=== PATIENT | female | born 1980 | race Caucasian/White ===

== ENCOUNTER 2024-03-09 15:18 | Emergency (ER) | payer MEDICAID, SELFPAY ==
[2024-03-09 15:21] VITALS: BP 113/79; PULSE 86; RESP 18; TEMP 36.6; O2SAT 97
[2024-03-09 15:37] VITALS: PULSE 76; RESP 16; O2SAT 98; BMI 32.9
--- NOTE | 2024-03-09 15:41 | EDNOTE_ITS ---
ED General RME/HPI General Chief complaint: Weakness Stated complaint: WEAKNESS Time Seen by Provider: 03/09/24 15:26 Arrival date/time: 03/09/24 15:18 CC: Nausea vomiting diarrhea, insomnia HPI for the past 3 days. The patient states that she has still been taking her medications. The patient came with a large bag of large number of medication which the patient takes she takes all up. The patient denies chest pain shortness of breath or difficulty breathing. Somewhat concrete thinker animated direct eye contact denies SI SA. No active vomiting or diarrhea at the time of exam. EMS reports stable vital signs and route. Related Data Home Medications ?Medication ?Instructions ?Recorded ?Confirmed fluoxetine 20 mg capsule (Prozac) 60 mg PO QAM #0 caps 11/04/16 07/04/21 quetiapine 300 mg tablet 300 mg PO QDAY 07/04/21 07/04/21 topiramate 100 mg tablet 100 mg PO BID 07/04/21 07/04/21 Previous Rx's ?Medication ?Instructions ?Recorded hydrocodone 5 mg-acetaminophen 325 1 tab PO BID PRN pain #4 tabs 07/04/21 mg tablet ibuprofen 800 mg tablet 800 mg PO TID PRN pain #30 tabs 07/04/21 ibuprofen 800 mg tablet 800 mg PO TID PRN pain #30 tabs 07/21/21 lidocaine HCl 2 % mucosal solution 10 ml PO Q6HR PRN pain #200 mL 07/21/21 (Lidocaine Viscous) tramadol 37.5 mg-acetaminophen 325 1 tab PO TID PRN pain #30 tabs 07/28/21 mg tablet (Ultracet) acetaminophen 500 mg capsule 1,000 mg (2 x 500 mg) PO Q8HR PRN 08/20/21 pain #60 caps doxycycline hyclate 100 mg tablet 100 mg PO BID #14 tabs 08/20/21 cyclobenzaprine 10 mg tablet 10 mg PO TID PRN muscle spasm #20 09/28/21 tabs naproxen 500 mg tablet (Naprosyn) 500 mg PO Q12H PRN pain #30 tabs 09/28/21 albuterol sulfate 90 mcg/actuation 2 puff inhalation Q6H PRN 11/13/21 aerosol inhaler (Ventolin HFA) shortness of breath or wheezing #8.5 grams promethazine-DM 6.25 mg-15 mg/5 mL 5 ml PO Q6H PRN cough #473 mL 11/13/21 oral syrup azithromycin 500 mg tablet See Rx Instructions PO .COMPLEX #6 12/05/21 tabs benzonatate 100 mg capsule 100 mg PO BID PRN cough #20 caps 12/05/21 albuterol sulfate 90 mcg/actuation 2 inh inhalation Q4H PRN shortness 12/16/21 aerosol inhaler of breath or wheezing #8.5 grams acetaminophen 500 mg tablet 1,000 mg (2 x 500 mg) PO Q6H PRN 05/25/22 pain #20 tabs ibuprofen 800 mg tablet 800 mg PO Q6H PRN pain #10 tabs 05/25/22 sennosides 8.6 mg-docusate sodium 1 tab-cap PO QDAY #10 tabs 05/25/22 50 mg tablet (Senokot-S) hydrocodone 5 mg-acetaminophen 325 1 tab PO Q8H PRN pain #10 tabs 06/01/22 mg tablet ibuprofen 800 mg tablet 800 mg PO Q8H PRN pain #30 tabs 06/01/22 magnesium citrate 300 ml PO QDAY PRN constipation 12/18/22 #296 mL Allergies Allergy/AdvReac Type Severity Reaction Status Date / Time amoxicillin Allergy Severe RASH TO Verified 01/14/23 07:52 ARMPITS Review of Systems Review of Systems Narrative Review of Systems: GEN: No fever, no chills, no weight loss EYES: No discharge, no visual changes, no pain HEENT: No ear pain, no congestion, no sore throat PULM: No shortness of breath, no cough, no congestion CV: No chest pain, no dyspnea on exertion, no palpitations GI: + nausea, + vomiting, + diarrhea, no pain, no constipation : No frequency, no urgency, no dysuria MUSC/SKEL: No joint pain, no back pain SKIN: No rash PSYCH: No hallucinations, no depression, + HEME/LYMPH: No easy bleeding or bruising tendencies NEURO: No weakness, no headache Past Medical History Past Medical History CARDIAC: Negative Cardiac Disorders or Congestive Heart Failure RESPIRATORY: Negative Chronic Obstructive Pulmonary Disease (COPD) or Asthma GENITOURINARY: Negative Renal Disease MUSCULOSKELETAL: Positive Fibromyalgia ENDOCRINE: Negative Diabetes Mellitus Type 1 or Diabetes Mellitus Type 2 HEMATOLOGIC: Negative Sickle Cell Disease PSYCHO/SOCIAL: Positive Depression, Anxiety and Behavior Problems Social History SMOKING STATUS: Current every day smoker SUBSTANCE USE: does not use ED Exam Narrative Physical exam: [General: Obese, anxious, but not in any acute distress Head normocephalic HEENT: Eyes pupils are PERRLA EOMs are intact mouth pink moist membranes uvula is midline swallow symmetrical phonation is normal nose no rhinorrhea all other subsystems of HEENT are within acceptable limits Neck is supple nontender no JVD no edema Chest equal chest rise nontender to palpation Respiratory: Clear to auscultation no wheezes crackles or rubs CV: Rate rhythm is regular no murmurs rubs or clicks Abdomen is distended secondary to body habitus soft nontender, positive bowel sounds all 4 quadrants Back: No CVA tenderness no spinous process tenderness from cervical spine thoracic and lumbar spine Skin: Intact no petechiae rash induration ulceration or crepitus Extremities: Moving all extremity against resistance cap refill less than 2 seconds neurosensory intact Neuro: Awake alert oriented x3 Glascow coma 15 no focal deficits] Course Quality Measures none Orders Category Date Time Status CBC Stat Lab 03/09/24 16:01 Completed CMP [Comprehensive Metabolic Panel] Stat Lab 03/09/24 16:01 Completed Drug Screen,Urine Stat Lab 03/09/24 15:56 Completed HCG Qualitative,Urine Stat Lab 03/09/24 15:56 Completed Urinalysis Stat Lab 03/09/24 15:56 Completed Vital Signs Vital signs: Vital Signs Temperature 97.9 F 03/09/24 15:21 Pulse Rate 86 03/09/24 15:21 Respiratory Rate 18 03/09/24 15:21 Blood Pressure 113/79 03/09/24 15:21 Pulse Oximetry (%) 97 03/09/24 15:21 Oxygen Delivery Method Room Air 03/09/24 15:21 [facility] Patient data External records reviewed:: [facility] previous records and EMS form Clinical information provided by:: patient and EMS Social determinants that could affect healthcare access:: mental health Patient has the following chronic illnesses:: Schizophrenia How is presenting disease/condition affected by chronic disease/condition?: u neffected by Evaluation data The following diagnostics were reviewed and interpreted by me:: lab results Lab and/or radiology exams considered but not ordered:: CBC shows no acute leukocytosis anemia thrombocytopenia CMP shows no acute electrolyte imbalances renal impairment transaminitis or T. bili elevation Urine is negative for UTI UDS is positive for methamphetamines Urine is negative Interpretation Summary: Patient most likely cannot sleep secondary to methamphetamine use patient will be discharged home. Patient has had no nausea vomiting or diarrhea since admission to the emergency room. Medications Medications considered but not ordered:: None Medication administrations:: None Consultations Consultation(s) initiated? (list below): No Diagnosis Differential Diagnosis ED Complaint MDM: Methamphetamine abuse nausea vomiting Most likely diagnosis given after review of the tests above:: Methamphetamine abuse nausea vomiting Admission Indicated Admission indicated?: not indicated Explain why admission is indicated or not indicated:: Stable for outpatient follow-up Admission Request Was there a request for admission?: No Disposition Plan Disposition Plan: Discharge Discharge Attestation Discharge Attestation: The patient and all family members were given an opportunity to ask questions and understood the discharge instructions. Discharge instructions specifically effects, indications for sooner follow up or return to the emergency department, and the expected course of current diagnosis. Patient condition: Stable Medical Decision Making Differential Diagnosis Differential Diagnosis: Methamphetamine abuse nausea vomiting Lab Data 03/09/24 16:01 03/09/24 16:01 Labs: Lab Results 03/09/24 03/09/24 Range/Units 15:56 16:01 WBC 10.6 (3.6-11.0) Thou/mm3 RBC 5.55 H (4.00-5.20) Miln/mm3 Hgb 17.5 H (12.0-16.0) g/dL Hct 49.1 H (36.0-46.0) % MCV 89 (80-100) fL MCH 31.5 (25.0-35.0) pg MCHC 35.6 (31.0-37.0) g/dl RDW Std Deviation 40.5 (36.4-46.3) fL Plt Count 343 (140-440) Thou/mm3 Neut % (Auto) 67 (37-80) % Lymph % (Auto) 22 (10-50) % Ogle % (Auto) 10 (0-12) % Eos % (Auto) 1 (0-10) % Baso % (Auto) 1 (0-2.5) % Neut # (Auto) 7.1 (1.8-7.7) Thou/mm3 Lymph # (Auto) 2.3 (1.0-4.8) Thou/mm3 Ogle # (Auto) 1.0 H (0.0-0.8) Thou/mm3 Eos # (Auto) 0.1 (0.0-0.5) Thou/mm3 Baso # (Auto) 0.1 (0.0-0.2) Thou/mm3 Immature Gran # (Auto) 0.04 H (0.00-0.00) Thou/mm3 Absolute Nucleated RBC 0.00 (0.00-0.00) Thou/mm3 Immature Gran % 0 (0-0) % Nucleated RBC % 0 (0) /100 WBC Sodium 136 (136-145) mMol/L Potassium 3.4 (3.4-5.1) mMol/L Chloride 106 (98-107) mMol/L Carbon Dioxide 20.5 (20.0-31.0) mMol/L Anion Gap 10 (7-16) BUN 12 (9-23) mg/dL Creatinine 0.9 (0.6-1.3) mg/dL Estim Creat Clear Calc 79.0 (>60) mL/min eGFR > 60 (60 - ) See Note BUN/Creatinine Ratio 13 (12-20) Ratio Glucose 98 (74-106) mg/dL Calculated Osmolality 271 L (275-295) Calcium 10.9 H (8.3-10.6) mg/dL Corrected Calcium 10.9 H (8.5-10.1) mg/dL Total Bilirubin 0.5 (0.3-1.2) mg/dL AST 11 (0-34) U/L ALT 19 (10-49) U/L Alkaline Phosphatase 71 (46-116) U/L Total Protein 7.3 (5.7-8.2) gm/dL Albumin 4.9 (3.5-5.0) gm/dL Globulin 2.4 (2.3-3.5) gm/dL Albumin/Globulin Ratio 2.0 (1.2-2.2) Ur Collection Type Clean Catch Urine Color Yellow (Lt Yel-Yel) Urine Clarity Hazy (Clear/Hazy) Urine pH 6.0 (5.0-7.0) Ur Specific [place] 1.027 (1.001-1.035) Urine Protein 1+ A (Neg - Trace) Urine Glucose (UA) Negative (Negative) Urine Ketones 3+ A (Negative) Urine Blood 1+ A (Negative) Urine Nitrite Negative (Negative) Urine Bilirubin 1+ A (Negative) Urine Urobilinogen (Auto) 3.0 (0.0-1.0) mg/dL Ur Leukocyte Esterase Negative (Negative) Urine RBC 11 H (0-3) /hpf Urine WBC 22 H (0-5) /hpf Ur Squamous Epith Cells 22 H (0-5) /hpf Urine Bacteria 3+ A (None) Hyaline Casts < 1 (0-1) /hpf Urine HCG, Qual Negative Urine Opiates Screen Negative (Negative) Urine Fentanyl Screen Negative (Negative) Ur Barbiturates Screen Negative (Negative) U Amphetamin/Meth Scrn Positive A (Negative) U Benzodiazepines Scrn Negative (Negative) U Cocaine Metab Screen Negative (Negative) U Marijuana (THC) Screen Positive A (Negative) Discharge Plan Plan Patient Disposition: HOME (Self Care) Patient condition on transfer: Stable Prescriptions/Referrals Prescriptions/Med Rec: No Action fluoxetine [Prozac] 20 MG capsule 60 mg PO QAM Qty: 0 ibuprofen 800 mg tablet 800 mg PO TID PRN (Reason: pain) Qty: 30 0RF lidocaine HCl [Lidocaine Viscous] 2 % solution 10 ml PO Q6HR PRN (Reason: pain ) Qty: 200 0RF quetiapine 300 mg tablet 300 mg PO QDAY Patient Comments: TAKE 2 TABLETS BY MOUTH EVERY NIGHT AT BEDTIME topiramate 100 mg Tablet 100 mg PO BID ibuprofen 800 mg tablet 800 mg PO TID PRN (Reason: pain) Qty: 30 0RF hydrocodone-acetaminophen 5-325 mg tablet 1 tab PO BID MDD 10 PRN (Reason: pain) Qty: 4 0RF tramadol-acetaminophen [Ultracet] 37.5-325 mg tablet 1 tab PO TID PRN (Reason: pain) Qty: 30 0RF acetaminophen 500 mg capsule 1,000 mg PO Q8HR PRN (Reason: pain) Qty: 60 0RF doxycycline hyclate 100 mg tablet 100 mg PO BID Qty: 14 0RF naproxen [Naprosyn] 500 mg tablet 500 mg PO Q12H PRN (Reason: pain) Qty: 30 0RF cyclobenzaprine 10 mg tablet 10 mg PO TID PRN (Reason: muscle spasm) Qty: 20 0RF albuterol sulfate [Ventolin HFA] 90 mcg/actuation HFA aerosol inhaler 2 puff inhalation Q6H PRN (Reason: shortness of breath or wheezing) Qty: 8.5 0RF promethazine-DM 6.25-15 mg/5 mL syrup 5 ml PO Q6H PRN (Reason: cough) Qty: 473 0RF albuterol sulfate 90 mcg/actuation HFA aerosol inhaler 2 inh inhalation Q4H PRN (Reason: shortness of breath or wheezing) Qty: 8.5 0RF ibuprofen 800 mg tablet 800 mg PO Q6H PRN (Reason: pain) Qty: 10 0RF acetaminophen 500 mg tablet 1,000 mg PO Q6H PRN (Reason: pain) Qty: 20 0RF sennosides-docusate sodium [Senokot-S] 8.6-50 mg tablet 1 tab-cap PO QDAY Qty: 10 0RF magnesium citrate Solution 300 ml PO QDAY PRN (Reason: constipation) Qty: 296 0RF azithromycin 500 mg tablet See Rx Instructions .ROUTE .COMPLEX Qty: 6 0RF Rx Instructions: take 500 mg today (day 1), then 250 mg for 4 days (days 2-5) benzonatate 100 mg capsule 100 mg PO BID PRN (Reason: cough) Qty: 20 0RF ibuprofen 800 mg tablet 800 mg PO Q8H PRN (Reason: pain) Qty: 30 0RF hydrocodone-acetaminophen 5-325 mg tablet 1 tab PO Q8H MDD 10 PRN (Reason: pain) Qty: 10 0RF Referrals: Avinash Patel MD [Primary Care Provider] - In 1 week Problem List Clinical Impression: Methamphetamine abuse, Nausea & vomiting Patient/Caregiver Discharge Instructions Education Materials: Understanding Methamphetamine ..., ED Diet for Vomiting or ... Print Language: Kazakh Stand Alone Forms: Carola Award Info., Patient Portal Info Letter, Work/School Release PA/DIE MAKER STAMPING Supervising Physician PA/DIE MAKER STAMPING Supervising Physician: John Pang ENP
[2024-03-09 16:06] LABS: Collection Type, Urine Clean Catch
[2024-03-09 16:26] LABS: Amphetamine/Methamp Scrn,U Positive (Negative); Barbiturate Screen,Urine Negative (Negative); Benzodiazepines Screen,Urine Negative (Negative); Benzoylecgonine Screen, Ur Negative (Negative); Fentanyl Screen,Urine Negative (Negative); Opiate Screen,Urine Negative (Negative); THC Screen,Urine Positive (Negative)
[2024-03-09 16:26] LABS: Basophils # (Auto) 0.1 Thou/mm3 (0.0-0.2); Basophils % (Auto) 1 % (0-2.5); Eosinophils # (Auto) 0.1 Thou/mm3 (0.0-0.5); Eosinophils % (Auto) 1 % (0-10); Hematocrit 49.1 % (36.0-46.0); Hemoglobin 17.5 g/dL (12.0-16.0); Immature Granulocytes % (Auto) 0 % (0-0); Immature Granulocytes Auto 0.04 Thou/mm3 (0.00-0.00); Lymphocytes # (Auto) 2.3 Thou/mm3 (1.0-4.8); Lymphocytes % (Auto) 22 % (10-50); Mean Corpuscular HGB Conc 35.6 g/dl (31.0-37.0); Mean Corpuscular Hemoglobin 31.5 pg (25.0-35.0); Mean Corpuscular Volume 89 fL (80-100); Monocytes % (Auto) 10 % (0-12); Neutrophils # (Auto) 7.1 Thou/mm3 (1.8-7.7); Neutrophils % (Auto) 67 % (37-80); Nucleated Red Blood Cell % 0 /100 WBC (0); Platelet Count 343 Thou/mm3 (140-440); RDW Standard Deviation 40.5 fL (36.4-46.3); Red Blood Count 5.55 Miln/mm3 (4.00-5.20); White Blood Count 10.6 Thou/mm3 (3.6-11.0)
[2024-03-09 16:32] LABS: Bacteria,Urine 3+; Bilirubin,Urine 1+ (Negative); Blood,Urine 1+ (Negative); Clarity,Urine Hazy (Clear/Hazy); Color,Urine Yellow (Lt Yel-Yel); Glucose, Urine Negative (Negative); Hyaline Casts,Urine < 1 /hpf (0-1); Ketones,Urine 3+ (Negative); Leukocyte Esterase,Urine Negative (Negative); Nitrite,Urine Negative (Negative); Protein,Urine 1+ (Neg - Trace); RBC,Urine 11 /hpf (0-3); Specific Gravity,Urine 1.027 (1.001-1.035); Squamous Epithelial Cell,Urine 22 /hpf (0-5); WBC,Urine 22 /hpf (0-5)
[2024-03-09 16:37] VITALS: BP 104/77; PULSE 84; RESP 16; TEMP 36.6; O2SAT 98
[2024-03-09 16:38] LABS: HCG Qualitative,Urine Negative
[2024-03-09 16:46] LABS: Alanine Aminotransferase 19 U/L (10-49); Albumin, Serum 4.9 gm/dL (3.5-5.0); Alkaline Phosphatase 71 U/L (46-116); Anion Gap 10 (7-16); Aspartate Amino Transferase 11 U/L (0-34); BUN/Creatinine Ratio 13 Ratio (12-20); Bilirubin,Total 0.5 mg/dL (0.3-1.2); Blood Urea Nitrogen 12 mg/dL (9-23); Calcium 10.9 mg/dL (8.3-10.6); Calcium (Corrected) 10.9 mg/dL (8.5-10.1); Carbon Dioxide 20.5 mMol/L (20.0-31.0); Chloride 106 mMol/L (98-107); Creatinine (Component) 0.9 mg/dL (0.6-1.3); Globulin 2.4 gm/dL (2.3-3.5); Glucose 98 mg/dL (74-106); Osmolality,Calculated 271 (275-295); Potassium 3.4 mMol/L (3.4-5.1); Sodium 136 mMol/L (136-145); Total Protein 7.3 gm/dL (5.7-8.2); eGFR > 60 See Note
== END 2024-03-09 17:03 | disposition home or self-care (01) ==
PROVIDERS: Registered Nurse General Practice; Emergency Provider Emergency Medicine; PCP Family Medicine
DX: F15.10 Other stimulant abuse, uncomplicated (principal); R11.2 Nausea with vomiting, unspecified; G47.00 Insomnia, unspecified
CPT/HCPCS: 36415; 80053; 80307; 81001; 81025; 85025; 99283

== ENCOUNTER 2024-04-11 13:39 | Emergency (ER) | payer MEDICAID, SELFPAY ==
[2024-04-11 13:43] VITALS: BMI 32.3
[2024-04-11 13:58] VITALS: BP 126/87; PULSE 98; RESP 19; TEMP 36.6; O2SAT 96
--- NOTE | 2024-04-11 14:08 | EDNOTE_ITS ---
ED General RME/HPI General Chief complaint: Recheck/Abnormal Lab/Rx Stated complaint: Need RX for Seroquil Time Seen by Provider: 04/11/24 14:01 Arrival date/time: 04/11/24 13:39 CC: Insomnia HPI patient is requesting a refill of her Seroquel secondary to insomnia created for not taking it for the past 4 days patient is awake alert oriented has no new complaints. Related Data Home Medications ?Medication ?Instructions ?Recorded ?Confirmed fluoxetine 20 mg capsule (Prozac) 60 mg PO QAM #0 caps 11/04/16 07/04/21 quetiapine 300 mg tablet 300 mg PO QDAY 07/04/21 07/04/21 topiramate 100 mg tablet 100 mg PO BID 07/04/21 07/04/21 Previous Rx's ?Medication ?Instructions ?Recorded hydrocodone 5 mg-acetaminophen 325 1 tab PO BID PRN pain #4 tabs 07/04/21 mg tablet ibuprofen 800 mg tablet 800 mg PO TID PRN pain #30 tabs 07/04/21 ibuprofen 800 mg tablet 800 mg PO TID PRN pain #30 tabs 07/21/21 lidocaine HCl 2 % mucosal solution 10 ml PO Q6HR PRN pain #200 mL 07/21/21 (Lidocaine Viscous) tramadol 37.5 mg-acetaminophen 325 1 tab PO TID PRN pain #30 tabs 07/28/21 mg tablet (Ultracet) acetaminophen 500 mg capsule 1,000 mg (2 x 500 mg) PO Q8HR PRN 08/20/21 pain #60 caps doxycycline hyclate 100 mg tablet 100 mg PO BID #14 tabs 08/20/21 cyclobenzaprine 10 mg tablet 10 mg PO TID PRN muscle spasm #20 09/28/21 tabs naproxen 500 mg tablet (Naprosyn) 500 mg PO Q12H PRN pain #30 tabs 09/28/21 albuterol sulfate 90 mcg/actuation 2 puff inhalation Q6H PRN 11/13/21 aerosol inhaler (Ventolin HFA) shortness of breath or wheezing #8.5 grams promethazine-DM 6.25 mg-15 mg/5 mL 5 ml PO Q6H PRN cough #473 mL 11/13/21 oral syrup azithromycin 500 mg tablet See Rx Instructions PO .COMPLEX #6 12/05/21 tabs benzonatate 100 mg capsule 100 mg PO BID PRN cough #20 caps 12/05/21 albuterol sulfate 90 mcg/actuation 2 inh inhalation Q4H PRN shortness 12/16/21 aerosol inhaler of breath or wheezing #8.5 grams acetaminophen 500 mg tablet 1,000 mg (2 x 500 mg) PO Q6H PRN 05/25/22 pain #20 tabs ibuprofen 800 mg tablet 800 mg PO Q6H PRN pain #10 tabs 05/25/22 sennosides 8.6 mg-docusate sodium 1 tab-cap PO QDAY #10 tabs 05/25/22 50 mg tablet (Senokot-S) hydrocodone 5 mg-acetaminophen 325 1 tab PO Q8H PRN pain #10 tabs 06/01/22 mg tablet ibuprofen 800 mg tablet 800 mg PO Q8H PRN pain #30 tabs 06/01/22 magnesium citrate 300 ml PO QDAY PRN constipation 12/18/22 #296 mL quetiapine 300 mg tablet (Seroquel) 300 mg PO .qhs #30 tabs 04/11/24 Allergies Allergy/AdvReac Type Severity Reaction Status Date / Time amoxicillin Allergy Severe RASH TO Verified 01/14/23 07:52 ARMPITS Review of Systems Review of Systems Narrative Review of Systems: GEN: No fever, no chills, no weight loss,+ insomnia EYES: No discharge, no visual changes, no pain HEENT: No ear pain, no congestion, no sore throat PULM: No shortness of breath, no cough, no congestion CV: No chest pain, no dyspnea on exertion, no palpitations GI: No nausea, no vomiting, no diarrhea, no pain, no constipation : No frequency, no urgency, no dysuria MUSC/SKEL: No joint pain, no back pain SKIN: No rash PSYCH: No hallucinations, no depression HEME/LYMPH: No easy bleeding or bruising tendencies NEURO: No weakness, no headache Past Medical History Past Medical History CARDIAC: Negative Cardiac Disorders or Congestive Heart Failure RESPIRATORY: Negative Chronic Obstructive Pulmonary Disease (COPD) or Asthma GENITOURINARY: Negative Renal Disease MUSCULOSKELETAL: Positive Fibromyalgia ENDOCRINE: Negative Diabetes Mellitus Type 1 or Diabetes Mellitus Type 2 HEMATOLOGIC: Negative Sickle Cell Disease PSYCHO/SOCIAL: Positive Depression, Anxiety and Behavior Problems Social History SMOKING STATUS: Former smoker SUBSTANCE USE: does not use ED Exam Narrative Physical exam: [General: Obese not in any acute distress Head normocephalic HEENT: Within acceptable limits Neck is supple nontender Chest equal chest rise nontender to palpation Respiratory: Clear to auscultation no wheezes crackles or rubs CV: Rate rhythm is regular no murmurs rubs or clicks Abdomen is distended secondary to body habitus soft nontender no masses positive bowel sounds all 4 quadrants Back: No CVA tenderness no spinous process tenderness from cervical spine thoracic and lumbar spine Skin: Intact no petechiae rash induration ulceration or crepitus Extremities: Moving all extremity against resistance cap refill less than 2 seconds neurosensory intact Neuro: Awake alert oriented x3 Glascow coma 15 no focal deficits] Course Quality Measures VTE prophylaxis Vital Signs Vital signs: Vital Signs Temperature 97.9 F 04/11/24 13:58 Pulse Rate 98 04/11/24 13:58 Respiratory Rate 19 04/11/24 13:58 Blood Pressure 126/87 H 04/11/24 13:58 Pulse Oximetry (%) 96 04/11/24 13:58 Oxygen Delivery Method Room Air 04/11/24 13:58 MDM Patient data External records reviewed:: [facility] previous records Clinical information provided by:: patient Social determinants that could affect healthcare access:: mental health Patient has the following chronic illnesses:: None How is presenting disease/condition affected by chronic disease/condition?: uneffected by Evaluation data The following diagnostics were reviewed and interpreted by me:: other (specify) (None) Lab and/or radiology exams considered but not ordered:: None Interpretation Summary: Medication refill Medications Medications considered but not ordered:: None Medication administrations:: None Consultations Consultation(s) initiated? (list below): No Diagnosis Differential Diagnosis ED Complaint MDM: Medication refill medication noncompliance medication abuse Most likely diagnosis given after review of the tests above:: Medication filled for bipolar disorder Admission Indicated Admission indicated?: not indicated Explain why admission is indicated or not indicated:: Stable for outpatient follow-up Admission Request Was there a request for admission?: No Disposition Plan Disposition Plan: Discharge Discharge Attestation Discharge Attestation: The patient and all family members were given an opportunity to ask questions and understood the discharge instructions. Discharge instructions specifically effects, indications for sooner follow up or return to the emergency department, and the expected course of current diagnosis. Patient condition: Stable Medical Decision Making Differential Diagnosis Differential Diagnosis: Medication refill medication noncompliance medication abuse Discharge Plan Plan Patient Disposition: HOME (Self Care) Patient condition on transfer: Stable Prescriptions/Referrals Prescriptions/Med Rec: New quetiapine [Seroquel] 300 mg tablet 300 mg PO .qhs Qty: 30 0RF No Action fluoxetine [Prozac] 20 MG capsule 60 mg PO QAM Qty: 0 ibuprofen 800 mg tablet 800 mg PO TID PRN (Reason: pain) Qty: 30 0RF lidocaine HCl [Lidocaine Viscous] 2 % solution 10 ml PO Q6HR PRN (Reason: pain ) Qty: 200 0RF quetiapine 300 mg tablet 300 mg PO QDAY Patient Comments: TAKE 2 TABLETS BY MOUTH EVERY NIGHT AT BEDTIME topiramate 100 mg Tablet 100 mg PO BID ibuprofen 800 mg tablet 800 mg PO TID PRN (Reason: pain) Qty: 30 0RF hydrocodone-acetaminophen 5-325 mg tablet 1 tab PO BID MDD 10 PRN (Reason: pain) Qty: 4 0RF tramadol-acetaminophen [Ultracet] 37.5-325 mg tablet 1 tab PO TID PRN (Reason: pain) Qty: 30 0RF acetaminophen 500 mg capsule 1,000 mg PO Q8HR PRN (Reason: pain) Qty: 60 0RF doxycycline hyclate 100 mg tablet 100 mg PO BID Qty: 14 0RF naproxen [Naprosyn] 500 mg tablet 500 mg PO Q12H PRN (Reason: pain) Qty: 30 0RF cyclobenzaprine 10 mg tablet 10 mg PO TID PRN (Reason: muscle spasm) Qty: 20 0RF albuterol sulfate [Ventolin HFA] 90 mcg/actuation HFA aerosol inhaler 2 puff inhalation Q6H PRN (Reason: shortness of breath or wheezing) Qty: 8.5 0RF promethazine-DM 6.25-15 mg/5 mL syrup 5 ml PO Q6H PRN (Reason: cough) Qty: 473 0RF albuterol sulfate 90 mcg/actuation HFA aerosol inhaler 2 inh inhalation Q4H PRN (Reason: shortness of breath or wheezing) Qty: 8.5 0RF ibuprofen 800 mg tablet 800 mg PO Q6H PRN (Reason: pain) Qty: 10 0RF acetaminophen 500 mg tablet 1,000 mg PO Q6H PRN (Reason: pain) Qty: 20 0RF sennosides-docusate sodium [Senokot-S] 8.6-50 mg tablet 1 tab-cap PO QDAY Qty: 10 0RF magnesium citrate Solution 300 ml PO QDAY PRN (Reason: constipation) Qty: 296 0RF azithromycin 500 mg tablet See Rx Instructions .ROUTE .COMPLEX Qty: 6 0RF Rx Instructions: take 500 mg today (day 1), then 250 mg for 4 days (days 2-5) benzonatate 100 mg capsule 100 mg PO BID PRN (Reason: cough) Qty: 20 0RF ibuprofen 800 mg tablet 800 mg PO Q8H PRN (Reason: pain) Qty: 30 0RF hydrocodone-acetaminophen 5-325 mg tablet 1 tab PO Q8H MDD 10 PRN (Reason: pain) Qty: 10 0RF Problem List Clinical Impression: Bipolar disorder Patient/Caregiver Discharge Instructions Education Materials: ED Bipolar Disorder Print Language: Irish Stand Alone Forms: Carola Award Info., Work/School Release, Patient Portal Info Letter PA/REGIONAL ACCOUNT EXECUTIVE Supervising Physician PA/REGIONAL ACCOUNT EXECUTIVE Supervising Physician: John Pang ENP
== END 2024-04-11 14:31 | disposition home or self-care (01) ==
LOC: SERX 14:21
PROVIDERS: Emergency Provider Emergency Medicine; PCP Family Medicine
DX: F31.9 Bipolar disorder, unspecified (principal)
CPT/HCPCS: 99281

== ENCOUNTER 2024-06-14 17:26 | Emergency (ER) | payer MEDICAID, SELFPAY ==
[2024-06-14 17:52] VITALS: BP 138/94; PULSE 84; RESP 20; TEMP 36.5; O2SAT 95
--- NOTE | 2024-06-14 17:57 | EDRME_ITS ---
Rapid Medical Screening Exam COUNTS INCLUDE 234 BEDS AT THE [facility] Arrival date/time: 06/14/24 17:26 44-year-old female with no known medical history presents to the emergency room with a chief complaint of nausea vomiting x 1 day. Patient states she was also having suicidal thoughts and states her plan is to take a bottle full of pills. I have greeted and performed a focused initial assessment of this patient. A comprehensive ED assessment and evaluation of the patient, analysis of all test results, and completion of the medical decision making process will be conducted by additional ED providers. Chief Complaint: Shortness of Breath/Dyspnea Vital signs: Vital Signs Temperature 97.7 F 06/14/24 17:52 Pulse Rate 84 06/14/24 17:52 Respiratory Rate 20 06/14/24 17:52 Blood Pressure 138/94 H 06/14/24 17:52 Pulse Oximetry (%) 95 06/14/24 17:52 Oxygen Delivery Method Room Air 06/14/24 17:52 Vital signs reviewed by provider: Yes
[2024-06-14] MEDS: ACETAMINOPHEN 325 MG TABLET 650 MG PO (18:34)
[2024-06-14] MEDS: ONDANSETRON ODT 4 MG TABRAP PO (18:35)
[2024-06-14 18:56] LABS: Basophils % (Auto) 0 % (0-2.5); Eosinophils # (Auto) 0.1 Thou/mm3 (0.0-0.5); Eosinophils % (Auto) 1 % (0-10); Hematocrit 46.3 % (36.0-46.0); Hemoglobin 15.4 g/dL (12.0-16.0); Immature Granulocytes % (Auto) 1 % (0-0); Immature Granulocytes Auto 0.05 Thou/mm3 (0.00-0.00); Lymphocytes # (Auto) 2.5 Thou/mm3 (1.0-4.8); Lymphocytes % (Auto) 23 % (10-50); Mean Corpuscular HGB Conc 33.3 g/dl (31.0-37.0); Mean Corpuscular Hemoglobin 29.1 pg (25.0-35.0); Mean Corpuscular Volume 87 fL (80-100); Monocytes # (Auto) 1.1 Thou/mm3 (0.0-0.8); Monocytes % (Auto) 10 % (0-12); Neutrophils # (Auto) 7.1 Thou/mm3 (1.8-7.7); Neutrophils % (Auto) 65 % (37-80); Nucleated Red Blood Cell % 0 /100 WBC (0); Platelet Count 337 Thou/mm3 (140-440); White Blood Count 10.9 Thou/mm3 (3.6-11.0)
[2024-06-14 19:16] LABS: Alanine Aminotransferase 44 U/L (10-49); Albumin, Serum 4.8 gm/dL (3.5-5.0); Albumin/Globulin Ratio 1.8 (1.2-2.2); Alkaline Phosphatase 64 U/L (46-116); Anion Gap 10 (7-16); Aspartate Amino Transferase 42 U/L (0-34); BUN/Creatinine Ratio 10 Ratio (12-20); Bilirubin,Total 0.8 mg/dL (0.3-1.2); Blood Urea Nitrogen 12 mg/dL (9-23); Calcium 11.7 mg/dL (8.3-10.6); Calcium (Corrected) 11.7 mg/dL (8.5-10.1); Carbon Dioxide 23.8 mMol/L (20.0-31.0); Chloride 100 mMol/L (98-107); Creatinine (Component) 1.2 mg/dL (0.6-1.3); Globulin 2.7 gm/dL (2.3-3.5); Glucose 93 mg/dL (74-106); Osmolality,Calculated 267 (275-295); Potassium 3.3 mMol/L (3.4-5.1); Sodium 134 mMol/L (136-145); Total Protein 7.5 gm/dL (5.7-8.2); eGFR 57 See Note
[2024-06-14 19:43] LABS: Collection Type, Urine Clean Catch
[2024-06-14 19:55] LABS: Bacteria,Urine Rare; Bilirubin,Urine Negative (Negative); Blood,Urine Negative (Negative); Clarity,Urine Clear (Clear/Hazy); Color,Urine Colorless (Lt Yel-Yel); Culture Indicated,Urine Not Indicated; Glucose, Urine Negative (Negative); Ketones,Urine Negative (Negative); Leukocyte Esterase,Urine Negative (Negative); Nitrite,Urine Negative (Negative); Protein,Urine Negative (Neg - Trace); RBC,Urine 1 /hpf (0-3); Specific Gravity,Urine 1.006 (1.001-1.035); Squamous Epithelial Cell,Urine 6 /hpf (0-5); Urobilinogen,Urine Negative mg/dL (0.0-1.0); WBC,Urine 1 /hpf (0-5)
[2024-06-14 19:56] LABS: HCG Qualitative,Urine Negative
[2024-06-14 20:02] VITALS: BP 94/68; PULSE 118; RESP 18; TEMP 36.7; O2SAT 97
[2024-06-14 20:05] LABS: Amphetamine/Methamp Scrn,U Positive (Negative); Barbiturate Screen,Urine Negative (Negative); Benzodiazepines Screen,Urine Negative (Negative); Benzoylecgonine Screen, Ur Negative (Negative); Fentanyl Screen,Urine Negative (Negative); Opiate Screen,Urine Negative (Negative); THC Screen,Urine Negative (Negative)
--- NOTE | 2024-06-15 00:50 | PC.NURSE ---
[facility]
--- NOTE | 2024-06-15 02:13 | PC.NURSE ---
N/A FROM [facility]
--- NOTE | 2024-06-15 02:49 | PC.NURSE ---
[facility]
== END 2024-06-15 02:49 | disposition left against medical advice (07) ==
PROVIDERS: Nurse Practitioner Family; Emergency Provider Emergency Medicine; PCP Family Medicine
DX: R06.02 Shortness of breath (principal); R06.00 Dyspnea, unspecified; R11.2 Nausea with vomiting, unspecified; R45.851 Suicidal ideations; Z53.29 Procedure and treatment not carried out because of patient's decision for other reasons
CPT/HCPCS: 36415; 80053; 80307; 81001; 81025; 85025; 99281; Q0162; A9270

== ENCOUNTER 2024-07-11 15:48 | Emergency (ER) | payer MEDICAID, SELFPAY ==
[2024-07-11 15:55] VITALS: PULSE 81; RESP 20; O2SAT 99
[2024-07-11 16:05] VITALS: BP 166/88; PULSE 83; RESP 20; TEMP 36.4; O2SAT 99
--- NOTE | 2024-07-11 16:25 | XR_ITS ---
Examination: Knee, right , 3 views Technique: Knee AP, lateral, oblique 3 views Date and time of exam: July 11, 2024 1816 hrs. Indications: Injury to the knee today, knee pain. Findings: No acute fracture. No dislocation No foreign body Impression: No acute fracture
--- NOTE | 2024-07-11 16:25 | XR_ITS ---
Examination: Foot, right, 3 views Technique: AP, oblique, lateral views foot, 3 views Date and time of exam: July 11, 2024 1809 hours INDICATIONS: Injury to the foot today, foot pain. FINDINGS: Comminuted fractures proximal fifth metatarsal without significant displacement No dislocation IMPRESSION: Comminuted fractures proximal fifth metatarsal
--- NOTE | 2024-07-11 16:25 | XR_ITS ---
Examination: Tibia-Fibula, right , 2 views Technique: Tibia-fibula AP lateral 2 views Date and time of exam: July 11, 2024 1816 hrs. Indications: Injury to lower leg today, lower leg pain. Findings: Small osteocartilaginous exostosis off the proximal tibia No acute fracture No dislocation No foreign body Impression: No acute fracture
--- NOTE | 2024-07-11 16:25 | XR_ITS ---
EXAMINATION: Ankle, right 3 views . Technique: Ankle AP, oblique, lateral 3 views Date and time of exam: July 13, 2024 1811 hours INDICATIONS: Injury to the ankle today, ankle pain. FINDINGS: No acute fracture No ankle dislocation IMPRESSION: No acute ankle fracture Fracture proximal fifth metatarsal without significant displacement
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
[2024-07-11] MEDS: ACETAMINOPHEN 500 MG TABLET 1000 MG PO (16:41)
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
[2024-07-11 17:08] LABS: Collection Type, Urine Voided
[2024-07-11 17:13] LABS: Bilirubin,Urine Negative (Negative); Blood,Urine Negative (Negative); Clarity,Urine Turbid (Clear/Hazy); Color,Urine Lt-Yellow (Lt Yel-Yel); Culture Indicated,Urine Not Indicated; Glucose, Urine Negative (Negative); Ketones,Urine Negative (Negative); Leukocyte Esterase,Urine Negative (Negative); Nitrite,Urine Negative (Negative); Protein,Urine Negative (Neg - Trace); RBC,Urine 1 /hpf (0-3); Specific Gravity,Urine 1.012 (1.001-1.035); Squamous Epithelial Cell,Urine 13 /hpf (0-5); Urobilinogen,Urine Negative mg/dL (0.0-1.0); WBC,Urine 2 /hpf (0-5)
[2024-07-11 17:15] LABS: HCG Qualitative,Urine Negative
[2024-07-11 20:46] LABS: Strep A Rapid Negative (Negative)
[2024-07-11 21:27] VITALS: BP 144/98; PULSE 77; RESP 17; TEMP 36.8; O2SAT 98
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
[2024-07-11] MEDS: IBUPROFEN TAB 600 MG TABLET PO (23:18)
[2024-07-11 23:40] VITALS: BP 129/87; PULSE 81; RESP 18; TEMP 36.5; O2SAT 99
== END 2024-07-11 23:40 | disposition home or self-care (01) ==
PROVIDERS: Nurse Practitioner Family; Emergency Provider Emergency Medicine
DX: S90.31XA Contusion of right foot, initial encounter (principal); M25.571 Pain in right ankle and joints of right foot; M25.561 Pain in right knee; M79.661 Pain in right lower leg; J02.9 Acute pharyngitis, unspecified; R05.9 Cough, unspecified; R09.89 Other specified symptoms and signs involving the circulatory and respiratory systems; M79.7 Fibromyalgia; F31.9 Bipolar disorder, unspecified; F20.9 Schizophrenia, unspecified; F17.210 Nicotine dependence, cigarettes, uncomplicated; W18.40XA Slipping, tripping and stumbling without falling, unspecified, initial encounter; Y93.01 Activity, walking, marching and hiking
CPT/HCPCS: 73562; 73590; 73610; 73630; 81001; 81025; 87400; 87651; 87811; 99283; A9270

== ENCOUNTER 2024-08-21 17:14 | Emergency (ER) | payer MEDICAID, SELFPAY ==
[2024-08-21 17:30] VITALS: BP 117/76; PULSE 90; RESP 20; TEMP 37.1; O2SAT 97
--- NOTE | 2024-08-21 18:41 | XR_ITS ---
Examination: Foot, left, 3 views Technique: AP, oblique, lateral views foot, 3 views Date and time of exam: August 21, 2024 1845 hours INDICATIONS: Left foot pain beginning 3 months ago FINDINGS: Minimal narrowing first metatarsophalangeal joint No fracture. No dislocation. No cortical bone destruction Minute plantar bony calcaneal spur IMPRESSION: Minimal narrowing first metatarsophalangeal joint Minute plantar bony calcaneal spur
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
[2024-08-21 19:14] LABS: Basophils % (Auto) 1 % (0-2.5); Eosinophils # (Auto) 0.2 Thou/mm3 (0.0-0.5); Eosinophils % (Auto) 3 % (0-10); Hematocrit 35.6 % (36.0-46.0); Hemoglobin 11.9 g/dL (12.0-16.0); Immature Granulocytes % (Auto) 0 % (0-0); Immature Granulocytes Auto 0.02 Thou/mm3 (0.00-0.00); Lymphocytes # (Auto) 2.4 Thou/mm3 (1.0-4.8); Lymphocytes % (Auto) 29 % (10-50); Mean Corpuscular HGB Conc 33.4 g/dl (31.0-37.0); Mean Corpuscular Hemoglobin 29.8 pg (25.0-35.0); Mean Corpuscular Volume 89 fL (80-100); Monocytes # (Auto) 0.9 Thou/mm3 (0.0-0.8); Monocytes % (Auto) 11 % (0-12); Neutrophils # (Auto) 4.7 Thou/mm3 (1.8-7.7); Neutrophils % (Auto) 57 % (37-80); Nucleated Red Blood Cell % 0 /100 WBC (0); Platelet Count 248 Thou/mm3 (140-440); RDW Standard Deviation 55.3 fL (36.4-46.3); Red Blood Count 3.99 Miln/mm3 (4.00-5.20); White Blood Count 8.3 Thou/mm3 (3.6-11.0)
--- NOTE | 2024-08-21 19:15 | PC.NURSE ---
ASSUMED CARE OF PATIENT, PATIENT ALERT AND IN NO ACUTE DISTRESS, PT C/O BILATERAL LEG PAIN AND SWELLING WITH THE RIGHT BEING WORSE THEN THE LEFT. THE RIGHT ONE HAS BEEN GOING ON FOR 3 MONTHS AND LEFT FOR A FEW WEEKS. LEGS ARE NOTED TO BE BILATERAL MILD TO +1 PITTING EDEMA. PT STATES THAT SHE IS HUNGRY AND WOULD LIKE SOME PAIN ORDERS. PT STATES THAT SHE CANT WALK OR STAND BECUASE SHE IS IN SO MUCH PAIN BUT WAS ABLE TO CATALOG LIBRARY ASSISTANT GET TO THE BEDSIDE COMMODE AND BACK IN BED. PT STATES THAT IF SHE IS ABLE TO GET PAIN MEDS SO MAY BE ABLE TO BEAR WEIGHT AND WALK, MD MADE AWARE OF PAIN AND GAVE THE OK FOR FOOD, WILL CONTINUE WITH PLAN OF CARE
[2024-08-21 19:28] LABS: Partial Thromboplastin Time 26.7 Seconds (22.0-36.0); Prothrombin Time 10.8 Seconds (9.0-12.2)
--- NOTE | 2024-08-21 19:31 | XR_ITS ---
Examination: Right ankle 2 views Technique one AP lateral right ankle 2 views Date and time: August 21, 2024 0807 hours INDICATIONS: Right ankle swelling and pain beginning 3 days ago. FINDINGS: No fracture or ankle dislocation Fracture line through the proximal right fifth metatarsal IMPRESSION: Recommend right foot films follow-up to confirm fracture of the right fifth metatarsal
--- NOTE | 2024-08-21 19:31 | XR_ITS ---
Examination: Foot, right, 3 views Technique: AP, oblique, lateral views foot, 3 views Date and time of exam: 2011 hours INDICATIONS: Right foot swelling and pain beginning 3 days ago. FINDINGS: Acute fractures proximal aspect fifth metatarsal, up to 2 mm separation of the main fracture fragments No dislocation No foreign body IMPRESSION: Acute fractures proximal fifth metatarsal
--- NOTE | 2024-08-21 19:34 | XR_ITS ---
Examination: Venous duplex lower extremity sonogram, bilateral. Date and time of exam: August 21, 2024 1953 hours INDICATIONS: Bilateral leg swelling and pain beginning 3 months ago Technique: Multiple sonographic images of the deep venous system have been obtained. B-mode/2-D grayscale imaging of vascular structures and Doppler spectral analysis (waveforms) and color performed Both legs are examined. Findings: Deep venous systems do not demonstrate abnormal echogenicity. All visualized deep veins exhibit compressibility. All visualized deep veins exhibit augmentation. Impression: Negative for deep vein thrombosis
[2024-08-21 19:39] VITALS: BP 129/81; PULSE 95; RESP 18; TEMP 36.5; O2SAT 99
[2024-08-21 19:43] LABS: Alanine Aminotransferase 19 U/L (10-49); Albumin, Serum 3.9 gm/dL (3.5-5.0); Alkaline Phosphatase 45 U/L (46-116); Anion Gap 7 (7-16); Aspartate Amino Transferase 19 U/L (0-34); BUN/Creatinine Ratio 18 Ratio (12-20); Bilirubin,Total 0.2 mg/dL (0.3-1.2); Blood Urea Nitrogen 11 mg/dL (9-23); Calcium (Corrected) 10.1 mg/dL (8.5-10.1); Carbon Dioxide 25.7 mMol/L (20.0-31.0); Chloride 106 mMol/L (98-107); Creatinine (Component) 0.6 mg/dL (0.6-1.3); Glucose 83 mg/dL (74-106); Osmolality,Calculated 275 (275-295); Potassium 3.4 mMol/L (3.4-5.1); Sodium 139 mMol/L (136-145); Total Protein 5.9 gm/dL (5.7-8.2); eGFR > 60 See Note
[2024-08-21] MEDS: HYDROcodone/APAP 5/325 TABLET 1 TAB PO (19:45)
[2024-08-21 22:35] VITALS: BP 118/76; PULSE 100; RESP 18; TEMP 36.8; O2SAT 96
== END 2024-08-22 00:06 | disposition home or self-care (01) ==
PROVIDERS: Emergency Provider Emergency Medicine; PCP Family Medicine
DX: S92.351A Displaced fracture of fifth metatarsal bone, right foot, initial encounter for closed fracture (principal); S99.922A Unspecified injury of left foot, initial encounter; M77.32 Calcaneal spur, left foot; M25.872 Other specified joint disorders, left ankle and foot; M79.89 Other specified soft tissue disorders; M79.7 Fibromyalgia; Y09 Assault by unspecified means
CPT/HCPCS: 29515; 36415; 73600; 73630; 80053; 85025; 85610; 85730; 93970; 99284; A9270

== ENCOUNTER 2024-09-06 12:04 | Emergency (ER) | payer MEDICAID, SELFPAY ==
--- NOTE | 2024-09-06 12:05 | EKG_ITS ---
[facility] Test Date: 2024-09-06 Pat Name: SAMUEL BARRERA Department: Room: - Gender: Female [employer]: : 1980 Requested By: ED Temporary Provider Order Number: [id number] Reading MD: ED Temporary Provider Measurements Intervals [place] Rate: 79 P: 54 FL: 143 QRS: 32 QRSD: 81 T: 48 QT: 351 QTc: 402 Interpretive Statements SINUS RHYTHM No previous ECG available for comparison /store/S0/[id number]
[2024-09-06 12:10] VITALS: BP 137/81; PULSE 98; RESP 18; TEMP 36.9; O2SAT 95
[2024-09-06 12:11] VITALS: BMI 35.2
--- NOTE | 2024-09-06 12:16 | EDNOTE_ITS ---
ED General RME/HPI General Chief complaint: General Adult/Misc Complain Stated complaint: LEG PAIN,HIP PAIN, ABD PAIN, CHEST PAIN Time Seen by Provider: 09/06/24 12:12 Arrival date/time: 09/06/24 12:04 Limitations: no limitations RME / HPI RME / HPI narrative: 44-year-old female with history of Schizophrenia and Fibromyalgia presenting to the emergency department via EMS. Comes in crying stating she is ready to go into rehab. Admits to drug use. States abdominal pain nausea vomiting diarrhea. Reports chest pain. Reports back pain. Reports bilateral leg pain reports bilateral hip pain. States a few weeks ago was diagnosed with right toe fracture. Requesting the foot be wrapped. States that she is dehydrated and wants fluids. No fevers. Citing she cannot walk however getting on and off the gurney. Related Data Home Medications ?Medication ?Instructions ?Recorded ?Confirmed fluoxetine 20 mg capsule (Prozac) 60 mg PO QAM #0 caps 11/04/16 07/04/21 quetiapine 300 mg tablet 300 mg PO QDAY 07/04/21 0409/19 topiramate 100 mg tablet 100 mg PO BID 07/04/2107/04 Previous Rx's ?Medication ?Instructions ?Recorded hydrocodone 5 mg-acetaminophen 325 1 tab PO BID PRN pa in #4 tabs 07/04/21 mg tablet ibuprofen 800 mg tablet 800 mg PO TID PRN pain #30 t abs 07/04/21 ibuprofen 800 mg tablet 800 mg PO TID PRN pain #30 t abs 07/21/21 lidocaine HCl 2 % mucosal solution 10 ml PO Q6HR PRN p ain #200 mL 07/21/21 (Lidocaine Viscous) tramadol 37.5 mg-acetaminophen 325 1 tab PO TID PRN pa in #30 tabs 07/28/21 mg tablet (Ultracet) acetaminophen 500 mg capsule 1,000 mg (2 x 500 mg) PO Q8HR PRN 08/20/21 pain #60 caps doxycycline hyclate 100 mg tablet 100 mg PO BID #14 ta bs 08/20/21 cyclobenzaprine 10 mg tablet 10 mg PO TID PRN muscle s pasm #20 09/28/21 tabs naproxen 500 mg tablet (Naprosyn) 500 mg PO Q12H PRN p ain #30 tabs 09/28/21 albuterol sulfate 90 mcg/actuation 2 puff inhalation Q 6H PRN 11/13/21 aerosol inhaler (Ventolin HFA) shortness of breath or wheezing #8.5 grams promethazine-DM 6.25 mg-15 mg/5 mL 5 ml PO Q6H PRN cou gh #473 mL 11/13/21 oral syrup azithromycin 500 mg tablet See Rx Instructions PO .COM PLEX #6 12/05/21 tabs benzonatate 100 mg capsule 100 mg PO BID PRN cough #20 caps 12/05/21 albuterol sulfate 90 mcg/actuation 2 inh inhalation Q4 H PRN shortness 12/16/21 aerosol inhaler of breath or wheezing #8.5 g shawanda acetaminophen 500 mg tablet 1,000 mg (2 x 500 mg) PO Q 6H PRN 05/25/22 pain #20 tabs ibuprofen 800 mg tablet 800 mg PO Q6H PRN pain #10 t abs 05/25/22 sennosides 8.6 mg-docusate sodium 1 tab-cap PO QDAY #1 0 tabs 05/25/22 50 mg tablet (Senokot-S) hydrocodone 5 mg-acetaminophen 325 1 tab PO Q8H PRN pa in #10 tabs 06/01/22 mg tablet ibuprofen 800 mg tablet 800 mg PO Q8H PRN pain #30 t abs 06/01/22 magnesium citrate 300 ml PO QDAY PRN constipat ion 12/18/22 #296 mL quetiapine 300 mg tablet (Seroquel) 300 mg PO .qhs #30 tabs 04/11/24 quetiapine 300 mg tablet (Seroquel) 300 mg PO QDAY #30 tabs 04/11/24 permethrin 5 % topical cream 1 applic topical Q14D 2 d oses #60 07/11/24 grams dicyclomine 10 mg capsule 10 mg PO TID #30 caps meloxicam 7.5 mg tablet 7.5 mg PO QDAY #14 tabs 12/23 ondansetron 4 mg disintegrating 4 mg PO Q8H PRN nausea and 09/06/24 tablet vomiting #10 tabs Allergies Allergy/AdvReac Type Severity Reaction Status Date / Time amoxicillin Allergy Severe RASH TO Verified 09/06/24 12:15 ARMPITS Review of Systems Review of Systems Systems Reviewed: All systems reviewed, normal except as documented Constitutional Constitutional: Denies fever(s) Cardiovascular Cardiovascular: Reports as per HPI Respiratory Respiratory: Reports as per HPI Gastrointestinal Gastrointestinal: Reports as per HPI Musculoskeletal Musculoskeletal: Reports as per HPI ED Exam General Limitations: Present no limitations General appearance: Present alert and in no apparent distress Eye Eye exam: Present normal appearance, PERRL and EOMI Chest Chest inspection: Present normal inspection and symmetric chest wall rise Respiratory Respiratory exam: Present normal lung sounds bilaterally Cardiovascular Cardiovascular exam: Present regular rate, normal rhythm and normal heart sounds Abdominal Exam Abdominal exam: Present soft, tenderness (Diffuse, no rebound) and normal bowel sounds Extremities Exam Extremities exam: Present other (Right foot in splint with Vinnie wrap. Able to ambulate with splint; bilateral hip TTP) Back Exam Back exam: Present normal inspection, full ROM and tenderness (The PCP to) Psychiatric Psychiatric exam: Present normal affect and normal mood Skin Skin exam: Present warm, dry, intact and normal color Course Quality Measures none Orders Category Date Time Status CT Screening NOW Care 09/06/24 12:17 Completed EKG (ED ONLY) *Do not use* NOW Care 09/06/24 12:05 Completed Insert IV NOW Care 09/06/24 12:20 Completed Splint / Immobilizer STAT Care 09/06/24 15:[address] abdomen pelvis w con Stat Exams 09/06/24 12:17 Completed EKG (ED Only) Stat Exams 09/06/24 12:05 Draft XR chest 2V Stat Exams 09/06/24 12:17 Completed XR hip BI w pelvis 2V Stat Exams 09/06/24 12:22 Completed BNP [B-Type Natriuretic Peptide] Stat Lab 09/06/24 12:28 Completed CBC Stat Lab 09/06/24 12:28 Completed CMP [Comprehensive Metabolic Panel] Stat Lab 09/06/24 12:28 Completed HCG,Qualitative Serum Stat Lab 09/06/24 12:28 Completed Lipase Stat Lab 09/06/24 12:28 Completed Troponin I Stat Lab 09/06/24 12:28 Completed HYDROcodone*/APAP 5/325 [[place] 5/325] Med 09/06/24 12:17 Discontinued 1 tab PO X1 ONE HYDROcodone*/APAP 5/325 [[place] 5/325] Med 09/06/24 14:44 Discontinued 1 tab PO X1 ONE Ketorolac Inj [Toradol Inj] Med 09/06/24 12:20 Discontinued 30 mg IM X1 ONE Potassium Chloride [K-Dur] Med 09/06/24 15:47 Discontinued 20 meq PO X1 ONE Sodium Chloride 0.9% 1000 ml [Ns] 1,000 ml Med 09/06/24 14:44 Discontinued IV 999 mls/hr Vital Signs Vital signs: Vital Signs Temperature 98.4 F 09/06/24 12:10 Pulse Rate 98 09/06/24 12:10 Respiratory Rate 18 09/06/24 12:10 Blood Pressure 137/81 H 09/06/24 12:10 Pulse Oximetry (%) 95 09/06/24 12:10 Oxygen Delivery Method Room Air 09/06/24 12:10 Procedures -ED EKG Interpretation #1: Date of EK09/06/24 Time of EK:15 Rate: 79 Interpretation: Interpreted by me EKG Impression: Normal sinus rhythm, No acute ST-T changes and No ectopy Splint Fabrication: Pre-Fabricated Type: Posterior Leg Reason for Splint: Pain Management Site condition: Pain Circulation Distal to Splint: Yes Movement Distal to Splint: Yes Senation Distal to Splint: Yes Tolerance: Tolerates Well Discharge Plan Plan Patient Disposition: HOME (Self Care) Prescriptions/Referrals Prescriptions/Med Rec: New ondansetron 4 mg tablet,disintegrating 4 mg PO Q8H PRN (Reason: nausea and vomiting) Qty: 10 0RF dicyclomine 10 mg capsule 10 mg PO TID Qty: 30 0RF meloxicam 7.5 mg tablet 7.5 mg PO QDAY Qty: 14 0RF No Action fluoxetine [Prozac] 20 MG capsule 60 mg PO QAM Qty: 0 ibuprofen 800 mg tablet 800 mg PO TID PRN (Reason: pain) Qty: 30 0RF lidocaine HCl [Lidocaine Viscous] 2 % solution 10 ml PO Q6HR PRN (Reason: pain ) Qty: 200 0RF quetiapine 300 mg tablet 300 mg PO QDAY Patient Comments: TAKE 2 TABLETS BY MOUTH EVERY NIGHT AT BEDTIME topiramate 100 mg Tablet 100 mg PO BID ibuprofen 800 mg tablet 800 mg PO TID PRN (Reason: pain) Qty: 30 0RF hydrocodone-acetaminophen 5-325 mg tablet 1 tab PO BID MDD 10 PRN (Reason: pain) Qty: 4 0RF tramadol-acetaminophen [Ultracet] 37.5-325 mg tablet 1 tab PO TID PRN (Reason: pain) Qty: 30 0RF acetaminophen 500 mg capsule 1,000 mg PO Q8HR PRN (Reason: pain) Qty: 60 0RF doxycycline hyclate 100 mg tablet 100 mg PO BID Qty: 14 0RF naproxen [Naprosyn] 500 mg tablet 500 mg PO Q12H PRN (Reason: pain) Qty: 30 0RF cyclobenzaprine 10 mg tablet 10 mg PO TID PRN (Reason: muscle spasm) Qty: 20 0RF albuterol sulfate [Ventolin HFA] 90 mcg/actuation HFA aerosol inhaler 2 puff inhalation Q6H PRN (Reason: shortness of breath or wheezing) Qty: 8.5 0RF promethazine-DM 6.25-15 mg/5 mL syrup 5 ml PO Q6H PRN (Reason: cough) Qty: 473 0RF albuterol sulfate 90 mcg/actuation HFA aerosol inhaler 2 inh inhalation Q4H PRN (Reason: shortness of breath or wheezing) Qty: 8.5 0RF ibuprofen 800 mg tablet 800 mg PO Q6H PRN (Reason: pain) Qty: 10 0RF acetaminophen 500 mg tablet 1,000 mg PO Q6H PRN (Reason: pain) Qty: 20 0RF sennosides-docusate sodium [Senokot-S] 8.6-50 mg tablet 1 tab-cap PO QDAY Qty: 10 0RF magnesium citrate Solution 300 ml PO QDAY PRN (Reason: constipation) Qty: 296 0RF quetiapine [Seroquel] 300 mg tablet 300 mg PO .qhs Qty: 30 0RF quetiapine [Seroquel] 300 mg tablet 300 mg PO QDAY Qty: 30 0RF permethrin 5 % cream 1 applic topical Q14D Qty: 60 0RF Rx Instructions: apply second treatment 14 days after first treatment if live lice remain azithromycin 500 mg tablet See Rx Instructions .ROUTE .COMPLEX Qty: 6 0RF Rx Instructions: take 500 mg today (day 1), then 250 mg for 4 days (days 2-5) benzonatate 100 mg capsule 100 mg PO BID PRN (Reason: cough) Qty: 20 0RF ibuprofen 800 mg tablet 800 mg PO Q8H PRN (Reason: pain) Qty: 30 0RF hydrocodone-acetaminophen 5-325 mg tablet 1 tab PO Q8H MDD 10 PRN (Reason: pain) Qty: 10 0RF Referrals: No Primary/Family,Physician [Primary Care Provider] - In 1 week Problem List Clinical Impression: Abdominal pain, Acute hypokalemia, Vomiting, Acute hip pain, Fracture of right toe Patient/Caregiver Discharge Instructions Education Materials: Abdominal Pain, ED Hypokalemia Print Language: Kyr[place]z Stand Alone Forms: [facility]ola Award Info., Patient Portal Info Letter PA/CRIMPER [employer]SEMBLER Supervising Physician PA/CRIMPER ASSEMBLER Supervising Physician: Dr. boggs [facility] Narrative MDM hospital course: Remained stable throughout her stay requesting multiple rounds of pain medicine and IV fluids. Once given results of CT normal patient trying to pull on her own IV. Asked for splint Vinnie wrap to be changed. Patient's low potassium was corrected given medications for home advised follow-up with PCP return to ER symptoms worsen Clinical Information Provided by patient and EMS [facility] Meds/Rx Considered, not Ordered Describe details: Narcotics were considered however given drug history more likely to cause harm than benefit Labs/Rad/Tests considered, not Ordered Describe details: CT of chest was also considered however unlikely to change the course of treatment today Chronic Illness/Social Conditions which may negatively complicate care or outcome(s)-explain: Mental health, Hx of noncompliance and other (Chronic back pain, fracture to right toe) Lab Interpretation Labs: interpreted by [place] Lab(s) interpretation(s): Normal CBC, CMP with hypokalemia which was corrected, UA within normal limits, Imaging Provider imaging interpretation(s): CT scan of abdomen no surgical findings, normal x-ray of hips Medication Administration(s) Medication Administration History Discontinued Medications Hydrocodone Bitart/Acetaminophen (Hydrocodone/Apap 5/325 Tablet) 1 tab PO X1 ONE Stop: 09/06/24 12:18 Last Admin: 09/06/24 12:31 Dose: 1 tab Documented By: EF Hydrocodone Bitart/Acetaminophen (Hydrocodone/Apap 5/325 Tablet) 1 tab PO X1 ONE Stop: 09/06/24 14:45 Last Admin: 09/06/24 15:15 Dose: 1 tab Documented By: EF Sodium Chloride (Ns) 1,000 mls @ 999 mls/hr IV .Q1H1M ONE Stop: 09/06/24 15:44 Last Infusion: 09/06/24 16:15 Dose: Infused Documented By: Admin: 09/06/24 15:15 Dose: 999 mls/hr Documented By: EF Ketorolac Tromethamine (Ketorolac Inj 60 Mg/2 Ml Vial) 30 mg IM X1 ONE Stop: 09/06/24 12:21 Last Admin: 09/06/24 12:31 Dose: 30 mg Documented By: EF Potassium Chloride (Potassium Chloride 20 Meq Tabcr) 20 meq PO X1 ONE Stop: 09/06/24 15:48 Last Admin: 09/06/24 16:00 Dose: 20 meq Documented By: EF Diagnosis Differential dx and/or dx ruled out: Abdominal pain, back pain, viral gastroenteritis Most likely dx, and/or detailed dx discussion: Chronic back pain Drug abuse Abdominal pain Hypokalemia Vomiting Dispositon Disposition: Discharge Home
--- NOTE | 2024-09-06 12:17 | XR_ITS ---
Examination: AP lateral chest 2 views TECHNIQUE: AP lateral sitting chest 2 views Date and time: September 06, 2024 1412 hours INDICATIONS: Shortness of breath today. FINDINGS: Normal heart size. Lungs are clear. The osseous structures are intact IMPRESSION: No active disease
--- NOTE | 2024-09-06 12:17 | XR_ITS ---
Examination: CT abdomen with intravenous contrast CT pelvis with intravenous contrast 2-D coronal reconstructions 2-D sagittal reconstructions Date and time of exam:September 06, 2024 1450 hours Comparison August 17, 2022 INDICATIONS: Left lower abdominal pain nausea vomiting diarrhea beginning today. CTDI: vol (mGy) 8.67 DLP: (mGycm) 548 Technique: Multiple axial sections of the abdomen and pelvis have been obtained. 64 slice high-resolution scanner used. 3 mm axial sections have been obtained, post intravenous injection 60 cc [id number] 2-D sagittal, coronal reconstructions obtained. Low dose protocols were performed. One or more of the following dose reduction techniques were used; automated exposure control, adjustment of the mA and/or KV according to patient size, use of iterative reconstruction technique. Findings: No focal liver or splenic lesions Patient motion degrades imaging quality of the gallbladder No pancreatic or adrenal mass No renal or ureteral calculi, no hydronephrosis Tiny fat-containing umbilical hernia Normal appendix No diverticulitis Anteverted uterus Intact urinary bladder Mild diffuse lumbar disc narrowing IMPRESSION: No renal or ureteral calculi, no hydronephrosis Normal appendix No bowel obstruction diverticulitis or free air
--- NOTE | 2024-09-06 12:22 | XR_ITS ---
Examination: Bilateral hips, AP pelvis, 5 views Technique: AP, lateral views both hips, AP pelvis, 5 views Exam date and time: September 06, 2024 1410 hours INDICATIONS: Bilateral hip pain beginning one year ago. FINDINGS: No right or left hip fracture or dislocation Minimal narrowing left hip joint No significant arthritic change IMPRESSION: No hip fractures or significant hip arthritic change
[2024-09-06] MEDS: HYDROcodone/APAP 5/325 TABLET 1 TAB PO ×2 (12:31→15:15)
[2024-09-06] MEDS: KETOROLAC INJ 60 MG/2 ML VIAL 30 MG IM (12:31)
[2024-09-06 12:57] LABS: Basophils # (Auto) 0.1 Thou/mm3 (0.0-0.2); Basophils % (Auto) 1 % (0-2.5); Eosinophils # (Auto) 0.1 Thou/mm3 (0.0-0.5); Eosinophils % (Auto) 1 % (0-10); Hematocrit 38.1 % (36.0-46.0); Hemoglobin 13.1 g/dL (12.0-16.0); Immature Granulocytes % (Auto) 0 % (0-0); Immature Granulocytes Auto 0.04 Thou/mm3 (0.00-0.00); Lymphocytes # (Auto) 1.4 Thou/mm3 (1.0-4.8); Lymphocytes % (Auto) 11 % (10-50); Mean Corpuscular HGB Conc 34.4 g/dl (31.0-37.0); Mean Corpuscular Hemoglobin 29.9 pg (25.0-35.0); Mean Corpuscular Volume 87 fL (80-100); Monocytes % (Auto) 8 % (0-12); Neutrophils # (Auto) 10.3 Thou/mm3 (1.8-7.7); Neutrophils % (Auto) 80 % (37-80); Nucleated Red Blood Cell % 0 /100 WBC (0); Platelet Count 392 Thou/mm3 (140-440); RDW Standard Deviation 51.1 fL (36.4-46.3); Red Blood Count 4.38 Miln/mm3 (4.00-5.20); White Blood Count 12.8 Thou/mm3 (3.6-11.0)
[2024-09-06 13:22] LABS: Alanine Aminotransferase 20 U/L (10-49); Albumin/Globulin Ratio 1.8 (1.2-2.2); Alkaline Phosphatase 51 U/L (46-116); Anion Gap 9 (7-16); BUN/Creatinine Ratio 7 Ratio (12-20); Bilirubin,Total 0.3 mg/dL (0.3-1.2); Blood Urea Nitrogen 5 mg/dL (9-23); Calcium 10.5 mg/dL (8.3-10.6); Calcium (Corrected) 10.5 mg/dL (8.5-10.1); Carbon Dioxide 26.1 mMol/L (20.0-31.0); Chloride 105 mMol/L (98-107); Creatinine (Component) 0.7 mg/dL (0.6-1.3); Estimated Creatinine Clearance 124.6 mL/min (>60); Globulin 2.2 gm/dL (2.3-3.5); Glucose 99 mg/dL (74-106); Lipase 25 U/L (12-53); Osmolality,Calculated 276 (275-295); Potassium 3.1 mMol/L (3.4-5.1); Sodium 140 mMol/L (136-145); Total Protein 6.2 gm/dL (5.7-8.2); Troponin I < 0.002 ng/mL (0.0-0.045); eGFR > 60 See Note
[2024-09-06 13:40] LABS: B-Type Natriuretic Peptide 40 pg/mL (0-100)
[2024-09-06 14:04] LABS: HCG,Qualitative Serum Negative
[2024-09-06] MEDS: SODIUM CHLORIDE 0.9% 1000 ML 1,000 ML 999 ML IV (15:15)
[2024-09-06] MEDS: POTASSIUM CHLORIDE 20 mEq TABCR PO (16:00)
[2024-09-06 16:04] VITALS: BP 108/73; PULSE 85; RESP 15; TEMP 36.6; O2SAT 99
== END 2024-09-06 16:18 | disposition home or self-care (01) ==
PROVIDERS: Physician Assistant; Emergency Provider Family Medicine
DX: E87.6 Hypokalemia (principal); S92.911A Unspecified fracture of right toe(s), initial encounter for closed fracture; X58.XXXA Exposure to other specified factors, initial encounter; M25.552 Pain in left hip; M25.551 Pain in right hip; R11.2 Nausea with vomiting, unspecified; R06.02 Shortness of breath; R10.32 Left lower quadrant pain
CPT/HCPCS: 29515; 36415; 71046; 73521; 74177; 80053; 81001; 83690; 83880; 84484; 84703; 85025; 93005; 96360; 96372; 99285; A4649; J1885; J7030; Q9967; A9270

== ENCOUNTER 2024-09-12 16:45 | Emergency (ER) | payer MEDICAID, SELFPAY ==
[2024-09-12 16:47] VITALS: PULSE 116; RESP 18; O2SAT 99; BMI 28.1
[2024-09-12 16:54] VITALS: BP 102/74; PULSE 92; RESP 16; TEMP 37.3; O2SAT 96
--- NOTE | 2024-09-12 17:03 | EDNOTE_ITS ---
Nausea/Vomit./Diarrhea-RME/HPI General Chief complaint: Nausea/Vomiting/Diarrhea Stated complaint: NAUSEA VOMITING DIARRHEA Time Seen by Provider: 09/12/24 16:55 Source: patient Arrival date/time: 09/12/24 16:45 Mode of arrival: EMS Limitations: no limitations RME / HPI RME / HPI Narrative: 44-year-old female who states she is currently and is here today with a 2-day history of nausea, vomiting, diarrhea. She endorses abdominal cramping. She has mild pelvic discomfort. She has no vaginal discharge or or bleeding. She has no dysuria. She denies any fevers or chills. Denies any sick contacts. No recent surgeries. Past medical history includes a mental health disorder she states she has had 5 C-sections. No other surgeries. She has no other complaints or concerns. Related Data Home Medications ?Medication ?Instructions ?Recorded ?Confirmed fluoxetine 20 mg capsule (Prozac) 60 mg PO QAM #0 caps 11/04/16 07/04/21 quetiapine 300 mg tablet 300 mg PO QDAY 07/04/2109/19 topiramate 100 mg tablet 100 mg PO BID 07/04/2107/04 Previous Rx's ?Medication ?Instructions ?Recorded hydrocodone 5 mg-acetaminophen 325 1 tab PO BID PRN pa in #4 tabs 07/04/21 mg tablet ibuprofen 800 mg tablet 800 mg PO TID PRN pain #30 t abs 07/04/21 ibuprofen 800 mg tablet 800 mg PO TID PRN pain #30 t abs 07/21/21 lidocaine HCl 2 % mucosal solution 10 ml PO Q6HR PRN p ain #200 mL 07/21/21 (Lidocaine Viscous) tramadol 37.5 mg-acetaminophen 325 1 tab PO TID PRN pa in #30 tabs 07/28/21 mg tablet (Ultracet) acetaminophen 500 mg capsule 1,000 mg (2 x 500 mg) PO Q8HR PRN 08/20/21 pain #60 caps doxycycline hyclate 100 mg tablet 100 mg PO BID #14 ta bs 08/20/21 cyclobenzaprine 10 mg tablet 10 mg PO TID PRN muscle s pasm #20 09/28/21 tabs naproxen 500 mg tablet (Naprosyn) 500 mg PO Q12H PRN p ain #30 tabs 09/28/21 albuterol sulfate 90 mcg/actuation 2 puff inhalation Q 6H PRN 11/13/21 aerosol inhaler (Ventolin HFA) shortness of breath or wheezing #8.5 grams promethazine-DM 6.25 mg-15 mg/5 mL 5 ml PO Q6H PRN cou gh #473 mL 11/13/21 oral syrup azithromycin 500 mg tablet See Rx Instructions PO .COM PLEX #6 12/05/21 tabs benzonatate 100 mg capsule 100 mg PO BID PRN cough #20 caps 12/05/21 albuterol sulfate 90 mcg/actuation 2 inh inhalation Q4 H PRN shortness 12/16/21 aerosol inhaler of breath or wheezing #8.5 g shawanda acetaminophen 500 mg tablet 1,000 mg (2 x 500 mg) PO Q 6H PRN 05/25/22 pain #20 tabs ibuprofen 800 mg tablet 800 mg PO Q6H PRN pain #10 t abs 05/25/22 sennosides 8.6 mg-docusate sodium 1 tab-cap PO QDAY #1 0 tabs 05/25/22 50 mg tablet (Senokot-S) hydrocodone 5 mg-acetaminophen 325 1 tab PO Q8H PRN pa in #10 tabs 06/01/22 mg tablet ibuprofen 800 mg tablet 800 mg PO Q8H PRN pain #30 t abs 06/01/22 magnesium citrate 300 ml PO QDAY PRN constipat ion 12/18/22 #296 mL quetiapine 300 mg tablet (Seroquel) 300 mg PO .qhs #30 tabs 04/11/24 quetiapine 300 mg tablet (Seroquel) 300 mg PO QDAY #30 tabs 04/11/24 permethrin 5 % topical cream 1 applic topical Q14D 2 d oses #60 07/11/24 grams dicyclomine 10 mg capsule 10 mg PO TID #30 caps meloxicam 7.5 mg tablet 7.5 mg PO QDAY #14 tabs 12/23 ondansetron 4 mg disintegrating 4 mg PO Q8H PRN nausea and 09/06/24 tablet vomiting #10 tabs cephalexin 500 mg capsule 500 mg PO Q8H 7 days #21 cap s 09/12/24 ondansetron 4 mg disintegrating 4 mg PO TID 3 days #9 tabs 09/12/24 tablet Allergies Allergy/AdvReac Type Severity Reaction Status Date / Time amoxicillin Allergy Severe RASH TO Verified 09/06/24 12:15 ARMPITS Review of Systems Review of Systems Systems Reviewed: All systems reviewed, normal except as documented ED Exam General Limitations: Present no limitations General appearance: Present alert and in no apparent distress Head Head exam: Present atraumatic Eye Eye exam: Present normal appearance, PERRL and EOMI ENT ENT exam: Present normal exam, normal oropharynx and mucous membranes moist Neck Neck exam: Present normal inspection, full ROM and trachea midline Chest Chest inspection: Present normal inspection and symmetric chest wall rise Respiratory Respiratory exam: Present normal lung sounds bilaterally Cardiovascular Cardiovascular exam: Present regular rate, normal rhythm and normal heart sounds Abdominal Exam Abdominal exam: Present soft and normal bowel sounds Extremities Exam Extremities exam: Present normal inspection and full ROM Back Exam Back exam: Present normal inspection and full ROM Neurological Exam Neurological exam: Present alert, oriented X3 and CN II-XII intact Psychiatric Psychiatric exam: Present normal affect and normal mood Skin Skin exam: Present warm, dry, intact and normal color Course Quality Measures none Orders Category Date Time Status In and Out Catheter X1 Care 09/12/24 17:23 Completed CBC Stat Lab 09/12/24 17:11 Completed CMP [Comprehensive Metabolic Panel] Stat Lab 09/12/24 17:11 Completed Drug Screen,Urine Stat Lab 09/12/24 17:31 Completed HCG,Qualitative Serum Stat Lab 09/12/24 17:11 Completed Lipase Stat Lab 09/12/24 17:11 Completed UA, C/S IF [Urinalysis, C/S if Indicated] Stat Lab 09/12/24 17:31 Completed Urine Culture Stat Lab 09/12/24 17:31 Received Acetaminophen Tab [Tylenol ES Tab] Med 09/12/24 18:26 Discontinued 1,000 mg PO X1 ONE Ondansetron Inj [Zofran Inj] Med 09/12/24 17:02 Discontinued 4 mg IVP X1 ONE Sodium Chloride 0.9% 1000 ml [Ns] 1,000 ml Med 09/12/24 17:02 Discontinued IV 999 mls/hr cephALEXin [Keflex] Med 09/12/24 18:03 Discontinued 500 mg PO X1 ONE Vital Signs Vital signs: Vital Signs Temperature 99.1 F 09/12/24 16:54 Pulse Rate 92 09/12/24 16:54 Respiratory Rate 16 09/12/24 16:54 Blood Pressure 102/74 09/12/24 16:54 Pulse Oximetry (%) 96 09/12/24 16:54 Oxygen Delivery Method Room Air 09/12/24 16:54 Nausea/Vomiting/Diarrhea MDM Narrative MDM Narrative:: Patient is a 44-year-old female who is brought in by EMS with reported , abdominal pain, nausea, vomiting. Vital signs are stable during transport. Patient states she is approximately 2 to 3 months . When patient arrived, was discovered that she had a recent hCG screen that was negative. This was verified again here today. Her serum results are essentially unremarkable. Urine drug screen is positive for methamphetamine. UA reveals UTI. Patient was given dose of Keflex. She has had no episodes of emesis during the ER course. Patient will be discharged in the ER with a prescription of Keflex. She will be given Zofran for nausea. She is encouraged to discontinue methamphetamine. She may return as needed for worsening emergent changes. Patient data External records reviewed:: [facility] previous records Clinical information provided by:: patient and EMS Social determinants that could affect healthcare access:: substance use Patient has the following chronic illnesses:: n/a How is presenting disease/condition affected by chronic disease/condition?: no chronic disease Evaluation data The following diagnostics were reviewed and interpreted by me:: lab results Lab and/or radiology exams considered but not ordered:: n/a Interpretation Summary: UTI, methamphetamine abuse Medications / Prescriptions Medications / Prescriptions considered but not ordered:: n/a Medication administrations:: Medication Administration History Discontinued Medications Acetaminophen (Acetaminophen 500 Mg Tablet) 1,000 mg PO X1 ONE Stop: 09/12/24 18:27 Last Admin: 09/12/24 18:32 Dose: 1,000 mg Documented By: BELINDA Cephalexin HCl (Cephalexin 250 Mg Capsule) 500 mg PO X1 ONE Stop: 09/12/24 18:04 Last Admin: 09/12/24 18:12 Dose: 500 mg Documented By: BELINDA Sodium Chloride (Ns) 1,000 mls @ 999 mls/hr IV .Q1H1M ONE Stop: 09/12/24 18:02 Last Admin: 09/12/24 17:14 Dose: 999 mls/hr Documented By: BELINDA Ondansetron HCl (Ondansetron Inj 2 Mg/Ml Inj 2 Ml) 4 mg IVP X1 ONE; Protocol Stop: 09/12/24 17:03 Last Admin: 09/12/24 17:14 Dose: 4 mg Documented By: SM see above Consultations Consultation(s) initiated? (list below): No Diagnosis Nausea Differential Diagnosis: gastroenteritis, drug-induced nausea and vomiting and dehydration Most likely diagnosis given after review of the tests above:: UTI, methamphetamine abuse Admission Indicated Admission indicated?: not indicated Admission Request Was there a request for admission?: No Disposition Plan Disposition Plan: Discharge Discharge Attestation Discharge Attestation: The patient and all family members were given an opportunity to ask questions and understood the discharge instructions. Discharge instructions specifically effects, indications for sooner follow up or return to the emergency department, and the expected course of current diagnosis. Patient condition: Stable Discharge Plan Plan Patient Disposition: HOME (Self Care) Patient condition on transfer: Stable Prescriptions/Referrals Prescriptions/Med Rec: New cephalexin 500 mg capsule 500 mg PO Q8H 7 Days Qty: 21 0RF ondansetron 4 mg tablet,disintegrating 4 mg PO TID 3 Days Qty: 9 0RF No Action fluoxetine [Prozac] 20 MG capsule 60 mg PO QAM Qty: 0 ibuprofen 800 mg tablet 800 mg PO TID PRN (Reason: pain) Qty: 30 0RF lidocaine HCl [Lidocaine Viscous] 2 % solution 10 ml PO Q6HR PRN (Reason: pain ) Qty: 200 0RF quetiapine 300 mg tablet 300 mg PO QDAY Patient Comments: TAKE 2 TABLETS BY MOUTH EVERY NIGHT AT BEDTIME topiramate 100 mg Tablet 100 mg PO BID ibuprofen 800 mg tablet 800 mg PO TID PRN (Reason: pain) Qty: 30 0RF hydrocodone-acetaminophen 5-325 mg tablet 1 tab PO BID MDD 10 PRN (Reason: pain) Qty: 4 0RF tramadol-acetaminophen [Ultracet] 37.5-325 mg tablet 1 tab PO TID PRN (Reason: pain) Qty: 30 0RF acetaminophen 500 mg capsule 1,000 mg PO Q8HR PRN (Reason: pain) Qty: 60 0RF doxycycline hyclate 100 mg tablet 100 mg PO BID Qty: 14 0RF naproxen [Naprosyn] 500 mg tablet 500 mg PO Q12H PRN (Reason: pain) Qty: 30 0RF cyclobenzaprine 10 mg tablet 10 mg PO TID PRN (Reason: muscle spasm) Qty: 20 0RF albuterol sulfate [Ventolin HFA] 90 mcg/actuation HFA aerosol inhaler 2 puff inhalation Q6H PRN (Reason: shortness of breath or wheezing) Qty: 8.5 0RF promethazine-DM 6.25-15 mg/5 mL syrup 5 ml PO Q6H PRN (Reason: cough) Qty: 473 0RF albuterol sulfate 90 mcg/actuation HFA aerosol inhaler 2 inh inhalation Q4H PRN (Reason: shortness of breath or wheezing) Qty: 8.5 0RF ibuprofen 800 mg tablet 800 mg PO Q6H PRN (Reason: pain) Qty: 10 0RF acetaminophen 500 mg tablet 1,000 mg PO Q6H PRN (Reason: pain) Qty: 20 0RF sennosides-docusate sodium [Senokot-S] 8.6-50 mg tablet 1 tab-cap PO QDAY Qty: 10 0RF magnesium citrate Solution 300 ml PO QDAY PRN (Reason: constipation) Qty: 296 0RF quetiapine [Seroquel] 300 mg tablet 300 mg PO .qhs Qty: 30 0RF quetiapine [Seroquel] 300 mg tablet 300 mg PO QDAY Qty: 30 0RF permethrin 5 % cream 1 applic topical Q14D Qty: 60 0RF Rx Instructions: apply second treatment 14 days after first treatment if live lice remain ondansetron 4 mg tablet,disintegrating 4 mg PO Q8H PRN (Reason: nausea and vomiting) Qty: 10 0RF dicyclomine 10 mg capsule 10 mg PO TID Qty: 30 0RF meloxicam 7.5 mg tablet 7.5 mg PO QDAY Qty: 14 0RF azithromycin 500 mg tablet See Rx Instructions .ROUTE .COMPLEX Qty: 6 0RF Rx Instructions: take 500 mg today (day 1), then 250 mg for 4 days (days 2-5) benzonatate 100 mg capsule 100 mg PO BID PRN (Reason: cough) Qty: 20 0RF ibuprofen 800 mg tablet 800 mg PO Q8H PRN (Reason: pain) Qty: 30 0RF hydrocodone-acetaminophen 5-325 mg tablet 1 tab PO Q8H MDD 10 PRN (Reason: pain) Qty: 10 0RF Referrals: Avinash Patel MD [Primary Care Provider] - In 1 week Problem List Clinical Impression: UTI (urinary tract infection), Methamphetamine abuse Patient/Caregiver Discharge Instructions Education Materials: Addiction Ask These Questions, Understanding Methamphetamine ..., ED CYSTITIS Female Adult Additional Instructions: Increase oral hydration use the provided medications as prescribed. Discontinue methamphetamine abuse. Follow-up with your primary clinic as soon as possible. Return here for any worsening or emergent changes. Print Language: Qatari Stand Alone Forms: [employer] Award Info., Patient Portal Info Letter
[2024-09-12] MEDS: ONDANSETRON INJ 2 MG/ML INJ 2 ML 4 MG IVP (17:14)
[2024-09-12] MEDS: SODIUM CHLORIDE 0.9% 1000 ML 1,000 ML 999 ML IV (17:14)
[2024-09-12 17:17] LABS: Basophils % (Auto) 0 % (0-2.5); Eosinophils # (Auto) 0.1 Thou/mm3 (0.0-0.5); Eosinophils % (Auto) 1 % (0-10); Hematocrit 40.5 % (36.0-46.0); Hemoglobin 13.7 g/dL (12.0-16.0); Immature Granulocytes % (Auto) 1 % (0-0); Immature Granulocytes Auto 0.05 Thou/mm3 (0.00-0.00); Lymphocytes # (Auto) 1.7 Thou/mm3 (1.0-4.8); Lymphocytes % (Auto) 18 % (10-50); Mean Corpuscular HGB Conc 33.8 g/dl (31.0-37.0); Mean Corpuscular Volume 89 fL (80-100); Monocytes # (Auto) 0.5 Thou/mm3 (0.0-0.8); Monocytes % (Auto) 5 % (0-12); Neutrophils # (Auto) 7.3 Thou/mm3 (1.8-7.7); Neutrophils % (Auto) 75 % (37-80); Nucleated Red Blood Cell % 0 /100 WBC (0); Platelet Count 383 Thou/mm3 (140-440); RDW Standard Deviation 49.6 fL (36.4-46.3); Red Blood Count 4.57 Miln/mm3 (4.00-5.20); White Blood Count 9.7 Thou/mm3 (3.6-11.0)
[2024-09-12 17:34] LABS: Alanine Aminotransferase 32 U/L (10-49); Albumin, Serum 3.9 gm/dL (3.5-5.0); Albumin/Globulin Ratio 1.9 (1.2-2.2); Alkaline Phosphatase 51 U/L (46-116); Anion Gap 12 (7-16); Aspartate Amino Transferase 28 U/L (0-34); BUN/Creatinine Ratio 16 Ratio (12-20); Bilirubin,Total 0.3 mg/dL (0.3-1.2); Blood Urea Nitrogen 13 mg/dL (9-23); Calcium 10.7 mg/dL (8.3-10.6); Calcium (Corrected) 10.8 mg/dL (8.5-10.1); Carbon Dioxide 15.9 mMol/L (20.0-31.0); Chloride 107 mMol/L (98-107); Creatinine (Component) 0.8 mg/dL (0.6-1.3); Estimated Creatinine Clearance 97.6 mL/min (>60); Globulin 2.1 gm/dL (2.3-3.5); Glucose 94 mg/dL (74-106); Lipase 27 U/L (12-53); Osmolality,Calculated 270 (275-295); Potassium 3.5 mMol/L (3.4-5.1); Sodium 135 mMol/L (136-145); eGFR > 60 See Note
[2024-09-12 17:35] LABS: Collection Type, Urine Clean Catch
[2024-09-12 17:37] LABS: HCG,Qualitative Serum Negative
[2024-09-12 17:47] LABS: Bilirubin,Urine 1+ (Negative); Blood,Urine Trace (Negative); Clarity,Urine Hazy (Clear/Hazy); Color,Urine Yellow (Lt Yel-Yel); Culture Indicated,Urine Yes; Glucose, Urine Negative (Negative); Granular Casts,Urine 3 /hpf (0-1); Ketones,Urine 2+ (Negative); Leukocyte Esterase,Urine Positive (Negative); Nitrite,Urine Negative (Negative); Protein,Urine 1+ (Neg - Trace); RBC,Urine 10 /hpf (0-3); Squamous Epithelial Cell,Urine 1 /hpf (0-5); Urobilinogen,Urine Negative mg/dL (0.0-1.0); WBC,Urine 112 /hpf (0-5)
[2024-09-12] MEDS: cephALEXin 250 MG CAPSULE 500 MG PO (18:12)
[2024-09-12 18:22] VITALS: BP 122/68; PULSE 102; RESP 20; TEMP 37; O2SAT 93
[2024-09-12] MEDS: ACETAMINOPHEN 500 MG TABLET 1000 MG PO (18:32)
[2024-09-12 18:36] LABS: Amphetamine/Methamp Scrn,U Positive (Negative); Barbiturate Screen,Urine Negative (Negative); Benzodiazepines Screen,Urine Negative (Negative); Benzoylecgonine Screen, Ur Negative (Negative); Fentanyl Screen,Urine Negative (Negative); Opiate Screen,Urine Negative (Negative); THC Screen,Urine Negative (Negative)
--- NOTE | 2024-09-12 19:00 | PC.NURSE ---
RN ASSISTED PT TO AMBULATE TO THE RESTROOM. PT USED CRUTCHES TO WALK BECAUSE BROKE RIGHT FOOT. PT DENIES SOB
--- NOTE | 2024-09-12 19:10 | PC.CC ---
ASW arranged a transportation for the pt via [employer] to home. Pt is ready and will be picked up at the ER dept.
== END 2024-09-12 19:14 | disposition home or self-care (01) ==
PROVIDERS: Physician Assistant Medical; Emergency Provider Family Medicine; PCP Family Medicine
DX: N39.0 Urinary tract infection, site not specified (principal); F15.10 Other stimulant abuse, uncomplicated
CPT/HCPCS: 51701; 36415; 80053; 80307; 81001; 83690; 84703; 85025; 87086; 96361; 96374; 99284; J2405; J7030; A9270

== ENCOUNTER 2024-09-16 09:27 | Emergency (ER) | payer MEDICAID, SELFPAY ==
--- NOTE | 2024-09-16 09:35 | PD.EDNV ---
Nausea/Vomit./Diarrhea-RME/HPI General Chief complaint: Nausea/Vomiting/Diarrhea Stated complaint: N/V/D Arrival date/time: 09/16/24 09:27 RME / HPI RME / HPI Narrative: DR. LEPE MAIN ED EVALUATION: This section includes all my notes and documentations, including HPI, PE, and ED course.? Ethan Lepe MD HPI: 44 year old female with past medical history significant for schizophrenia and fibromyalgia here with about 5 days of upper abdominal pain and occasional nausea and vomiting. No fever. Normal oral intake. No urinary symptoms. No other complaints. ROS: All negative except as documented in HPI. Physical Exam: General:? Alert and oriented.? No acute distress when remaining still.? Eyes:? Conjunctivae and lids clear. ENT:? No nasal congestion.? ? Neck:? Supple. Heart:? RRR. Lungs:? No respiratory distress.? Good air movement.? No rhonchi, wheezing, rales.? Abdomen:? Soft with epigastric tenderness Skin:? Warm and dry.? Neuro:? Alert and oriented X 3.? I reviewed all diagnostic test results. My review of the chest/abdomen/pelvis CT report is?no acute findings. My review of the gall US report is NAD. Blood tests unremarkable. At this point, diagnoses include peptic ulcer disease. Treatment here included IV fluid, Zofran, Toradol, morphine, famotidine, and Protonix. Significant improvement noted. Recommended outpatient management and more outpatient workup. Based on my best medical judgment, made decision no further evaluation or treatment indicated at this time.? Patient understands and agrees to the discharge instructions customized and printed, see below. Discharge instructions from Dr. Lepe: ?After evaluation, your symptoms are due to stomach ulcer (see attached handout).? ?To help heal the ulcer, take Omeprazole 40 mg every morning and Famotidine 40 mg at bedtime for a month. ?Zofran for nausea/vomiting.? Clear liquid diet for 24 hours.? Then slowly advance diet as tolerated. ?Avoid food and beverages that can trigger and worsen ulcers.? See attached handout. --Tylenol with codeine for severe pain. ?See a private doctor on 09/17/2024 for recheck and further care. Ask to review all test results and official radiology reports, to make sure you receive all necessary follow-ups and monitoring. To make sure there is no serious intra-abdominal condition, ask for help with more investigation not available here in the ER.? Such as EGD or scoping the stomach, colonoscopy or scoping the colon, and referral to see account executive key accounts. ?Seek immediate medical care with worsening or with any concerns. Ethan Lepe MD Related Data Home Medications ?Medication ?Instructions ?Recorded ?Confirmed fluoxetine 20 mg capsule (Prozac) 60 mg PO QAM #0 caps 11/04/16 07/04/21 quetiapine 300 mg tablet 300 mg PO QDAY 07/04/21 07/04/21 topiramate 100 mg tablet 100 mg PO BID 07/04/21 07/04/21 Previous Rx's ?Medication ?Instructions ?Recorded hydrocodone 5 mg-acetaminophen 325 1 tab PO BID PRN pain #4 tabs 07/04/21 mg tablet ibuprofen 800 mg tablet 800 mg PO TID PRN pain #30 tabs 07/04/21 ibuprofen 800 mg tablet 800 mg PO TID PRN pain #30 tabs 07/21/21 lidocaine HCl 2 % mucosal solution 10 ml PO Q6HR PRN pain #200 mL 07/21/21 (Lidocaine Viscous) tramadol 37.5 mg-acetaminophen 325 1 tab PO TID PRN pain #30 tabs 07/28/21 mg tablet (Ultracet) acetaminophen 500 mg capsule 1,000 mg (2 x 500 mg) PO Q8HR PRN 08/20/21 pain #60 caps doxycycline hyclate 100 mg tablet 100 mg PO BID #14 tabs 08/20/21 cyclobenzaprine 10 mg tablet 10 mg PO TID PRN muscle spasm #20 09/28/21 tabs naproxen 500 mg tablet (Naprosyn) 500 mg PO Q12H PRN pain #30 tabs 09/28/21 albuterol sulfate 90 mcg/actuation 2 puff inhalation Q6H PRN 11/13/21 aerosol inhaler (Ventolin HFA) shortness of breath or wheezing #8.5 grams promethazine-DM 6.25 mg-15 mg/5 mL 5 ml PO Q6H PRN cough #473 mL 11/13/21 oral syrup azithromycin 500 mg tablet See Rx Instructions PO .COMPLEX #6 12/05/21 tabs benzonatate 100 mg capsule 100 mg PO BID PRN cough #20 caps 12/05/21 albuterol sulfate 90 mcg/actuation 2 inh inhalation Q4H PRN shortness 12/16/21 aerosol inhaler of breath or wheezing #8.5 grams acetaminophen 500 mg tablet 1,000 mg (2 x 500 mg) PO Q6H PRN 05/25/22 pain #20 tabs ibuprofen 800 mg tablet 800 mg PO Q6H PRN pain #10 tabs 05/25/22 sennosides 8.6 mg-docusate sodium 1 tab-cap PO QDAY #10 tabs 05/25/22 50 mg tablet (Senokot-S) hydrocodone 5 mg-acetaminophen 325 1 tab PO Q8H PRN pain #10 tabs 06/01/22 mg tablet ibuprofen 800 mg tablet 800 mg PO Q8H PRN pain #30 tabs 06/01/22 magnesium citrate 300 ml PO QDAY PRN constipation 12/18/22 #296 mL quetiapine 300 mg tablet (Seroquel) 300 mg PO .qhs #30 tabs 04/11/24 quetiapine 300 mg tablet (Seroquel) 300 mg PO QDAY #30 tabs 04/11/24 permethrin 5 % topical cream 1 applic topical Q14D 2 doses #60 07/11/24 grams dicyclomine 10 mg capsule 10 mg PO TID #30 caps 09/06/24 meloxicam 7.5 mg tablet 7.5 mg PO QDAY #14 tabs 09/06/24 ondansetron 4 mg disintegrating 4 mg PO Q8H PRN nausea and 09/06/24 tablet vomiting #10 tabs cephalexin 500 mg capsule 500 mg PO Q8H 7 days #21 caps 09/12/24 acetaminophen 300 mg-codeine 30 mg 2 tab PO Q8H PRN pain #20 tabs 09/16/24 tablet famotidine 40 mg tablet 40 mg PO .bedtime #30 tabs 09/16/24 omeprazole 40 mg capsule,delayed 40 mg PO QDAY #30 caps 09/16/24 release ondansetron 4 mg disintegrating 4 mg PO TID PRN nausea and 09/16/24 tablet vomiting 30 days #10 tabs Allergies Allergy/AdvReac Type Severity Reaction Status Date / Time amoxicillin Allergy Severe RASH TO Verified 09/06/24 12:15 ARMPITS Course Quality Measures none Orders Category Date Time Status Bedside COVID-19 Antigen Test NOW Care 09/16/24 09:43 Completed Bedside Influenza A&B Antigen Test NOW Care 09/16/24 09:43 Completed Saline [Insert IV] NOW Care 09/16/24 09:43 Completed Straight [In and Out Catheter] X1 Care 09/16/24 09:[address] chest abdomen pelvis wo Stat Exams 09/16/24 09:44 Completed US gall bladder Stat Exams 09/16/24 09:44 Completed Amylase Stat Lab 09/16/24 10:20 Completed Bilirubin,Direct Stat Lab 09/16/24 10:20 Completed CBC Stat Lab 09/16/24 10:20 Completed CMP [Comprehensive Metabolic Panel] Stat Lab 09/16/24 10:20 Completed HCG,Qualitative Serum Stat Lab 09/16/24 10:20 Completed Lipase Stat Lab 09/16/24 10:20 Completed Magnesium Stat Lab 09/16/24 10:20 Completed PT [Prothrombin Time with INR] Stat Lab 09/16/24 10:20 Completed PTT [Partial Thromboplastin Time] Stat Lab 09/16/24 10:20 Completed Famotidine Inj [Pepcid Inj] Med 09/16/24 12:21 Discontinued 20 mg IVP X1 ONE Ketorolac Inj [Toradol Inj] Med 09/16/24 09:43 Discontinued 30 mg IVP X1 ONE Morphine Inj Med 09/16/24 12:21 Discontinued 4 mg IVP X1 ONE Morphine Inj Med 09/16/24 09:43 Discontinued 6 mg IVP X1 ONE Ondansetron Inj [Zofran Inj] Med 09/16/24 09:43 Discontinued 4 mg IVP X1 ONE Pantoprazole Inj [Protonix Inj] Med 09/16/24 12:21 Discontinued 40 mg IVP X1 ONE Sodium Chloride 0.9% 1000 ml [Ns] 1,000 ml Med 09/16/24 09:43 Discontinued IV 999 mls/hr Vital Signs Vital signs: Vital Signs Temperature 97.6 F 09/16/24 09:41 Pulse Rate 85 09/16/24 09:41 Respiratory Rate 19 09/16/24 09:41 Blood Pressure 116/89 H 09/16/24 09:41 Pulse Oximetry (%) 99 09/16/24 09:41 Nausea/Vomiting/Diarrhea MDM Narrative MDM Narrative:: IAlma, am scribing for and in the presence of Dr. Lepe. Patient data External records reviewed:: [facility] previous records and EMS form Clinical information provided by:: patient and EMS Social determinants that could affect healthcare access:: none Patient has the following chronic illnesses:: Schizophrenia and fibromyalgia. Allergies to amoxicillin. How is presenting disease/condition affected by chronic disease/condition?: uneffected by Evaluation data The following diagnostics were reviewed and interpreted by me:: lab results and radiology exam(s) Lab and/or radiology exams considered but not ordered:: none Interpretation Summary: I reviewed all diagnostic test results. My review of the chest/abdomen/pelvis CT report is?no acute findings. My review of the gall US report is NAD. Blood tests unremarkable. Medications / Prescriptions Medications / Prescriptions considered but not ordered:: none Medication administrations:: Medication Administration History Discontinued Medications Famotidine (Famotidine Inj 10 Mg/Ml Vial 2 Ml) 20 mg IVP X1 ONE Stop: 09/16/24 12:22 Last Admin: 09/16/24 14:02 Dose: 20 mg Documented By: BELINDA Sodium Chloride (Ns) 1,000 mls @ 999 mls/hr IV .Q1H1M ONE Stop: 09/16/24 10:43 Last Infusion: 09/16/24 12:15 Dose: Infused Documented By: Admin: 09/16/24 11:10 Dose: 999 mls/hr Documented By: FENG Ketorolac Tromethamine (Ketorolac Inj 30 Mg/Ml Vial) 30 mg IVP X1 ONE Stop: 09/16/24 09:44 Last Admin: 09/16/24 11:10 Dose: 30 mg Documented By: FENG Morphine Sulfate (Morphine Sulf Inj 10 Mg/Ml Vial) 6 mg IVP X1 ONE Stop: 09/16/24 09:44 Last Admin: 09/16/24 11:11 Dose: 6 mg Documented By: FENG Morphine Sulfate (Morphine Sulf Inj 10 Mg/Ml Vial) 4 mg IVP X1 ONE Stop: 09/16/24 12:22 Last Admin: 09/16/24 14:02 Dose: 4 mg Documented By: BELINDA Ondansetron HCl (Ondansetron Inj 2 Mg/Ml Inj 2 Ml) 4 mg IVP X1 ONE; Protocol Stop: 09/16/24 09:44 Last Admin: 09/16/24 11:10 Dose: 4 mg Documented By: FENG Pantoprazole Sodium (Pantoprazole Inj 40 Mg Vial) 40 mg IVP X1 ONE Stop: 09/16/24 12:22 Last Admin: 09/16/24 13:59 Dose: 40 mg Documented By: BELINDA Treatment here included IV fluid, Zofran, Toradol, morphine, famotidine, and Protonix. Consultations Consultation(s) initiated? (list below): No Diagnosis Nausea Differential Diagnosis: traveler's diarrhea, gastroenteritis, clostridium difficile infection and dehydration Most likely diagnosis given after review of the tests above:: Peptic ulcer disease Admission Indicated Admission indicated?: not indicated Explain why admission is indicated or not indicated:: With significant improvement, there was no indication for admission. Admission Request Was there a request for admission?: No Disposition Plan Disposition Plan: Discharge Discharge Attestation Discharge Attestation: The patient and all family members were given an opportunity to ask questions and understood the discharge instructions. Discharge instructions specifically effects, indications for sooner follow up or return to the emergency department, and the expected course of current diagnosis. Patient condition: Stable Discharge Plan Plan Patient Disposition: HOME (Self Care) Prescriptions/Referrals Prescriptions/Med Rec: New famotidine 40 mg tablet 40 mg PO .bedtime Qty: 30 0RF acetaminophen-codeine 300-30 mg tablet 2 tab PO Q8H MDD 6 PRN (Reason: pain) Qty: 20 0RF omeprazole 40 mg capsule,delayed release(DR/EC) 40 mg PO QDAY Qty: 30 0RF ondansetron 4 mg tablet,disintegrating 4 mg PO TID PRN (Reason: nausea and vomiting) 30 Days Qty: 10 0RF No Action fluoxetine [Prozac] 20 MG capsule 60 mg PO QAM Qty: 0 ibuprofen 800 mg tablet 800 mg PO TID PRN (Reason: pain) Qty: 30 0RF lidocaine HCl [Lidocaine Viscous] 2 % solution 10 ml PO Q6HR PRN (Reason: pain ) Qty: 200 0RF quetiapine 300 mg tablet 300 mg PO QDAY Patient Comments: TAKE 2 TABLETS BY MOUTH EVERY NIGHT AT BEDTIME topiramate 100 mg Tablet 100 mg PO BID ibuprofen 800 mg tablet 800 mg PO TID PRN (Reason: pain) Qty: 30 0RF hydrocodone-acetaminophen 5-325 mg tablet 1 tab PO BID MDD 10 PRN (Reason: pain) Qty: 4 0RF tramadol-acetaminophen [Ultracet] 37.5-325 mg tablet 1 tab PO TID PRN (Reason: pain) Qty: 30 0RF acetaminophen 500 mg capsule 1,000 mg PO Q8HR PRN (Reason: pain) Qty: 60 0RF doxycycline hyclate 100 mg tablet 100 mg PO BID Qty: 14 0RF naproxen [Naprosyn] 500 mg tablet 500 mg PO Q12H PRN (Reason: pain) Qty: 30 0RF cyclobenzaprine 10 mg tablet 10 mg PO TID PRN (Reason: muscle spasm) Qty: 20 0RF albuterol sulfate [Ventolin HFA] 90 mcg/actuation HFA aerosol inhaler 2 puff inhalation Q6H PRN (Reason: shortness of breath or wheezing) Qty: 8.5 0RF promethazine-DM 6.25-15 mg/5 mL syrup 5 ml PO Q6H PRN (Reason: cough) Qty: 473 0RF albuterol sulfate 90 mcg/actuation HFA aerosol inhaler 2 inh inhalation Q4H PRN (Reason: shortness of breath or wheezing) Qty: 8.5 0RF ibuprofen 800 mg tablet 800 mg PO Q6H PRN (Reason: pain) Qty: 10 0RF acetaminophen 500 mg tablet 1,000 mg PO Q6H PRN (Reason: pain) Qty: 20 0RF sennosides-docusate sodium [Senokot-S] 8.6-50 mg tablet 1 tab-cap PO QDAY Qty: 10 0RF magnesium citrate Solution 300 ml PO QDAY PRN (Reason: constipation) Qty: 296 0RF quetiapine [Seroquel] 300 mg tablet 300 mg PO .qhs Qty: 30 0RF quetiapine [Seroquel] 300 mg tablet 300 mg PO QDAY Qty: 30 0RF permethrin 5 % cream 1 applic topical Q14D Qty: 60 0RF Rx Instructions: apply second treatment 14 days after first treatment if live lice remain ondansetron 4 mg tablet,disintegrating 4 mg PO Q8H PRN (Reason: nausea and vomiting) Qty: 10 0RF dicyclomine 10 mg capsule 10 mg PO TID Qty: 30 0RF meloxicam 7.5 mg tablet 7.5 mg PO QDAY Qty: 14 0RF azithromycin 500 mg tablet See Rx Instructions .ROUTE .COMPLEX Qty: 6 0RF Rx Instructions: take 500 mg today (day 1), then 250 mg for 4 days (days 2-5) benzonatate 100 mg capsule 100 mg PO BID PRN (Reason: cough) Qty: 20 0RF ibuprofen 800 mg tablet 800 mg PO Q8H PRN (Reason: pain) Qty: 30 0RF hydrocodone-acetaminophen 5-325 mg tablet 1 tab PO Q8H MDD 10 PRN (Reason: pain) Qty: 10 0RF cephalexin 500 mg capsule 500 mg PO Q8H 7 Days Qty: 21 0RF Referrals: No Primary/Family,Physician [Primary Care Provider] - In 1 week Problem List Clinical Impression: PUD (peptic ulcer disease) Patient/Caregiver Discharge Instructions Discharge Activity: activity as tolerated Education Materials: ED PUD Additional Instructions: Discharge instructions from Dr. Lepe: ?After evaluation, your symptoms are due to stomach ulcer (see attached handout).? ?To help heal the ulcer, take Omeprazole 40 mg every morning and Famotidine 40 mg at bedtime for a month. ?Zofran for nausea/vomiting.? Clear liquid diet for 24 hours.? Then slowly advance diet as tolerated. ?Avoid food and beverages that can trigger and worsen ulcers.? See attached handout. --Tylenol with codeine for severe pain. ?See a private doctor on 09/17/2024 for recheck and further care. Ask to review all test results and official radiology reports, to make sure you receive all necessary follow-ups and monitoring. To make sure there is no serious intra-abdominal condition, ask for help with more investigation not available here in the ER.? Such as EGD or scoping the stomach, colonoscopy or scoping the colon, and referral to see account executive key accounts. ?Seek immediate medical care with worsening or with any concerns. Print Language: [place] Islander Stand Alone Forms: [facility] Award Info., Patient Portal Info Letter
[2024-09-16 09:41] VITALS: BP 116/89; PULSE 85; RESP 19; TEMP 36.4; O2SAT 99
--- NOTE | 2024-09-16 09:44 | XR_ITS ---
Examination: CT chest, without intravenous contrast. CT abdomen, without intravenous contrast. CT pelvis, without intravenous contrast. 2-D sagittal and coronal reconstructions. 3-D reconstructions. Date and time of exam:September 16, [address] abdomen pelvis September 06, 2024 INDICATIONS: Onset chest and abdominal pain with nausea vomiting diarrhea today CTDI vol (mgy) 8.96 DLP (MGycm)662 Technique: Multiple CT images, 3.0 mm slice thickness, obtained chest, abdomen, pelvis, with the high-resolution 64 slice scanner.. Sagittal and coronal 2-D reconstructions are obtained. 3-D reconstructions Low dose protocols were performed. One or more of the following dose reduction techniques were used; automated exposure control, adjustment of the mA and/or KV according to patient size, use of iterative reconstruction technique. Findings: No aneurysmal dilatation thoracic aorta Pulmonary artery segments are not enlarged No paratracheal tracheobronchial or bronchopulmonary adenopathy 2 mm pulmonary nodule right middle lobe image 177 No pneumonia or pulmonary edema or pleural disease No visualized liver splenic lesion No gallstones No pancreatic mass Edema involving the duodenal bulb and duodenal sweep 2 mm lower pole left renal calculus, no hydronephrosis or ureteral calculi Aorta normal size Normal appendix No bowel obstruction Anteverted uterus, no adnexal mass Intact urinary bladder Moderate osteopenia IMPRESSION: No pneumonia or pulmonary edema or pleural disease 2 mm pulmonary nodule right middle lobe, recommend 6 month follow-up CT chest without contrast Edema involving the duodenal bulb and duodenal sweep, consider active peptic disease of the duodenum 2 mm nonobstructing lower pole left renal calculus, no hydronephrosis or ureteral calculi Normal appendix No bowel obstruction or diverticulitis
--- NOTE | 2024-09-16 09:44 | XR_ITS ---
Examination: Abdomen sonogram, Limited Date and time of exam: 05/19/2024 1025 hours INDICATIONS: Right upper abdominal pain with nausea vomiting today Technique: Real-time charles scale transabdominal sonographic images of the upper abdomen obtained. Findings: Normal gallbladder Normal common bile duct 0.2 cm Pancreatic head 2.3 cm Liver 16.7 cm fatty infiltration Normal hepatopedal portal venous flow Patent IVC IMPRESSION: Normal gallbladder Fatty liver
[2024-09-16 09:50] VITALS: PULSE 90; RESP 18; O2SAT 98
[2024-09-16 10:29] LABS: Basophils # (Auto) 0.1 Thou/mm3 (0.0-0.2); Basophils % (Auto) 0 % (0-2.5); Eosinophils # (Auto) 0.1 Thou/mm3 (0.0-0.5); Eosinophils % (Auto) 1 % (0-10); Hematocrit 39.4 % (36.0-46.0); Hemoglobin 13.4 g/dL (12.0-16.0); Immature Granulocytes % (Auto) 1 % (0-0); Immature Granulocytes Auto 0.09 Thou/mm3 (0.00-0.00); Lymphocytes # (Auto) 2.1 Thou/mm3 (1.0-4.8); Lymphocytes % (Auto) 16 % (10-50); Mean Corpuscular Hemoglobin 30.4 pg (25.0-35.0); Mean Corpuscular Volume 89 fL (80-100); Monocytes # (Auto) 0.7 Thou/mm3 (0.0-0.8); Monocytes % (Auto) 5 % (0-12); Neutrophils # (Auto) 9.8 Thou/mm3 (1.8-7.7); Neutrophils % (Auto) 77 % (37-80); Nucleated Red Blood Cell % 0 /100 WBC (0); Platelet Count 405 Thou/mm3 (140-440); RDW Standard Deviation 51.2 fL (36.4-46.3); Red Blood Count 4.41 Miln/mm3 (4.00-5.20); White Blood Count 12.7 Thou/mm3 (3.6-11.0)
[2024-09-16 10:47] LABS: HCG,Qualitative Serum Negative
[2024-09-16 10:52] VITALS: BP 136/88; PULSE 93; RESP 18; O2SAT 98
[2024-09-16] MEDS: ONDANSETRON INJ 2 MG/ML INJ 2 ML 4 MG IVP (11:10)
[2024-09-16] MEDS: KETOROLAC INJ 30 MG/ML VIAL IVP (11:10)
[2024-09-16] MEDS: SODIUM CHLORIDE 0.9% 1000 ML 1,000 ML 999 ML IV (11:10)
[2024-09-16] MEDS: MORPHINE SULF INJ 10 MG/ML VIAL 6 MG IVP (11:11)
[2024-09-16 11:12] LABS: Alanine Aminotransferase 15 U/L (10-49); Albumin, Serum 4.1 gm/dL (3.5-5.0); Albumin/Globulin Ratio 2.2 (1.2-2.2); Alkaline Phosphatase 49 U/L (46-116); Anion Gap 12 (7-16); Aspartate Amino Transferase 12 U/L (0-34); BUN/Creatinine Ratio 26 Ratio (12-20); Bilirubin,Direct < 0.1 mg/dL (0.0-0.3); Bilirubin,Total 0.3 mg/dL (0.3-1.2); Blood Urea Nitrogen 13 mg/dL (9-23); Calcium 10.7 mg/dL (8.3-10.6); Calcium (Corrected) 10.7 mg/dL (8.5-10.1); Carbon Dioxide 17.2 mMol/L (20.0-31.0); Chloride 107 mMol/L (98-107); Creatinine (Component) 0.5 mg/dL (0.6-1.3); Globulin 1.9 gm/dL (2.3-3.5); Glucose 102 mg/dL (74-106); Lipase 31 U/L (12-53); Osmolality,Calculated 272 (275-295); Potassium 3.2 mMol/L (3.4-5.1); Sodium 136 mMol/L (136-145); eGFR > 60 See Note
[2024-09-16 11:13] VITALS: BMI 25.8
[2024-09-16 11:30] LABS: INR 1.3 (0.9-1.3); Partial Thromboplastin Time 29.6 Seconds (22.0-36.0); Prothrombin Time 13.5 Seconds (9.0-12.2)
[2024-09-16 11:51] LABS: Amylase 29 U/L (30-118)
[2024-09-16] MEDS: PANTOPRAZOLE INJ 40 MG VIAL IVP (13:59)
[2024-09-16] MEDS: FAMOTIDINE INJ 10 MG/ML VIAL 2 ML 20 MG IVP (14:02)
[2024-09-16] MEDS: MORPHINE SULF INJ 10 MG/ML VIAL 4 MG IVP (14:02)
[2024-09-16 14:32] VITALS: BP 121/83; PULSE 74; RESP 17; TEMP 36.6; O2SAT 98
--- NOTE | 2024-09-16 14:32 | PC.CC ---
SATYA, was consulted by MATT Lawrence regarding transportation for patient back home. ASW met with patient to confirm address. ASW arranged transportation with [facility].
[2024-09-16 15:16] VITALS: BP 140/82; PULSE 94; RESP 18; TEMP 36.6; O2SAT 95
== END 2024-09-16 15:05 | disposition home or self-care (01) ==
PROVIDERS: Emergency Provider Emergency Medicine
DX: K27.9 Peptic ulcer, site unspecified, unspecified as acute or chronic, without hemorrhage or perforation (principal); R10.11 Right upper quadrant pain
CPT/HCPCS: 36415; 71250; 74176; 76705; 80053; 81001; 81025; 82150; 82248; 83690; 83735; 84703; 85025; 85610; 85730; 87400; 87811; 96361; 96374; 96375; 99284; J1885; J2270; J2405; J2470; J3490; J7030

== ENCOUNTER 2024-09-22 10:59 | Emergency (ER) | payer MEDICAID, SELFPAY ==
[2024-09-22 11:03] VITALS: BP 106/70; PULSE 82; RESP 18; TEMP 36.6; O2SAT 98
[2024-09-22 11:17] VITALS: PULSE 82; RESP 17; O2SAT 98
[2024-09-22 11:32] VITALS: BP 109/72; PULSE 84; RESP 16; TEMP 37.1; O2SAT 97
--- NOTE | 2024-09-22 11:50 | PD.EDRME ---
Rapid Medical Screening Exam RME Arrival date/time: 09/22/24 10:59 44-year-old female presents to the emergency department today for complaint of abdominal pain nausea vomiting today Chief Complaint: Nausea/Vomiting/Diarrhea Vital signs: Vital Signs Temperature 98 F 09/22/24 11:03 Pulse Rate 82 09/22/24 11:03 Respiratory Rate 18 09/22/24 11:03 Blood Pressure 106/70 09/22/24 11:03 Pulse Oximetry (%) 98 09/22/24 11:03 Oxygen Delivery Method Room Air 09/22/24 11:03
[2024-09-22 12:25] LABS: Basophils # (Auto) 0.1 Thou/mm3 (0.0-0.2); Basophils % (Auto) 1 % (0-2.5); Eosinophils # (Auto) 0.4 Thou/mm3 (0.0-0.5); Eosinophils % (Auto) 4 % (0-10); Hematocrit 31.8 % (36.0-46.0); Hemoglobin 10.4 g/dL (12.0-16.0); Immature Granulocytes % (Auto) 1 % (0-0); Immature Granulocytes Auto 0.04 Thou/mm3 (0.00-0.00); Lymphocytes # (Auto) 1.6 Thou/mm3 (1.0-4.8); Lymphocytes % (Auto) 20 % (10-50); Mean Corpuscular HGB Conc 32.7 g/dl (31.0-37.0); Mean Corpuscular Volume 95 fL (80-100); Monocytes # (Auto) 0.5 Thou/mm3 (0.0-0.8); Monocytes % (Auto) 6 % (0-12); Neutrophils # (Auto) 5.6 Thou/mm3 (1.8-7.7); Neutrophils % (Auto) 69 % (37-80); Nucleated Red Blood Cell % 0 /100 WBC (0); Platelet Count 391 Thou/mm3 (140-440); RDW Standard Deviation 58.3 fL (36.4-46.3); Red Blood Count 3.35 Miln/mm3 (4.00-5.20); White Blood Count 8.1 Thou/mm3 (3.6-11.0)
[2024-09-22 12:46] LABS: Alanine Aminotransferase 24 U/L (10-49); Albumin, Serum 3.6 gm/dL (3.5-5.0); Albumin/Globulin Ratio 1.9 (1.2-2.2); Alkaline Phosphatase 44 U/L (46-116); Anion Gap 8 (7-16); Aspartate Amino Transferase 19 U/L (0-34); BUN/Creatinine Ratio 13 Ratio (12-20); Bilirubin,Total 0.3 mg/dL (0.3-1.2); Blood Urea Nitrogen 8 mg/dL (9-23); Calcium 9.8 mg/dL (8.3-10.6); Calcium (Corrected) 10.1 mg/dL (8.5-10.1); Carbon Dioxide 21.1 mMol/L (20.0-31.0); Chloride 112 mMol/L (98-107); Creatinine (Component) 0.6 mg/dL (0.6-1.3); Estimated Creatinine Clearance 135.7 mL/min (>60); Globulin 1.9 gm/dL (2.3-3.5); Glucose 94 mg/dL (74-106); Lipase 30 U/L (12-53); Osmolality,Calculated 279 (275-295); Potassium 3.8 mMol/L (3.4-5.1); Sodium 141 mMol/L (136-145); Total Protein 5.5 gm/dL (5.7-8.2); eGFR > 60 See Note
--- NOTE | 2024-09-22 13:58 | PC.NURSE ---
NAx1 @1936 for medication.
--- NOTE | 2024-09-22 14:45 | PC.NURSE ---
NAx2 @2134 for medication
--- NOTE | 2024-09-22 15:10 | PC.NURSE ---
NAx1 @1510.
--- NOTE | 2024-09-22 15:11 | PC.NURSE ---
NAx3@ 1510.
== END 2024-09-22 15:12 | disposition left against medical advice (07) ==
PROVIDERS: Nurse Practitioner Primary Care; Emergency Provider Emergency Medicine; PCP Nurse Practitioner Women's Health
DX: R11.2 Nausea with vomiting, unspecified (principal); R19.7 Diarrhea, unspecified; R10.9 Unspecified abdominal pain
CPT/HCPCS: 36415; 80053; 81001; 81025; 83690; 85025; 99281

== ENCOUNTER 2024-10-01 22:25 | Emergency (ER) | payer MEDICAID, SELFPAY ==
[2024-10-01 22:37] VITALS: PULSE 100; RESP 18; O2SAT 98
--- NOTE | 2024-10-01 22:40 | PC.NURSE ---
WHILE CHECKING IN PATIENT AT TRIAGE PT DENIED ANY N/V. ASKED PT WHAT SHE WAS HERE FOR, PT STATES I DONT KNOW THE AMBULANCE BROUGHT ME HERE . PT THEN SAID SHE WAS GOING TO LEAVE AND GOT UP OUT OF WHEEL CHAIR AND WALKED OUT OF ER.
--- NOTE | 2024-10-01 22:59 | PC.NURSE ---
Pt did not answer when name was called
--- NOTE | 2024-10-02 01:27 | PD.EDADDENDU ---
Emergency Room Addendum Addendum Narrative: When I looked for the patient to start my evaluation, I was told the patient eloped. Ethan Colon MD
== END 2024-10-02 01:50 | disposition left against medical advice (07) ==
LOC: SERX 23:37
PROVIDERS: Emergency Provider Emergency Medicine
DX: Z53.21 Procedure and treatment not carried out due to patient leaving prior to being seen by health care provider (principal)

== ENCOUNTER 2024-10-12 12:49 | Inpatient (IN) | payer MEDICAID, SELFPAY ==
[2024-10-12] VITALS (8 sets, daily range): BP systolic 107–133; BP diastolic 73–87; PULSE 70–107; RESP 14–20; TEMP 36.4–37.2; O2SAT 95–100; BMI 24.2
[2024-10-12 13:28] LABS: Basophils # (Auto) 0.1 Thou/mm3 (0.0-0.2); Basophils % (Auto) 1 % (0-2.5); Eosinophils # (Auto) 0.1 Thou/mm3 (0.0-0.5); Eosinophils % (Auto) 2 % (0-10); Hematocrit 38.2 % (36.0-46.0); Hemoglobin 13.1 g/dL (12.0-16.0); Immature Granulocytes Auto 0.03 Thou/mm3 (0.00-0.00); Lymphocytes # (Auto) 2.1 Thou/mm3 (1.0-4.8); Lymphocytes % (Auto) 26 % (10-50); Mean Corpuscular HGB Conc 34.3 g/dl (31.0-37.0); Mean Corpuscular Hemoglobin 31.6 pg (25.0-35.0); Mean Corpuscular Volume 92 fL (80-100); Monocytes # (Auto) 0.6 Thou/mm3 (0.0-0.8); Monocytes % (Auto) 8 % (0-12); Neutrophils # (Auto) 5.2 Thou/mm3 (1.8-7.7); Neutrophils % (Auto) 64 % (37-80); Nucleated Red Blood Cell # 0.00 Thou/mm3 (0.00-0.00); Nucleated Red Blood Cell % 0 /100 WBC (0); Platelet Count 299 Thou/mm3 (140-440); RDW Standard Deviation 53.1 fL (36.4-46.3); Red Blood Count 4.14 Miln/mm3 (4.00-5.20); White Blood Count 8.2 Thou/mm3 (3.6-11.0)
[2024-10-12 13:32] LABS: HCG,Qualitative Serum Negative
[2024-10-12 13:39] LABS: Alanine Aminotransferase 49 U/L (10-49); Albumin, Serum 3.5 gm/dL (3.5-5.0); Albumin/Globulin Ratio 1.5 (1.2-2.2); Alkaline Phosphatase 64 U/L (46-116); Anion Gap 11 (7-16); Aspartate Amino Transferase 31 U/L (0-34); BUN/Creatinine Ratio 10 Ratio (12-20); Bilirubin,Total 0.4 mg/dL (0.3-1.2); Blood Urea Nitrogen 7 mg/dL (9-23); Calcium 9.8 mg/dL (8.3-10.6); Calcium (Corrected) 10.2 mg/dL (8.5-10.1); Carbon Dioxide 19.1 mMol/L (20.0-31.0); Chloride 109 mMol/L (98-107); Creatinine (Component) 0.7 mg/dL (0.6-1.3); Estimated Creatinine Clearance 95.0 mL/min (>60); Globulin 2.3 gm/dL (2.3-3.5); Glucose 80 mg/dL (74-106); Lipase 25 U/L (12-53); Osmolality,Calculated 274 (275-295); Potassium 3.4 mMol/L (3.4-5.1); Sodium 139 mMol/L (136-145); Total Protein 5.8 gm/dL (5.7-8.2); eGFR > 60 See Note
--- NOTE | 2024-10-12 14:37 | XR_ITS ---
Examination: CT abdomen with intravenous contrast CT pelvis with intravenous contrast 2-D coronal reconstructions 2-D sagittal reconstructions Date and time of exam:October 12, 2024 1607 hours Comparison September 16, 2024 INDICATIONS: Abdominal pain radiating to the lower back beginning 2 days ago, history kidney stones. CTDI: vol (mGy) 7.9 DLP: (mGycm) 478 Technique: Multiple axial sections of the abdomen and pelvis have been obtained. 64 slice high-resolution scanner used. 3 mm axial sections have been obtained, post intravenous injection of 60 cc Isovue 370 2-D sagittal, coronal reconstructions obtained. Low dose protocols were performed. One or more of the following dose reduction techniques were used; automated exposure control, adjustment of the mA and/or KV according to patient size, use of iterative reconstruction technique. Findings: No focal liver or splenic lesions No gallstones Inflammatory change involving the duodenal bulb and duodenal and some edema in the pancreatic head No hydronephrosis Dilated jejunal loops Aorta normal size Normal appendix No bowel obstruction No pelvic mass Urinary bladder wall thickening up to 6 mm IMPRESSION: Active peptic disease involving the duodenum Suspicious for pancreatitis Consider MRCP follow-up Small bowel ileus
[2024-10-12] MEDS: MORPHINE SULF INJ 10 MG/ML VIAL 4 MG IVP (15:01)
--- NOTE | 2024-10-12 17:27 | EDNOTE_ITS ---
ED Abdominal Pain RME/HPI General Chief Complaint: Abdominal Pain Stated complaint: ABD PAIN Time seen by provider: 10/12/24 13:02 Arrival date/time: 10/12/24 12:49 Limitations: no limitations RME / HPI RME / HPI narrative: Patient is a 44 year old female who was brought in by EMS for abdominal pain. This started yesterday. She has had 2-3 episodes of emesis without diarrhea. She has no fever or chills. No urinary changes. She is bipolar. Related Data Home Medications ?Medication ?Instructions ?Recorded ?Confirmed fluoxetine 20 mg capsule (Prozac) 60 mg PO QAM #0 caps 11/04/16 07/04/21 quetiapine 300 mg tablet 300 mg PO QDAY 07/04/2109/19 topiramate 100 mg tablet 100 mg PO BID 07/04/2107/04 Previous Rx's ?Medication ?Instructions ?Recorded hydrocodone 5 mg-acetaminophen 325 1 tab PO BID PRN pa in #4 tabs 07/04/21 mg tablet ibuprofen 800 mg tablet 800 mg PO TID PRN pain #30 t abs 07/04/21 ibuprofen 800 mg tablet 800 mg PO TID PRN pain #30 t abs 07/21/21 lidocaine HCl 2 % mucosal solution 10 ml PO Q6HR PRN p ain #200 mL 07/21/21 (Lidocaine Viscous) tramadol 37.5 mg-acetaminophen 325 1 tab PO TID PRN pa in #30 tabs 07/28/21 mg tablet (Ultracet) acetaminophen 500 mg capsule 1,000 mg (2 x 500 mg) PO Q8HR PRN 08/20/21 pain #60 caps doxycycline hyclate 100 mg tablet 100 mg PO BID #14 ta bs 08/20/21 cyclobenzaprine 10 mg tablet 10 mg PO TID PRN muscle s pasm #20 09/28/21 tabs naproxen 500 mg tablet (Naprosyn) 500 mg PO Q12H PRN p ain #30 tabs 09/28/21 albuterol sulfate 90 mcg/actuation 2 puff inhalation Q 6H PRN 11/13/21 aerosol inhaler (Ventolin HFA) shortness of breath or wheezing #8.5 grams promethazine-DM 6.25 mg-15 mg/5 mL 5 ml PO Q6H PRN cou gh #473 mL 11/13/21 oral syrup azithromycin 500 mg tablet See Rx Instructions PO .COM PLEX #6 12/05/21 tabs benzonatate 100 mg capsule 100 mg PO BID PRN cough #20 caps 12/05/21 albuterol sulfate 90 mcg/actuation 2 inh inhalation Q4 H PRN shortness 12/16/21 aerosol inhaler of breath or wheezing #8.5 g shawanda acetaminophen 500 mg tablet 1,000 mg (2 x 500 mg) PO Q 6H PRN 05/25/22 pain #20 tabs ibuprofen 800 mg tablet 800 mg PO Q6H PRN pain #10 t abs 05/25/22 sennosides 8.6 mg-docusate sodium 1 tab-cap PO QDAY #1 0 tabs 05/25/22 50 mg tablet (Senokot-S) hydrocodone 5 mg-acetaminophen 325 1 tab PO Q8H PRN pa in #10 tabs 06/01/22 mg tablet ibuprofen 800 mg tablet 800 mg PO Q8H PRN pain #30 t abs 06/01/22 magnesium citrate 300 ml PO QDAY PRN constipat ion 12/18/22 #296 mL quetiapine 300 mg tablet (Seroquel) 300 mg PO .qhs #30 tabs 04/11/24 quetiapine 300 mg tablet (Seroquel) 300 mg PO QDAY #30 tabs 04/11/24 permethrin 5 % topical cream 1 applic topical Q14D 2 d oses #60 07/11/24 grams dicyclomine 10 mg capsule 10 mg PO TID #30 caps meloxicam 7.5 mg tablet 7.5 mg PO QDAY #14 tabs 06/12/23 ondansetron 4 mg disintegrating 4 mg PO Q8H PRN nausea and 09/06/24 tablet vomiting #10 tabs acetaminophen 300 mg-codeine 30 mg 2 tab PO Q8H PRN pa in #20 tabs 09/16/24 tablet famotidine 40 mg tablet 40 mg PO .bedtime #30 tabs 0 09/16/24 omeprazole 40 mg capsule,delayed 40 mg PO QDAY #30 cap s 09/16/24 release ondansetron 4 mg disintegrating 4 mg PO TID PRN nausea and 09/16/24 tablet vomiting 30 days #10 tabs hydrocodone 5 mg-acetaminophen 325 1 tab PO Q6H PRN pa in #10 tabs 10/12/24 mg tablet Allergies Allergy/AdvReac Type Severity Reaction Status Date / Time amoxicillin Allergy Severe RASH TO Verified 09/22/24 11:22 [facility] ED Exam General Limitations: Present no limitations General appearance: Present alert and in no apparent distress Head Head exam: Present atraumatic Eye Eye exam: Present normal appearance, PERRL and EOMI ENT ENT exam: Present normal exam, normal oropharynx and mucous membranes moist Neck Neck exam: Present normal inspection, full ROM and trachea midline Chest Chest inspection: Present normal inspection and symmetric chest wall rise Respiratory Respiratory exam: Present normal lung sounds bilaterally Cardiovascular Cardiovascular exam: Present regular rate, normal rhythm and normal heart sounds Abdominal Exam Abdominal exam: Present soft and tenderness Extremities Exam Extremities exam: Present normal inspection and full ROM Back Exam Back exam: Present normal inspection and full ROM Neurological Exam Neurological exam: Present alert and oriented X3 Psychiatric Psychiatric exam: Present anxious Skin Skin exam: Present warm, dry, intact and normal color Course Quality Measures none Orders Category Date Time Status Admit to Inpatient Status Routine Admission 10/12/24 18:45 Active Patient Condition Routine Admission 10/12/24 18:45 Ordered Activity as Tolerated Routine Care 10/12/24 18:46 Ordered COVID-19 Screening Questionnaire NOW Care 10/12/24 17:53 Active COVID-19 Screening Questionnaire NOW Care 10/12/24 18:[address] Screening NOW Care 10/12/24 14:37 Active Decision to Admit X1 Care 10/12/24 17:53 Completed Decision to Admit X1 Care 10/12/24 18:37 Completed EKG (ED ONLY) *Do not use* NOW Care 10/12/24 18:53 Completed EKG (ED ONLY) *Do not use* NOW Care 10/12/24 19:26 Completed Miscellaneous Nursing Order NOW Care 10/12/24 19:01 Active NPO NOW Care 10/12/24 18:47 Active Notify provider NEEDED Care 10/12/24 18:45 Active Obtain weight NOW Care 10/12/24 18:45 Active Consult to Gastroenterology Stat Cons 10/12/24 17:49 Ordered Diet NPO (NOW) Diet 10/12/24 18:[address] abdomen pelvis w con Stat Exams 10/12/24 14:37 Completed EKG (ED Only) Stat Exams 10/12/24 18:51 Draft EKG (ED Only) Stat Exams 10/12/24 19:26 Ordered US gall bladder Stat Exams 10/12/24 19:16 Ordered CBC AM DRAW Lab 10/13/24 05:00 Ordered CBC AM DRAW Lab 10/14/24 05:00 Ordered CBC AM DRAW Lab 10/15/24 05:00 Ordered CBC AM DRAW Lab 10/16/24 05:00 Ordered CBC Stat Lab 10/12/24 13:15 Completed CMP [Comprehensive Metabolic Panel] Stat Lab 10/12/24 13:15 Completed Comprehensive Metabolic Panel AM DRAW Lab 10/13/24 05:00 Ordered Comprehensive Metabolic Panel AM DRAW Lab 10/14/24 05:00 Ordered Comprehensive Metabolic Panel AM DRAW Lab 10/15/24 05:00 Ordered Comprehensive Metabolic Panel AM DRAW Lab 10/16/24 05:00 Ordered HCG,Qualitative Serum Stat Lab 10/12/24 13:15 Completed Lipase Stat Lab 10/12/24 13:15 Completed Lipid Panel AM DRAW Lab 10/13/24 05:00 Ordered [place] Stat Lab 10/12/24 18:54 Ordered Magnesium AM DRAW Lab 10/13/24 05:00 Ordered Magnesium AM DRAW Lab 10/14/24 05:00 Ordered Magnesium AM DRAW Lab 10/15/24 05:00 Ordered Magnesium AM DRAW Lab 10/16/24 05:00 Ordered Phosphorous AM DRAW Lab 10/13/24 05:00 Ordered Phosphorous AM DRAW Lab 10/14/24 05:00 Ordered Phosphorous AM DRAW Lab 10/15/24 05:00 Ordered Phosphorous AM DRAW Lab 10/16/24 05:00 Ordered Prothrombin Time with INR Routine Lab 10/13/24 18:52 Ordered Thyroid Stimulating Hormone AM DRAW Lab 10/13/24 05:00 Ordered Troponin I Stat Lab 10/12/24 18:53 Ordered UA, C/S IF [Urinalysis, C/S if Indicated] Stat Lab 10/12/24 17:20 Completed Acetaminophen Ivpb [Ofirmev Inj] Med 10/12/24 19:16 Active 1,000 mg in 100 ml IV Q6HR Acetaminophen Tab [Tylenol Tab] Med 10/12/24 18:45 Discontinued 650 mg PO Q6H PRN Acetaminophen Tab [Tylenol Tab] Med 10/12/24 18:45 Hold 650 mg PO Q6H PRN Albuterol/Ipratr Rt Holly [Duoneb Rt Holly] Med 10/12/24 19:06 Active 3 ml INH Q6HRRT PRN HYDROcodone*/APAP 5/325 [[place] 5/325] Med 10/12/24 18:58 Discontinued 1 tab PO Q4HR PRN HYDROmorphone INJ [Dilaudid Inj] Med 10/12/24 19:14 Discontinued 1 mg IVP Q4HR PRN HYDROmorphone INJ [Dilaudid Inj] Med 10/12/24 19:17 Active 1 mg IVP Q4HR PRN Levothyroxine Sodium [Synthroid] Med 10/12/24 19:15 Active 37.5 mcg PO ACBR Levothyroxine Sodium [Synthroid] Med 10/13/24 09:00 Stop Req 50 mcg PO QDAY Morphine Inj Med 10/12/24 18:51 Discontinued 2 mg IVP Q2H PRN Morphine Inj Med 10/12/24 19:06 Discontinued 2 mg IVP Q4H PRN Morphine Inj Med 10/12/24 17:56 Discontinued 2 mg IVP X1 ONE Morphine Inj Med 10/12/24 14:37 Discontinued 4 mg IVP X1 ONE Ondansetron Inj [Zofran Inj] Med 10/12/24 18:58 Active 4 mg IVP Q6H PRN Pantoprazole Inj [Protonix Inj] Med 10/12/24 19:30 Active 40 mg IVP QDAY Pantoprazole/Ns 80Mg IV Premix [Protonix/NS 80mg IV Med 10/12/24 17:56 Discontinued Premix] 80 mg in 100 ml IV Q10H Ringers Lactated 1000 ml [Lactated Ringers] 1,000 ml Med 10/12/24 18:45 Active IV 150 mls/hr Code Status Routine Oth 10/12/24 18:45 Ordered EKG (RT) Stat RT 10/12/24 19:26 Ordered Vital Signs Vital signs: Vital Signs Temperature 98.2 F 10/12/24 12:50 Pulse Rate 77 10/12/24 12:50 Respiratory Rate 18 10/12/24 12:50 Blood Pressure 123/81 10/12/24 12:50 Pulse Oximetry (%) 98 10/12/24 12:50 Oxygen Delivery Method Room Air 10/12/24 12:50 Abdominal Pain MDM MDM Narrative MDM Narrative:: Patient is a 44 year old female who was brought in by EMS for abdominal pain. This started yesterday. She has had 2-3 episodes of emesis without diarrhea. She has no fever or chills. No urinary changes. She is bipolar. Her CBC, CMP, and lipase are unremarkable CT shows questionable early pancrea titis with inflammation at the head. Case was discussed with Dr. Cooley with gastroenterology. We will admit to medicine for pain control and to consider endoscopy. Dr. Cooley will follow. Patient data External records reviewed:: [facility] previous records Clinical information provided by:: patient and EMS Social determinants that could affect healthcare access:: mental health Patient has the following chronic illnesses:: Peptic ulcer disease, bipolar How is presenting disease/condition affected by chronic disease/condition?: exacerbated by Evaluation data The following diagnostics were reviewed and interpreted by me:: lab results (Patient has no leukocytosis or metabolic derangement) and radiology exam(s) (CT abdomen and pelvis is concerning for early pancreatitis and peptic ulcer disease) Lab and/or radiology exams considered but not ordered:: n/a Interpretation Summary: Acute pancreatitis, peptic ulcer disease Medications / Prescriptions Medications or Prescriptions considered but not ordered:: n/a Medication administrations:: Medication Administration History Acetaminophen (Acetaminophen 325 Mg Tablet) 650 mg PO Q6H PRN PRN Reason: PAIN SCALE 1-3 (mild Stop: 11/11/24 18:44 Albuterol/Ipratropium (Albuterol/Ipratropium (Duoneb) Rt Holly 3 Ml Nebu) 3 ml INH Q6HRRT PRN PRN Reason: sob/wheezing Stop: 11/12/24 00:59 Hydromorphone HCl (Hydromorphone Inj 2 Mg/Ml Vial) 1 mg IVP Q4HR PRN PRN Reason: PAIN SCALE 4-10(Mod-Sev) Stop: 10/17/24 19:13 Lactated Ringer's (Lactated Ringers) 1,000 mls @ 150 mls/hr IV .Q6H40M BEATRIZ Stop: 11/11/24 18:44 Acetaminophen (Ofirmev Inj) 1,000 mg in 100 mls @ 250 mls/hr IV Q6HR PRN PRN Reason: Fever, pain mild Stop: 10/13/24 12:23 Levothyroxine Sodium (Levothyroxine Inj 100 Mcg Vial) 37.5 mcg IV QDAY [facility] Stop: 11/11/24 19:29 Ondansetron HCl (Ondansetron Inj 2 Mg/Ml Inj 2 Ml) 4 mg IVP Q6H PRN; Protocol PRN Reason: NAUSEA OR VOMITING Stop: 11/11/24 18:57 Pantoprazole Sodium (Pantoprazole Inj 40 Mg Vial) 40 mg IVP QDAY [facility] Stop: 11/11/24 19:29 Discontinued Medications Acetaminophen (Acetaminophen 325 Mg Tablet) 650 mg PO Q6H PRN PRN Reason: Fever >101.5 Stop: 11/11/24 18:44 Hydrocodone Bitart/Acetaminophen (Hydrocodone/Apap 5/325 Tablet) 1 tab PO Q4HR PRN PRN Reason: PAIN SCALE 4-6 (Moderate Stop: 10/17/24 18:57 Hydromorphone HCl (Hydromorphone Inj 2 Mg/Ml Vial) 1 mg IVP Q4HR PRN PRN Reason: PAIN SCALE 7-10 (Severe Stop: 10/17/24 19:13 Pantoprazole Sodium (Protonix/Ns 80mg Iv Premix) 80 mg in 100 mls @ 10 mls/hr IV Q10H [facility] Stop: 10/15/24 15:55 Last Admin: 10/12/24 18:10 Dose: 10 mls/hr Documented By: MM Levothyroxine Sodium (Levothyroxine Sodium 25 Mcg Tablet) 50 mcg PO [facility] Stop: 11/12/24 05:59 Levothyroxine Sodium (Levothyroxine Sodium 25 Mcg Tablet) 37.5 mcg PO [facility] Stop: 11/11/24 19:14 Morphine Sulfate (Morphine Sulf Inj 10 Mg/Ml Vial) 4 mg IVP X1 ONE Stop: 10/12/24 14:38 Last Admin: 10/12/24 15:01 Dose: 4 mg Documented By: MM Morphine Sulfate (Morphine Sulf Inj 10 Mg/Ml Vial) 2 mg IVP X1 ONE Stop: 10/12/24 17:57 Last Admin: 10/12/24 18:07 Dose: 2 mg Documented By: MM Morphine Sulfate (Morphine Sulf Inj 10 Mg/Ml Vial) 2 mg IVP Q2H PRN PRN Reason: PAIN SCALE 7-10 (Severe Stop: 10/17/24 18:50 Morphine Sulfate (Morphine Sulf Inj 10 Mg/Ml Vial) 2 mg IVP Q4H PRN PRN Reason: PAIN SCALE 7-10 (Severe Stop: 10/17/24 18:50 See above Consultations Consultation(s) initiated? (list below): No Diagnosis Differential diagnosis abdominal pain: abdominal pain, gastroenteritis, pancreatitis and small bowel obstruction Most likely diagnosis given after review of the tests above:: Pancreatitis Admission Indicated Admission indicated?: indicated Admission Request Was there a request for admission?: Yes Admission Attestation Admission request attestation: Discussed case with [] from Hospitalist service regarding admission. Discussed patients ED course, exam findings, labs, and radiology results. The Hospitalist [agrees,declines] to accept the patient for admission. Disposition Plan Disposition Plan: Admit Discharge Plan Plan Patient Disposition: HOME (Self Care) Patient condition on transfer: Stable Prescriptions/Referrals Prescriptions/Med Rec: New hydrocodone-acetaminophen 5-325 mg tablet 1 tab PO Q6H MDD max 4 tabs per day PRN (Reason: pain) Qty: 10 0RF No Action fluoxetine [Prozac] 20 MG capsule 60 mg PO QAM Qty: 0 ibuprofen 800 mg tablet 800 mg PO TID PRN (Reason: pain) Qty: 30 0RF lidocaine HCl [Lidocaine Viscous] 2 % solution 10 ml PO Q6HR PRN (Reason: pain ) Qty: 200 0RF quetiapine 300 mg tablet 300 mg PO QDAY Patient Comments: TAKE 2 TABLETS BY MOUTH EVERY NIGHT AT BEDTIME topiramate 100 mg Tablet 100 mg PO BID ibuprofen 800 mg tablet 800 mg PO TID PRN (Reason: pain) Qty: 30 0RF hydrocodone-acetaminophen 5-325 mg tablet 1 tab PO BID MDD 10 PRN (Reason: pain) Qty: 4 0RF tramadol-acetaminophen [Ultracet] 37.5-325 mg tablet 1 tab PO TID PRN (Reason: pain) Qty: 30 0RF acetaminophen 500 mg capsule 1,000 mg PO Q8HR PRN (Reason: pain) Qty: 60 0RF doxycycline hyclate 100 mg tablet 100 mg PO BID Qty: 14 0RF naproxen [Naprosyn] 500 mg tablet 500 mg PO Q12H PRN (Reason: pain) Qty: 30 0RF cyclobenzaprine 10 mg tablet 10 mg PO TID PRN (Reason: muscle spasm) Qty: 20 0RF albuterol sulfate [Ventolin HFA] 90 mcg/actuation HFA aerosol inhaler 2 puff inhalation Q6H PRN (Reason: shortness of breath or wheezing) Qty: 8.5 0RF promethazine-DM 6.25-15 mg/5 mL syrup 5 ml PO Q6H PRN (Reason: cough) Qty: 473 0RF albuterol sulfate 90 mcg/actuation HFA aerosol inhaler 2 inh inhalation Q4H PRN (Reason: shortness of breath or wheezing) Qty: 8.5 0RF ibuprofen 800 mg tablet 800 mg PO Q6H PRN (Reason: pain) Qty: 10 0RF acetaminophen 500 mg tablet 1,000 mg PO Q6H PRN (Reason: pain) Qty: 20 0RF sennosides-docusate sodium [Senokot-S] 8.6-50 mg tablet 1 tab-cap PO QDAY Qty: 10 0RF magnesium citrate Solution 300 ml PO QDAY PRN (Reason: constipation) Qty: 296 0RF quetiapine [Seroquel] 300 mg tablet 300 mg PO .qhs Qty: 30 0RF quetiapine [Seroquel] 300 mg tablet 300 mg PO QDAY Qty: 30 0RF permethrin 5 % cream 1 applic topical Q14D Qty: 60 0RF Rx Instructions: apply second treatment 14 days after first treatment if live lice remain ondansetron 4 mg tablet,disintegrating 4 mg PO Q8H PRN (Reason: nausea and vomiting) Qty: 10 0RF dicyclomine 10 mg capsule 10 mg PO TID Qty: 30 0RF meloxicam 7.5 mg tablet 7.5 mg PO QDAY Qty: 14 0RF azithromycin 500 mg tablet See Rx Instructions .ROUTE .COMPLEX Qty: 6 0RF Rx Instructions: take 500 mg today (day 1), then 250 mg for 4 days (days 2-5) benzonatate 100 mg capsule 100 mg PO BID PRN (Reason: cough) Qty: 20 0RF ibuprofen 800 mg tablet 800 mg PO Q8H PRN (Reason: pain) Qty: 30 0RF hydrocodone-acetaminophen 5-325 mg tablet 1 tab PO Q8H MDD 10 PRN (Reason: pain) Qty: 10 0RF famotidine 40 mg tablet 40 mg PO .bedtime Qty: 30 0RF acetaminophen-codeine 300-30 mg tablet 2 tab PO Q8H MDD 6 PRN (Reason: pain) Qty: 20 0RF omeprazole 40 mg capsule,delayed release(DR/EC) 40 mg PO QDAY Qty: 30 0RF ondansetron 4 mg tablet,disintegrating 4 mg PO TID PRN (Reason: nausea and vomiting) 30 Days Qty: 10 0RF Referrals: Avinash Patel MD [Primary Care Provider] - In 1 week Problem List Clinical Impression: Abdominal pain, Pancreatitis, Peptic ulcer disease Patient/Caregiver Discharge Instructions Education Materials: Abdominal Pain Additional Instructions: -Use the provided medication as prescribed. -Your imaging test shows concerns for possible early pancreatitis, please do not hesitate to return here for any pain or worsening changes. Print Language: [place] Stand Alone Forms: [facility] Award Info., Patient Portal Info Letter
[2024-10-12 17:52] LABS: Collection Type, Urine Voided
[2024-10-12] MEDS: MORPHINE SULF INJ 10 MG/ML VIAL 2 MG IVP (18:07)
[2024-10-12 18:09] LABS: Bilirubin,Urine Negative (Negative); Blood,Urine Negative (Negative); Clarity,Urine Clear (Clear/Hazy); Color,Urine Colorless (Lt Yel-Yel); Culture Indicated,Urine Not Indicated; Glucose, Urine Negative (Negative); Ketones,Urine 3+ (Negative); Leukocyte Esterase,Urine Negative (Negative); Nitrite,Urine Negative (Negative); PH,Urine 6.5 (5.0-7.0); Protein,Urine Negative (Neg - Trace); RBC,Urine 1 /hpf (0-3); Specific Gravity,Urine 1.040 (1.001-1.035); Squamous Epithelial Cell,Urine 2 /hpf (0-5); Urobilinogen,Urine Negative mg/dL (0.0-1.0); WBC,Urine < 1 /hpf (0-5)
[2024-10-12] MEDS: PANTOPRAZOLE/NS 80MG IV PREMIX 80 MG/100 ML BAG 10 MG IV (18:10)
--- NOTE | 2024-10-12 18:51 | EKG_ITS ---
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
--- NOTE | 2024-10-12 19:13 | ESHP_ITS ---
<Statement entered by Deonna Mcmahon MD - 10/12/24 20:16> I have reviewed the note and agree with the resident's assessment & plan with exceptions as below. I have personally reviewed labs, imaging, home meds/prior records, examined the patient, formulated and discussed management plan with the IM team. This is a 44-year-old female with extensive past psych medical history, is on multiple agents including SSRI, Latuda, and lithium. Patient reports that she recently stopped taking her psych medicines as she was unable to tolerate p.o., including nausea and vomiting. She reports that she lives alone in her apartment and makes all her medical decisions. She does state that she has been having abdominal pain that is located in her epigastric region and radiates to her back. She does report also right upper quadrant pain especially on physical exam. CT imaging shows possible pancreatic findings of pancreatitis. There was also some findings on CT scan that included peptic ulcer disease. ED spoke with Dr. Cooley GI, who recommended admission for possible endoscopy and pain control. Due to concern for cholelithiasis, will repeat abdominal ultrasound although this was previously done a couple of weeks ago. I am concerned with patient having positive Grullon sign, and on the CT scan there was some recommendation that included MRCP. I am less concerned for cholangitis at this time as patient does not have elevation in total bilirubin, ALP or liver enzymes. Nevertheless I will repeat abdominal ultrasound, continue pain control and treat for pancreatitis due due to radiographic findings and characteristic pancreatic abdominal pain #Abdominal pain DDx: Gastritis, PUD, pancreatitis, cholelithiasis, Plan: ? GI consult, appreciate recs ? Protonix 40 mg ? Multimodal pain management ? Abdominal ultrasound ? N.p.o. ? IV LR 150 cc/hour #Bipolar Disorder #Depression Plan: ? Resume all home medicines including SSRI, Latuda, lithium Deonna Mcmahon, PGY-2 Internal Medicine Documentation for date of: 10/12/24 HPI History of Present Illness History of present illness: A 44-year-old female with hypothyroidism, bipolar disorder, depression/anxiety, schizophrenia presents to the emergency department with a two-month history of persistent, severe epigastric abdominal pain, accompanied by nausea, vomiting, and diarrhea. She describes the pain as stabbing, 8/10 in intensity, radiating to her back. She experiences approximately three episodes of non-bloody emesis and three episodes of very loose, non-bloody diarrhea daily. The patient notes the pain has been ongoing for two months without improvement, which is her primary reason for seeking emergency care today. She denies dysuria. Additionally, the patient reports central chest pain that is worse with inspiration and expiration. She also reports chronic right foot pain stemming from a fracture sustained in a fall four months prior, which also resulted in injury to her left foot. She currently ambulates with crutches. Past Medical History: Bipolar disorder Depression/Anxiety Schizophrenia History of suicidal attempts Night terrors Allergies: Amoxicillin (causes armpit rash) Past Surgical History: Four sections Social history: Patient lives by herself. Patient performs ADLs. Patient has a 20-[id number]-zmst smoking history, currently smokes 1 cigarette a day. Occasional alcohol use. Emergency Department Course: Initial vital signs were stable: Temperature 98.2?F, Pulse 77 bpm, Respiratory Rate 18 bpm, Blood Pressure 123/81 mmHg, Oxygen Saturation 98% on room air. A CT abdomen and pelvis was performed, revealing early pancreatitis with inflammation at the pancreatic head. CBC, CMP, and lipase levels were all unremarkable. Gastroenterology was consulted (Dr. Cooley), and an endoscopy is being considered. Patient's pain was controlled with morphine. Review of Systems Review of Systems Narrative Review of Systems: Negative except for the ones mentioned above. Exam Vital Signs Temp Pulse Resp BP Pulse Ox O2 Del Method 98.7 F 107 H 18 131/85 H 99 Room Air 10/12/24 19:10 10/12/24 19:10 10/12/24 19:10 10/12/24 19:10 10/12/24 19:10 10/12/24 19:10 Narrative Exam General: A/O x3, no acute distress, crutches nearby Eyes: PERRLA, EOMI. Anicteric. Ears: No ear pain, no ear discharge, Hearing intact. Nose: No nasal discharge. Mouth/Throat: Moist mucous membranes, no redness, no lesions. Neck: Neck supple, non-tender, no cervical lymphadenopathy. Lungs: GAEB, No accessory muscle use. No crackles or adventitious sounds. Cardio: Normal S1/S2, regular rhythm, no murmurs, no JVD Abdomen: Soft, no distention, tenderness to the epigastric region, no guarding. Grullon sign positive. CVA tenderness particularly on the right side but some on the left Extremities: Symmetrical, no significant deformities, +1 bilat pitting peripheral edema , non-tender Skin: No rashes, no lesions, warm to touch. Neuro: No aphasia, Blind at baseline, no facial asymmetry, moving all 4 limbs well. Psych: Cooperative, no flight of ideas Results: Labs 10/13/24 05:42 10/13/24 05:42 Labs: Short CBC 10/12/24 Range/Units 13:15 WBC 8.2 (3.6-11.0) Thou/mm3 Hgb 13.1 (12.0-16.0) g/dL Hct 38.2 (36.0-46.0) % Plt Count 299 D (140-440) Thou/mm3 BMP 10/12/24 13:15 Sodium 139 Potassium 3.4 Chloride 109 H Carbon Dioxide 19.1 L BUN 7 L Creatinine 0.7 Glucose 80 Calcium 9.8 Liver Function 10/12/24 Range/Units 13:15 Total Bilirubin 0.4 (0.3-1.2) mg/dL AST 31 (0-34) U/L ALT 49 (10-49) U/L Alkaline Phosphatase 64 (46-116) U/L Albumin 3.5 (3.5-5.0) gm/dL Urine 10/12/24 Range/Units 17:20 Urine Color Colorless A (Lt Yel-Yel) Urine Clarity Clear (Clear/Hazy) Urine pH 6.5 (5.0-7.0) Ur Specific [place] 1.040 H (1.001-1.035) Urine Protein Negative (Neg - Trace) Urine Glucose (UA) Negative (Negative) Quality Measures Quality Measures VTE prophylaxis Medications Home Medications and Allergies Home Medications ?Medication ?Instructions ?Recorded ?Confirmed ?Type quetiapine 300 mg tablet 300 mg PO QDAY 07/04/21 04/0 09/19 History topiramate 100 mg tablet 100 mg PO BID 07/04/2110/13 History diphenhydramine HCl 25 mg capsule 25 mg PO BID 5 10/13/24 History (Banophen) gabapentin 100 mg capsule 100 mg PO HS 10/13/24 History levothyroxine 50 mcg tablet 50 mcg PO DAILY 10/13/24 0 10/13/24 History lithium carbonate 300 mg capsule 300 mg PO DAILY 10/1310/13/24 History lurasidone 80 mg tablet 80 mg PO .qEVENING 10/13/24 10/13/24 History paroxetine HCl 20 mg tablet 20 mg PO HS 10/13/2410/13 History prazosin 2 mg capsule 1 mg PO HS 10/13/24 10/13/24 History Allergies Allergy/AdvReac Type Severity Reaction Status Date / Time amoxicillin Allergy Severe RASH TO Verified 09/22/24 11:22 ARMPITS Visit Medications Acetaminophen (Acetaminophen 325 Mg Tablet) 650 mg PO Q6H PRN PRN Reason: PAIN SCALE 1-3 (mild Stop: 11/11/24 18:44 Hydrocodone Bitart/Acetaminophen (Hydrocodone/Apap 5/325 Tablet) 1 tab PO Q4HR PRN PRN Reason: PAIN SCALE 4-6 (Moderate Stop: 10/17/24 18:57 Albuterol/Ipratropium (Albuterol/Ipratropium (Duoneb) Rt Holly 3 Ml Nebu) 3 ml INH Q6HRRT PRN PRN Reason: sob/wheezing Stop: 11/12/24 00:59 Pantoprazole Sodium (Protonix/Ns 80mg Iv Premix) 80 mg in 100 mls @ 10 mls/hr IV Q10H BEATRIZ Stop: 10/15/24 15:55 Last Admin: 10/12/24 18:10 Dose: 10 mls/hr Lactated Ringer's (Lactated Ringers) 1,000 mls @ 150 mls/hr IV .Q6H40M BEATRIZ Stop: 11/11/24 18:44 Levothyroxine Sodium (Levothyroxine Sodium 25 Mcg Tablet) 37.5 mcg PO ACBR BEATRIZ Stop: 11/11/24 19:14 Morphine Sulfate (Morphine Sulf Inj 10 Mg/Ml Vial) 2 mg IVP Q4H PRN PRN Reason: PAIN SCALE 7-10 (Severe Stop: 10/17/24 18:50 Ondansetron HCl (Ondansetron Inj 2 Mg/Ml Inj 2 Ml) 4 mg IVP Q6H PRN; Protocol PRN Reason: NAUSEA OR VOMITING Stop: 11/11/24 18:57 Discontinued Medications Acetaminophen (Acetaminophen 325 Mg Tablet) 650 mg PO Q6H PRN PRN Reason: Fever >101.5 Stop: 11/11/24 18:44 Levothyroxine Sodium (Levothyroxine Sodium 25 Mcg Tablet) 50 mcg PO ACBR BEATRIZ Stop: 11/12/24 05:59 Morphine Sulfate (Morphine Sulf Inj 10 Mg/Ml Vial) 4 mg IVP X1 ONE Stop: 10/12/24 14:38 Last Admin: 10/12/24 15:01 Dose: 4 mg Morphine Sulfate (Morphine Sulf Inj 10 Mg/Ml Vial) 2 mg IVP X1 ONE Stop: 10/12/24 17:57 Last Admin: 10/12/24 18:07 Dose: 2 mg Morphine Sulfate (Morphine Sulf Inj 10 Mg/Ml Vial) 2 mg IVP Q2H PRN PRN Reason: PAIN SCALE 7-10 (Severe Stop: 10/17/24 18:50 Assessment & Plan Plan Assessment: A 44-year-old female with significant psychiatric history for bipolar disorder, depression/anxiety, schizophrenia, night terrors presents to the emergency department with a two-month history of persistent, severe epigastric abdominal pain, accompanied by nausea, vomiting, and diarrhea. Patient has been admitted for workup of active peptic ulcer disease/pancreatitis. #Intractable Nausea/Vomiting 2/2 #Peptic Ulcer Disease # Suspected Pancreatitis Causes of PUD include H. pylori, NSAID use, smoking, EtOH use, Stress, Mukesh-Wyatt syndrome Causes of pancreatitis gallstones, alcohol, hypertriglyceridemia Patient has had epigastric pain for the past 2 months, that has not gotten better, but also has not gotten worse. She feels that the pain is not pain is not being well-managed. CT scan of the abdomen/pelvis: Active peptic disease involving the duodenum. Suspicious for pancreatitis. Consider MRCP follow-up. Small bowel ileus Plan ? IV fluids lactated Ringer's 150 mL an hour ? Pantoprazole 40 mg IV daily ? Hydromorphone 1 mg IV every 4 hours as needed ? Check lipid panel in a.m. - Zofran as needed #Biliary colic #?Cholecystitis Less suspicion for cholangitis at this time as patient does not have elevation in total bilirubin, ALP or liver enzymes. Grullon sign positive No fever.. Vital signs within normal limit. White blood cell count 8.2 Plan ? Right upper quadrant ultrasound for tomorrow ? Dr. Cooley consulted?may do endoscopy ? N.p.o. currently #Chest pain Constant chest pain to the mid sternum ongoing for the past 2 months. Reproducible chest pain when pressed to midsternal. Worse with breathing in and out. Plan ? EKG ordered ? Troponin ordered #Diarrhea Monitor ins and outs #Hypothyroidism Patient's usual dose of levothyroxine is 50 mcg p.o. daily TSH level ordered Resumed levothyroxine at 37.5 mcg IV daily (approximately 70% of patient's usual dosing) #Bipolar disorder [place] level ordered, check level, then resume medication #Depression/anxiety #Schizophrenia ? Resume medications when not n.p.o. Health Maintenance: Diet: N.p.o. GI prophylaxis: Pantoprazole 40 mg daily DVT prophylaxis: Enoxaparin 40 mg subcu daily Antibiotics: None CODE STATUS: Full Disposition: Telemetry Case discussed with my attending Dr. Johnson, and senior resident, Dr. Lisandro Huang MD PGY-1 Attending Provider Attestation/Addendum I, Marley Johnson, DO, attest that I was physically present for the medeiros portions of the service and evaluated the patient with the resident and I reviewed and discussed the case with the resident and agree with the resident's findings and plans of care as documented above Patient is a 44-year-old female with past medical history of psych disorder who presented to the ED with intractable nausea vomiting, as well as epigastric pain. Patient states that she was unable to take any of her mental health medications this morning due to her pain and vomiting. A CT abdomen and pelvis was done in the ED showing active peptic disease involving the duodenum and suspicion for pancreatitis versus small bowel ileus. However, patient states that she had multiple bouts of diarrhea this morning that prompted her to come to the ED in addition to her other symptoms. GI was consulted from ED and recommends placing patient n.p.o. and plan for endoscopy. She does have a positive Grullon sign and is quite tender to palpation. Will start patient on IV fluid hydration and Protonix. Will obtain a gallbladder ultrasound to rule out any cholecystitis or cholelithiasis. However, edema around pancreatic head may be secondary to the peptic ulcer disease involving the duodenum noted on the CT scan. Due to intractable nausea and vomiting and concern for pancreatitis, will admit patient to telemetry for further workup and medical management of pancreatitis. continue with pain control and IV fluid hydration.
[2024-10-12] MEDS: LEVOTHYROXINE SODIUM 25 MCG TABLET 37.5 MCG PO (19:30)
[2024-10-12] MEDS: RINGERS LACTATED 1000 ML 1,000 ML 150 ML IV (19:35)
[2024-10-12 19:53] LABS: Troponin I < 0.002 ng/mL (0.0-0.045)
[2024-10-12 20:01] LABS: Lithium < 0.10 mEq/L (1.00-1.20)
--- NOTE | 2024-10-12 20:16 | XR_ITS ---
Examination: Abdomen sonogram, complete Date and time of exam: October 12, 2024 2040 hours INDICATIONS: Epigastric pain beginning 2 days ago. Technique: Multiple real-time grayscale transabdominal sonographic images of the abdomen have been obtained. Findings: Negative for gallstones Gallbladder wall 0.4 cm no edema Common bile duct 0.2 cm Pancreas is obscured by bowel gas. Proximal aorta visualized nonenlarged Liver 15.7 cm fatty infiltration Normal hepatopedal portal venous flow Patent IVC Right kidney 11.2 cm cortex 1.4 cm Left kidney 11.9 cm cortex 1.6 cm Moderate renal parenchymal scar formation Spleen 10.7 cm IMPRESSION: Negative for cholelithiasis Normal common bile duct Moderate renal parenchymal scar formation
--- NOTE | 2024-10-12 21:51 | PD.IMCONS ---
HPI Data of Consult Requesting Physician: Marley Johnson DO Primary Care Provider: Avinash Patel MD Consult Narrative Reason for consult: Pain abdomen nausea abnormal CTAP History of present illness: 44 years of female brought in by the EMS to the hospital with severe abdominal pain epigastric require progressively getting worse in the past Patient also has psych issues has been on SSRIs lithium and Latuda which she stopped taking because of the severe abdominal pain and nausea and unable and will to keep things down because of vomiting CT scan of the abdomen and pelvis done with contrast showed active peptic ulcer disease in the region of the duodenum and also pancreatitis although her lipase and amylase are normal She does not drink at the moment Ultrasound done on 09/16/2024 was negative for gallstones Lipase today is 30 cc:: cc: Marley Johnson DO Review of Systems Review of Systems Systems Reviewed: All systems reviewed, normal except as documented Past Medical History Surgical History OTHER SURGICAL HX: As in the history of present illness Meds Home Medications and Allergies Home Medications ?Medication ?Instructions ?Recorded ?Confirmed ?Type fluoxetine 20 mg capsule (Prozac) 60 mg PO QAM #0 caps 11/04/16 07/04/21 History quetiapine 300 mg tablet 300 mg PO QDAY 07/04/21 07/04/21 History topiramate 100 mg tablet 100 mg PO BID 07/04/21 07/04/21 History Allergies Allergy/AdvReac Type Severity Reaction Status Date / Time amoxicillin Allergy Severe RASH TO Verified 09/22/24 11:22 ARMPITS Exam Vital Signs Temp Pulse Resp BP Pulse Ox O2 Del Method 98.7 F 85 20 131/85 H 100 Room Air 10/12/24 19:10 10/12/24 20:12 10/12/24 20:12 10/12/24 19:10 10/12/24 20:12 10/12/24 19:10 Constitutional Comments: Chronically ill-appearing Routine Abdominal Exam Comments: Midepigastric tenderness positive bowel sounds Results Labs 10/12/24 13:15 10/12/24 13:15 Labs: Short CBC 10/12/24 Range/Units 13:15 WBC 8.2 (3.6-11.0) Thou/mm3 Hgb 13.1 (12.0-16.0) g/dL Hct 38.2 (36.0-46.0) % Plt Count 299 D (140-440) Thou/mm3 BMP 10/12/24 13:15 Sodium 139 Potassium 3.4 Chloride 109 H Carbon Dioxide 19.1 L BUN 7 L Creatinine 0.7 Glucose 80 Calcium 9.8 Cardiac Enzymes 10/12/24 Range/Units 19:20 Troponin I < 0.002 (0.0-0.045) ng/mL Liver Function 10/12/24 Range/Units 13:15 Total Bilirubin 0.4 (0.3-1.2) mg/dL AST 31 (0-34) U/L ALT 49 (10-49) U/L Alkaline Phosphatase 64 (46-116) U/L Albumin 3.5 (3.5-5.0) gm/dL Urine 10/12/24 Range/Units 17:20 Urine Color Colorless A (Lt Yel-Yel) Urine Clarity Clear (Clear/Hazy) Urine pH 6.5 (5.0-7.0) Ur Specific [place] 1.040 H (1.001-1.035) Urine Protein Negative (Neg - Trace) Urine Glucose (UA) Negative (Negative) Assessment and Plan Additional Assessment & Plan Additional Plan: Pain abdomen epigastric right upper quadrant with abnormal CT scan of the abdomen pelvis showing active peptic ulcer disease and possibility of a pancreatitis Worrisome differential diagnosis include penetrating duodenal ulcer Suggestions Protonix drip at 8 mg/h N.p.o. midnight tonight Consent obtained for fiberoptic esophagogastroduodenoscopy with possible biopsy possible therapeutic intervention under intravenous moderate sedation scheduled for tomorrow morning Serial CBC Repeat amylase and lipase in the morning along with CMP LFTs at the moment normal Thank you very much for the opportunity to participate in the care of this patient
[2024-10-13] VITALS (16 sets, daily range): BP systolic 87–114; BP diastolic 55–70; PULSE 68–93; RESP 12–18; TEMP 36–37; O2SAT 96–100; BMI 26.9
[2024-10-13] MEDS: HYDROmorphone INJ 2 MG/ML VIAL 1 MG IVP ×4 (00:22→19:16)
[2024-10-13] MEDS: RINGERS LACTATED 1000 ML 1,000 ML 150 ML IV ×3 (02:47→23:20)
[2024-10-13 06:30] LABS: Basophils # (Auto) 0.0 Thou/mm3 (0.0-0.2); Basophils % (Auto) 0 % (0-2.5); Eosinophils # (Auto) 0.1 Thou/mm3 (0.0-0.5); Eosinophils % (Auto) 2 % (0-10); Hematocrit 35.6 % (36.0-46.0); Hemoglobin 11.9 g/dL (12.0-16.0); Immature Granulocytes Auto 0.03 Thou/mm3 (0.00-0.00); Lymphocytes # (Auto) 2.7 Thou/mm3 (1.0-4.8); Lymphocytes % (Auto) 39 % (10-50); Mean Corpuscular HGB Conc 33.4 g/dl (31.0-37.0); Mean Corpuscular Hemoglobin 31.2 pg (25.0-35.0); Mean Corpuscular Volume 93 fL (80-100); Monocytes # (Auto) 0.6 Thou/mm3 (0.0-0.8); Monocytes % (Auto) 9 % (0-12); Neutrophils # (Auto) 3.5 Thou/mm3 (1.8-7.7); Neutrophils % (Auto) 50 % (37-80); Nucleated Red Blood Cell # 0.00 Thou/mm3 (0.00-0.00); Nucleated Red Blood Cell % 0 /100 WBC (0); Platelet Count 245 Thou/mm3 (140-440); RDW Standard Deviation 54.8 fL (36.4-46.3); Red Blood Count 3.81 Miln/mm3 (4.00-5.20); White Blood Count 7.0 Thou/mm3 (3.6-11.0)
[2024-10-13 06:51] LABS: Alanine Aminotransferase 31 U/L (10-49); Albumin, Serum 3.2 gm/dL (3.5-5.0); Albumin/Globulin Ratio 1.7 (1.2-2.2); Alkaline Phosphatase 55 U/L (46-116); Anion Gap 7 (7-16); Aspartate Amino Transferase 14 U/L (0-34); BUN/Creatinine Ratio 13 Ratio (12-20); Bilirubin,Total 0.3 mg/dL (0.3-1.2); Blood Urea Nitrogen 8 mg/dL (9-23); Calcium 9.7 mg/dL (8.3-10.6); Calcium (Corrected) 10.3 mg/dL (8.5-10.1); Carbon Dioxide 24.0 mMol/L (20.0-31.0); Cardiac Risk Estimate 5.1 RATIO (3.7-5.6); Chloride 111 mMol/L (98-107); Cholesterol 147 mg/dL (132-200); Creatinine (Component) 0.6 mg/dL (0.6-1.3); Estimated Creatinine Clearance 123.0 mL/min (>60); Globulin 1.9 gm/dL (2.3-3.5); Glucose 93 mg/dL (74-106); HDL Cholesterol 29 mg/dL (40-60); LDL Cholesterol,Calculated 74 mg/dL (0-130); Magnesium 1.5 mg/dL (1.6-2.6); Osmolality,Calculated 281 (275-295); Phosphorous 2.6 mg/dL (2.4-5.1); Potassium 3.4 mMol/L (3.4-5.1); Sodium 142 mMol/L (136-145); Thyroid Stimulating Hormone 10.24 uIU/mL (0.55-4.78); Total Protein 5.1 gm/dL (5.7-8.2); Triglycerides 220 mg/dL (30-150); eGFR > 60 See Note
--- NOTE | 2024-10-13 08:00 | ESPR_ITS ---
<Statement entered by Deonna Mcmahon MD - 10/13/24 22:56> I have reviewed the note and agree with the resident's assessment & plan with exceptions as below. I have personally reviewed labs, imaging, home meds/prior records, examined the patient, formulated and discussed management plan with the IM team. Pt examined at bedside today, pt continuing to improve. Will advance diet, continue with analgesia. Pt to get endoscopy, by Dr. Cooley. GI on consult, appreciate recs. Repeat hematology, chemistry in AM. Deonna Mcmahon, PGY-2 Internal Medicine Documentation for date of: 10/13/24 Subjective Subjective Interval history: Patient seen at bedside. No acute overnight events. Ongoing abdominal pain radiating to the back, which resolved with Dilaudid use as needed. No vomiting episodes, no diarrheal episodes, no shortness of breath. Exam Vital Signs Temp Pulse Resp BP Pulse Ox O2 Del Method 98.0 F 91 15 114/69 97 Room Air 10/13/24 04:00 10/13/24 04:00 10/13/24 04:00 10/13/24 04:00 10/13/24 04:00 10/13/24 04:00 Narrative Exam General: A/O x3, no acute distress, crutches nearby Lungs: GAEB, No accessory muscle use. No crackles or adventitious sounds. Cardio: Normal S1/S2, regular rhythm, no murmurs, no JVD Abdomen: Soft, no distention, tenderness to the epigastric region, no guarding. Psych: Cooperative, no flight of ideas Objective Labs 10/14/24 05:55 10/14/24 05:55 Labs: Laboratory Results - last 24 hr 10/12/24 10/12/24 10/12/24 13:15 17:20 19:20 WBC 8.2 RBC 4.14 Hgb 13.1 Hct 38.2 MCV 92 MCH 31.6 MCHC 34.3 RDW Std Deviation 53.1 H Plt Count 299 D Neut % (Auto) 64 Lymph % (Auto) 26 [place] % (Auto) 8 Eos % (Auto) 2 Baso % (Auto) 1 Neut # (Auto) 5.2 Lymph # (Auto) 2.1 [place] # (Auto) 0.6 Eos # (Auto) 0.1 Baso # (Auto) 0.1 Immature Gran # (Auto) 0.03 H Absolute Nucleated RBC 0.00 Immature Gran % 0 Nucleated RBC % 0 Sodium 139 Potassium 3.4 Chloride 109 H Carbon Dioxide 19.1 L Anion Gap 11 BUN 7 L Creatinine 0.7 Estim Creat Clear Calc 95.0 eGFR > 60 BUN/Creatinine Ratio 10 L Glucose 80 Calculated Osmolality 274 L Calcium 9.8 Corrected Calcium 10.2 H Phosphorus Magnesium Total Bilirubin 0.4 AST 31 ALT 49 Alkaline Phosphatase 64 Troponin I < 0.002 Total Protein 5.8 Albumin 3.5 Globulin 2.3 Albumin/Globulin Ratio 1.5 Triglycerides Cholesterol LDL Cholesterol, Calc HDL Cholesterol Cholesterol/HDL Ratio Lipase 25 TSH HCG, Qual Negative Ur Collection Type Voided Urine Color Colorless A Urine Clarity Clear Urine pH 6.5 Ur Specific [place] 1.040 H Urine Protein Negative Urine Glucose (UA) Negative Urine Ketones 3+ A Urine Blood Negative Urine Nitrite Negative Urine Bilirubin Negative Urine Urobilinogen (Auto) Negative Ur Leukocyte Esterase Negative Urine RBC 1 Urine WBC < 1 Ur Squamous Epith Cells 2 Urine Bacteria None Ur Culture Indicated? Not Indicated [place] < 0.10 L 10/13/24 05:42 WBC 7.0 RBC 3.81 L Hgb 11.9 L Hct 35.6 L MCV 93 MCH 31.2 MCHC 33.4 RDW Std Deviation 54.8 H Plt Count 245 D Neut % (Auto) 50 Lymph % (Auto) 39 [place] % (Auto) 9 Eos % (Auto) 2 Baso % (Auto) 0 Neut # (Auto) 3.5 Lymph # (Auto) 2.7 [place] # (Auto) 0.6 Eos # (Auto) 0.1 Baso # (Auto) 0.0 Immature Gran # (Auto) 0.03 H Absolute Nucleated RBC 0.00 Immature Gran % 0 Nucleated RBC % 0 Sodium 142 Potassium 3.4 Chloride 111 H Carbon Dioxide 24.0 Anion Gap 7 BUN 8 L Creatinine 0.6 Estim Creat Clear Calc 123.0 eGFR > 60 BUN/Creatinine Ratio 13 Glucose 93 Calculated Osmolality 281 Calcium 9.7 Corrected Calcium 10.3 H Phosphorus 2.6 Magnesium 1.5 L Total Bilirubin 0.3 AST 14 ALT 31 Alkaline Phosphatase 55 Troponin I Total Protein 5.1 L Albumin 3.2 L Globulin 1.9 L Albumin/Globulin Ratio 1.7 Triglycerides 220 H Cholesterol 147 LDL Cholesterol, Calc 74 HDL Cholesterol 29 L Cholesterol/HDL Ratio 5.1 Lipase TSH 10.24 H HCG, Qual Ur Collection Type Urine Color Urine Clarity Urine pH Ur Specific [place] Urine Protein Urine Glucose (UA) Urine Ketones Urine Blood Urine Nitrite Urine Bilirubin Urine Urobilinogen (Auto) Ur Leukocyte Esterase Urine RBC Urine WBC Ur Squamous Epith Cells Urine Bacteria Ur Culture Indicated? [place] Quality Measures Quality Measures VTE prophylaxis Assessment & Plan Assessment Current Active Medications: Generic Name Dose Route Start Last Admin Trade Name Freq PRN Reason Stop Dose Admin Acetaminophen 650 mg 10/12/24 18:45 Acetaminophen 325 Mg Tablet PO 11/11/24 18:44 Q6H PRN PAIN SCALE 1-3 (mild Albuterol/Ipratropium 3 ml 10/12/24 19:06 Albuterol/Ipratropium (Duoneb) Rt [place] 3 Ml Nebu INH 11/12/24 00:59 Q6HRRT PRN sob/wheezing Enoxaparin Sodium 40 mg 10/13/24 09:00 Enoxaparin Sod Inj 40 Mg/0.4 Ml Syringe SC 10/27/24 08:59 QDAY BEATRIZ Hydromorphone HCl 1 mg 10/12/24 19:17 10/13/24 05:04 Hydromorphone Inj 2 Mg/Ml Vial IVP 10/17/24 19:13 1 mg Q4HR PRN Administration PAIN SCALE 4-10(Mod-Sev) Lactated Ringer's 1,000 mls @ 150 mls/hr 10/12/24 18:45 10/13/24 02:47 Lactated Ringers IV 11/11/24 18:44 150 mls/hr .Q6H40M BEATRIZ Administration Acetaminophen 1,000 mg in 100 mls @ 250 mls/hr 10/12/24 19:16 Ofirmev Inj IV 10/13/24 12:23 Q6HR PRN Fever, pain mild Levothyroxine Sodium 37.5 mcg 10/12/24 19:30 10/12/24 19:57 Levothyroxine Inj 100 Mcg Vial IV 11/11/24 19:29 Not Given QDAY BEATRIZ Ondansetron HCl 4 mg 10/12/24 18:58 Ondansetron Inj 2 Mg/Ml Inj 2 Ml IVP 11/11/24 18:57 Q6H PRN NAUSEA OR VOMITING Protocol Pantoprazole Sodium 40 mg 10/12/24 19:30 10/12/24 20:05 Pantoprazole Inj 40 Mg Vial IVP 11/11/24 19:29 40 mg QDAY BEATRIZ Administration Plan Assessment: A 44-year-old female with significant psychiatric history for bipolar disorder, depression/anxiety, schizophrenia, night terrors presents to the emergency department with a two-month history of persistent, severe epigastric abdominal pain, accompanied by nausea, vomiting, and diarrhea. Patient has been admitted for workup of active peptic ulcer disease/pancreatitis. #Intractable Nausea/Vomiting 2/2 #Peptic Ulcer Disease #Suspected Pancreatitis Causes of PUD include H. pylori, NSAID use, smoking, EtOH use, Stress, Mukesh-Wyatt syndrome Causes of pancreatitis gallstones, alcohol, hypertriglyceridemia Patient has had epigastric pain for the past 2 months, that has not gotten better, but also has not gotten worse. She feels that the pain is not pain is not being well-managed. CT scan of the abdomen/pelvis: Active peptic disease involving the duodenum. Suspicious for pancreatitis. Consider MRCP follow-up. Small bowel ileus Plan ? IV fluids lactated Ringer's 150 mL an hour ? Pantoprazole 40 mg IV daily ? Hydromorphone 1 mg IV every 4 hours as needed ? Check lipid panel in a.m. - Zofran as needed #Biliary colic #?Cholecystitis Less suspicion for cholangitis at this time as patient does not have elevation in total bilirubin, ALP or liver enzymes. [place]on sign positive No fever.. Vital signs within normal limit. White blood cell count 8.2 Plan ? Right upper quadrant ultrasound for tomorrow ? Dr. Cooley consulted?may do endoscopy ? N.p.o. currently #Hypomagnesemia ? Replete magnesium #Diarrhea Monitor ins and outs #Hypothyroidism Patient's usual dose of levothyroxine is 50 mcg p.o. daily TSH 10.24, free T4 0.91 Resumed levothyroxine at 37.5 mcg IV daily (approximately 70% of patient's usual dosing) #Bipolar disorder [place] level <0.1 ?Resume lithium medication when not n.p.o. #Depression/anxiety #Schizophrenia ? Resume medications when not n.p.o. Health Maintenance: Diet: N.p.o. GI prophylaxis: Pantoprazole 40 mg daily DVT prophylaxis: Enoxaparin 40 mg subcu daily Antibiotics: None CODE STATUS: Full Disposition: Telemetry Case discussed with my attending Dr. Alvarado, and senior resident, Dr. Lisandro Huang MD PGY-1 Attending Provider Attestation/Addendum Patient seen and examined. She complains of abdominal pain. She has low magnesium level. Most likely she has peptic ulcer disease, scheduled for EGD. Continue PPI. Avoid NSAIDs I discussed with and supervised the resident physician who took care of this patient. I agree with the assessment and plan as above.
[2024-10-13 08:32] LABS: Glucose Estimated Average 85 mg/dL (80-131); Hemoglobin A1C 4.6 % Hgb (4.8-6.0)
[2024-10-13 08:34] LABS: Amylase 30 U/L (30-118); Free T4 (Free Thyroxine) 0.91 ng/dL (0.89-1.76); Lipase 24 U/L (12-53)
[2024-10-13 09:05] LABS: INR 1.0 (0.9-1.3); Prothrombin Time 11.2 Seconds (9.0-12.2)
[2024-10-13] MEDS: Magnesium Sulfate 2 GM Ivpb 2 GM/50 ML BAG IV (09:37)
[2024-10-13] MEDS: ENOXAPARIN SOD INJ 40 MG/0.4 ML SYRINGE SC (09:37)
--- NOTE | 2024-10-13 12:26 | PC.SS ---
SS met with patient who is alert/oriented. Patient was able to verify demographics. Patient states she resides alone. She states she is independent with ADL's. Patient states she does not have a cell phone. SS asked patient who she would like to designate as her alt medical decision maker and patient states nobody. She refused to answer. She stated she did not have family. Patient was admitted for pancreatitis. Patient states she does not drive but takes the public transit to all appointments. Patient does not use any DME besides her crutches. Pharmacy: [facility]. PCP: EILEEN with Dr. Patel. Last appt. was a few months ago. SS asked patient if she had any history of mental illness. Patient responded she has Schizophrenia, bipolar, and depression. She follows with her psychiatrist, Dr. Muñoz, with [facility]. Patient follows with a caser shoe parts with the [facility] once a month but could not recall his name. Discharge plan is to return home. No alt medical decision maker noted from patient D/c plan: return home transportation: [facility]
[2024-10-13] MEDS: ACETAMINOPHEN IVPB 1,000 MG/100 ML VIAL 250 MG IV (14:13)
[2024-10-13] MEDS: ONDANSETRON INJ 2 MG/ML INJ 2 ML 4 MG IVP (19:29)
--- NOTE | 2024-10-13 22:22 | SUR.PHASEI ---
2222 Patient arrived to recovery resting comfortably in [facility], oxygen 4L via nasal cannula initiated, breathing unlabored, vital signs stable, denies pain and nausea, report received from Raquel GUTIERREZ
--- NOTE | 2024-10-13 22:35 | SUR.PHASEI ---
2239 patient sitting up in bed drinking water; tolerating well
--- NOTE | 2024-10-13 22:57 | SUR.PHASEI ---
2253 Report given to Fe GUTIERREZ, patient meets discharge criteria from recovery, awake and eating jello, tolerating well, denies nausea, breathing unlabored, vital signs stable, denies pain, dressing intact; no bleeding noted. 2257 Patient transported via gurney to room 264 without incident, patient requested to use the restroom, with stand-by assisted patient escorted to the restroom by this insurance underwriter, COMPUTER SYSTEMS AUDITOR arrived to room and assume standby with patient as patient was still using the restroom, when this insurance underwriter left patients room.
[2024-10-13] MEDS: MG HYD/AL HYD/SIME (Maalox Reg) SUSP 30 ML UDC 15 ML PO (23:19)
[2024-10-14] VITALS (10 sets, daily range): BP systolic 90–111; BP diastolic 57–73; PULSE 70–92; RESP 17–24; TEMP 36.1–36.6; O2SAT 93–99; BMI 26.9
[2024-10-14] MEDS: HYDROmorphone INJ 2 MG/ML VIAL 1 MG IVP ×5 (01:44→23:08)
[2024-10-14] MEDS: SUCRALFATE SUSP 1 GM/10 ML UDC PO ×4 (05:29→21:05)
[2024-10-14] MEDS: MG HYD/AL HYD/SIME (Maalox Reg) SUSP 30 ML UDC 15 ML PO ×4 (05:29→23:08)
[2024-10-14 06:20] LABS: Basophils # (Auto) 0.0 Thou/mm3 (0.0-0.2); Basophils % (Auto) 1 % (0-2.5); Eosinophils # (Auto) 0.1 Thou/mm3 (0.0-0.5); Eosinophils % (Auto) 2 % (0-10); Hematocrit 32.6 % (36.0-46.0); Hemoglobin 10.8 g/dL (12.0-16.0); Immature Granulocytes Auto 0.02 Thou/mm3 (0.00-0.00); Lymphocytes # (Auto) 2.5 Thou/mm3 (1.0-4.8); Lymphocytes % (Auto) 42 % (10-50); Mean Corpuscular HGB Conc 33.1 g/dl (31.0-37.0); Mean Corpuscular Hemoglobin 31.5 pg (25.0-35.0); Mean Corpuscular Volume 95 fL (80-100); Monocytes # (Auto) 0.6 Thou/mm3 (0.0-0.8); Monocytes % (Auto) 10 % (0-12); Neutrophils # (Auto) 2.8 Thou/mm3 (1.8-7.7); Neutrophils % (Auto) 46 % (37-80); Nucleated Red Blood Cell # 0.00 Thou/mm3 (0.00-0.00); Nucleated Red Blood Cell % 0 /100 WBC (0); Platelet Count 286 Thou/mm3 (140-440); RDW Standard Deviation 56.6 fL (36.4-46.3); Red Blood Count 3.43 Miln/mm3 (4.00-5.20); White Blood Count 6.0 Thou/mm3 (3.6-11.0)
[2024-10-14 06:47] LABS: Alanine Aminotransferase 23 U/L (10-49); Albumin, Serum 2.9 gm/dL (3.5-5.0); Albumin/Globulin Ratio 1.6 (1.2-2.2); Alkaline Phosphatase 49 U/L (46-116); Anion Gap 9 (7-16); Aspartate Amino Transferase 14 U/L (0-34); BUN/Creatinine Ratio 10 Ratio (12-20); Bilirubin,Total 0.2 mg/dL (0.3-1.2); Blood Urea Nitrogen 5 mg/dL (9-23); Calcium 8.8 mg/dL (8.3-10.6); Calcium (Corrected) 9.7 mg/dL (8.5-10.1); Carbon Dioxide 23.7 mMol/L (20.0-31.0); Chloride 112 mMol/L (98-107); Creatinine (Component) 0.5 mg/dL (0.6-1.3); Estimated Creatinine Clearance 147.6 mL/min (>60); Globulin 1.8 gm/dL (2.3-3.5); Glucose 117 mg/dL (74-106); Magnesium 1.4 mg/dL (1.6-2.6); Osmolality,Calculated 286 (275-295); Phosphorous 2.0 mg/dL (2.4-5.1); Potassium 3.5 mMol/L (3.4-5.1); Sodium 145 mMol/L (136-145); Total Protein 4.7 gm/dL (5.7-8.2); eGFR > 60 See Note
[2024-10-14] MEDS: RINGERS LACTATED 1000 ML 1,000 ML 150 ML IV ×3 (06:49→17:50)
[2024-10-14] MEDS: ENOXAPARIN SOD INJ 40 MG/0.4 ML SYRINGE SC (08:34)
[2024-10-14] MEDS: LITHIUM CARB 150 MG CAPSULE 300 MG PO (08:34)
[2024-10-14] MEDS: TOPIRAMATE 100 MG TABLET PO ×2 (08:34→21:05)
[2024-10-14] MEDS: Magnesium Sulfate 2 GM Ivpb 2 GM/50 ML BAG IV (08:35)
--- NOTE | 2024-10-14 08:48 | ESPR_ITS ---
<Statement entered by Deonna Mcmahon MD - 10/15/24 09:58> I have reviewed the note and agree with the resident's assessment & plan with exceptions as below. I have personally reviewed labs, imaging, home meds/prior records, examined the patient, formulated and discussed management plan with the IM team. Pt examined at bedside today.. She is reporting of some hip pain on the R side, however, denies having a fall. GI recommends surgical consult as pt has a ulcer that can perforate seen on EGD. Will order abdominal xray to rule out any perf, however her abd exam was benign today. F/u imaging, repeat hematology and chemistry in AM. Deonna Mcmahon, PGY-2 Internal Medicine Documentation for date of: 10/14/24 Subjective Subjective Interval history: Patient seen at bedside. No acute overnight events. Ongoing abdominal pain radiating to the back, which resolved with Dilaudid use as needed. Right hip pain acutely worse today. No vomiting episodes, no diarrheal episodes, no shortness of breath. Exam Vital Signs Temp Pulse Resp BP Pulse Ox O2 Del Method O2 Flow Rate 97.0 F 92 18 109/71 99 Room Air 2 10/14/24 03:55 10/14/24 04:00 10/14/24 03:55 10/14/24 03:55 10/14/24 03:55 10/14/24 03:55 10/13/24 22:37 Narrative Exam General: A/O x3, no acute distress, crutches nearby Lungs: GAEB, No accessory muscle use. No crackles or adventitious sounds. Cardio: Normal S1/S2, regular rhythm, no murmurs, no JVD Abdomen: Soft, no distention, tenderness to the epigastric region, no guarding. Psych: Cooperative, no flight of idea Objective Labs 10/15/24 05:51 10/15/24 05:51 Labs: Laboratory Results - last 24 hr 10/13/24 10/14/24 05:42 05:55 WBC 6.0 RBC 3.43 L Hgb 10.8 L Hct 32.6 L MCV 95 MCH 31.5 MCHC 33.1 RDW Std Deviation 56.6 H Plt Count 286 D Neut % (Auto) 46 Lymph % (Auto) 42 [place] % (Auto) 10 Eos % (Auto) 2 Baso % (Auto) 1 Neut # (Auto) 2.8 Lymph # (Auto) 2.5 [place] # (Auto) 0.6 Eos # (Auto) 0.1 Baso # (Auto) 0.0 Immature Gran # (Auto) 0.02 H Absolute Nucleated RBC 0.00 Immature Gran % 0 Nucleated RBC % 0 PT 11.2 INR 1.0 Sodium 145 Potassium 3.5 Chloride 112 H Carbon Dioxide 23.7 Anion Gap 9 BUN 5 L Creatinine 0.5 L Estim Creat Clear Calc 147.6 eGFR > 60 BUN/Creatinine Ratio 10 L Glucose 117 H Calculated Osmolality 286 Calcium 8.8 Corrected Calcium 9.7 Phosphorus 2.0 L Magnesium 1.4 L Total Bilirubin 0.2 L AST 14 ALT 23 Alkaline Phosphatase 49 Total Protein 4.7 L Albumin 2.9 L Globulin 1.8 L Albumin/Globulin Ratio 1.6 Quality Measures Quality Measures VTE prophylaxis Assessment & Plan Assessment Current Active Medications: Generic Name Dose Route Start Last Admin Trade Name Freq PRN Reason Stop Dose Admin Acetaminophen 650 mg 10/12/24 18:45 Acetaminophen 325 Mg Tablet PO 11/11/24 18:44 Q6H PRN PAIN SCALE 1-3 (mild Al Hydrox/Mg Hydrox/Simethicone 15 ml 10/14/24 00:00 10/14/24 05:29 Mg Hyd/Al Hyd/Ivory (Maalox Reg) Susp 30 Ml Udc PO 11/13/24 00:00 15 ml Q6HR BEATRIZ Administration Albuterol/Ipratropium 3 ml 10/12/24 19:06 Albuterol/Ipratropium (Duoneb) Rt Holly 3 Ml Nebu INH 11/12/24 00:59 Q6HRRT PRN sob/wheezing Enoxaparin Sodium 40 mg 10/13/24 09:00 10/14/24 08:34 Enoxaparin Sod Inj 40 Mg/0.4 Ml Syringe SC 10/27/24 08:59 40 mg QDAY BEATRIZ Administration Hydromorphone HCl 1 mg 10/12/24 19:17 10/14/24 06:43 Hydromorphone Inj 2 Mg/Ml Vial IVP 10/17/24 19:13 1 mg Q4HR PRN Administration PAIN SCALE 4-10(Mod-Sev) Lactated Ringer's 1,000 mls @ 150 mls/hr 10/12/24 18:45 10/14/24 06:49 Lactated Ringers IV 11/11/24 18:44 150 mls/hr .Q6H40M BEATRIZ Administration Magnesium Sulfate 2 gm in 50 mls @ 25 mls/hr 10/14/24 08:16 10/14/24 08:35 Magnesium Sulfate Ivpb IV 10/14/24 10:15 25 mls/hr X1 ONE Administration Levothyroxine Sodium 37.5 mcg 10/12/24 19:30 10/14/24 08:33 Levothyroxine Inj 100 Mcg Vial IV 11/11/24 19:29 37.5 mcg QDAY BEATRIZ Administration [place] Carbonate 300 mg 10/14/24 09:00 10/14/24 08:34 [place] Carb 150 Mg Capsule PO 11/13/24 08:59 300 mg DAILY BEATRIZ Administration Lurasidone HCl 80 mg 10/15/24 21:00 Lurasidone Hcl 20 Mg Tablet (Non-Formulary) PO 11/14/24 20:59 HS BEATRIZ Protocol Ondansetron HCl 4 mg 10/12/24 18:58 10/13/24 19:29 Ondansetron Inj 2 Mg/Ml Inj 2 Ml IVP 11/11/24 18:57 4 mg Q6H PRN Administration NAUSEA OR VOMITING Protocol Pantoprazole Sodium 40 mg 10/12/24 19:30 10/14/24 08:33 Pantoprazole Inj 40 Mg Vial IVP 11/11/24 19:29 40 mg QDAY BEATRIZ Administration Sucralfate 1 gm 10/14/24 06:00 10/14/24 05:29 Sucralfate Susp 1 Gm/10 Ml Udc PO 11/13/24 05:59 1 gm QID BEATRIZ Administration Topiramate 100 mg 10/14/24 09:00 10/14/24 08:34 Topiramate 100 Mg Tablet PO 11/13/24 08:59 100 mg BID BEATRIZ Administration Plan Assessment: A 44-year-old female with significant psychiatric history for bipolar disorder, depression/anxiety, schizophrenia, night terrors presents to the emergency department with a two-month history of persistent, severe epigastric abdominal pain, accompanied by nausea, vomiting, and diarrhea. Patient has been admitted for workup of active peptic ulcer disease/pancreatitis. #Intractable Nausea/Vomiting 2/2 #Peptic Ulcer Disease #Suspected Pancreatitis Causes of PUD include H. pylori, NSAID use, smoking, EtOH use, Stress, Mukesh-Wyatt syndrome Causes of pancreatitis gallstones, alcohol, hypertriglyceridemia Patient has had epigastric pain for the past 2 months, that has not gotten better, but also has not gotten worse. She feels that the pain is not pain is not being well-managed. CT scan of the abdomen/pelvis: Active peptic disease involving the duodenum. Suspicious for pancreatitis. Consider MRCP follow-up. Small bowel ileus EGD 10/13/2024: Gastritis (Biopsies performed in the gastric antrum and in the cardia) Non-bleeding duodenal ulcer with a clean ulcer base (Chu Class III). Abdominal x-ray 10/14/2024: Mild small bowel ileus, no obstruction, moderate stool throughout the colon Plan ?General Surgery consult due to penetrating duodenal ulcer likely causing pancreatitis and risk of perforation is quite high ?Await pathology results ? IV fluids lactated Ringer's 150 mL an hour ? Pantoprazole 40 mg IV daily ? Hydromorphone 1 mg IV every 4 hours as needed ? Check lipid panel in a.m. - Zofran as needed #Biliary colic #?Cholecystitis Less suspicion for cholangitis at this time as patient does not have elevation in total bilirubin, ALP or liver enzymes. [place] sign positive No fever.. Vital signs within normal limit. White blood cell count 8.2 Plan ? Right upper quadrant ultrasound for tomorrow ? Dr. Cooley consulted?may do endoscopy ? N.p.o. currently #Right hip pain Hip x-ray 10/14/2024: Minimal bilateral hip osteoarthritis, no fracture or dislocation ?Monitor ?Treat pain as necessary Constipation ? MiraLAX 17 g daily #Hypothyroidism Patient's usual dose of levothyroxine is 50 mcg p.o. daily TSH 10.24, free T4 0.91 ?Switch to levothyroxine p.o. 50 mcg daily as per home med #Bipolar disorder [place] level <0.1 ? Resumed lithium carbonate 300 mg daily #Depression/anxiety #Schizophrenia ? Resumed lurasidone 80 mg daily ? Resume topiramate 100 mg twice daily Health Maintenance: Diet: Full diabetic diet GI prophylaxis: Pantoprazole 40 mg daily DVT prophylaxis: Enoxaparin 40 mg subcu daily Antibiotics: None CODE STATUS: Full Disposition: Telemetry Case discussed with my attending Dr. Alvarado, and senior resident, Dr. Lisandro Huang MD PGY-1 Attending Provider Attestation/Addendum Patient complains of epigastric pain. Dr. Cooley mentioned that he suspects proliferating duodenal ulcer. Surgical evaluation requested by house Abdominal x-ray showed mild ileus. I discussed with and supervised the resident physician who took care of this patient. I agree with the assessment and plan as above.
--- NOTE | 2024-10-14 10:29 | XR_ITS ---
Examination: Abdomen AP single view Technique: AP portable supine abdomen, single view Exam date and time: October 14, 2024 1034 hours INDICATIONS: Abdominal pain today. FINDINGS: Moderate stool throughout the colon Mild small bowel ileus. No obstruction IMPRESSION: Mild small bowel ileus
--- NOTE | 2024-10-14 10:32 | XR_ITS ---
Examination:Right hip AP, lateral, AP pelvis 3 views Technique: Hip AP lateral, AP pelvis, 3 views Exam date and time:October 14, 2024 1040 hours INDICATIONS:. Right hip pain today FINDINGS: Minimal bilateral hip osteoarthritis No right or left hip fracture or dislocation Bones of the pelvis intact IMPRESSION: Minimal bilateral hip osteoarthritis
[2024-10-14] MEDS: POLYETHYLENE GLYCOL 17 GM PACKET PO (17:44)
--- NOTE | 2024-10-14 18:01 | ESPR_ITS ---
Documentation for date of: 10/14/24 Subjective Subjective Interval history: Patient evaluated Hemoglobin hematocrit 10.8 and 32.6 Upper endoscopy showed duodenal ulcer gastritis and esophagitis Downward trending hemoglobin hematocrit Repeat CBC in the morning Exam Vital Signs Temp Pulse Resp BP Pulse Ox O2 Del Method O2 Flow Rate 97.0 F 72 18 93/57 L 96 Room Air 2 10/14/24 12:00 10/14/24 15:11 10/14/24 15:11 10/14/24 12:00 10/14/24 15:11 10/14/24 12:00 10/13/24 22:37 Objective Labs 10/14/24 05:55 10/14/24 05:55 Labs: Laboratory Results - last 24 hr 10/14/24 05:55 WBC 6.0 RBC 3.43 L Hgb 10.8 L Hct 32.6 L MCV 95 MCH 31.5 MCHC 33.1 RDW Std Deviation 56.6 H Plt Count 286 D Neut % (Auto) 46 Lymph % (Auto) 42 [place] % (Auto) 10 Eos % (Auto) 2 Baso % (Auto) 1 Neut # (Auto) 2.8 Lymph # (Auto) 2.5 [place] # (Auto) 0.6 Eos # (Auto) 0.1 Baso # (Auto) 0.0 Immature Gran # (Auto) 0.02 H Absolute Nucleated RBC 0.00 Immature Gran % 0 Nucleated RBC % 0 Sodium 145 Potassium 3.5 Chloride 112 H Carbon Dioxide 23.7 Anion Gap 9 BUN 5 L Creatinine 0.5 L Estim Creat Clear Calc 147.6 eGFR > 60 BUN/Creatinine Ratio 10 L Glucose 117 H Calculated Osmolality 286 Calcium 8.8 Corrected Calcium 9.7 Phosphorus 2.0 L Magnesium 1.4 L Total Bilirubin 0.2 L AST 14 ALT 23 Alkaline Phosphatase 49 Total Protein 4.7 L Albumin 2.9 L Globulin 1.8 L Albumin/Globulin Ratio 1.6 Impressions Impression: Gastritis Duodenal ulcer Esophagitis Continue to monitor CBC Continue IV Protonix Assessment & Plan A&P Narrative Pain abdomen epigastric right upper quadrant with abnormal CT scan of the abdomen pelvis showing active peptic ulcer disease and possibility of a pancreatitis Worrisome differential diagnosis include penetrating duodenal ulcer Suggestions Protonix drip at 8 mg/h N.p.o. midnight tonight Consent obtained for fiberoptic esophagogastroduodenoscopy with possible biopsy possible therapeutic intervention under intravenous moderate sedation scheduled for tomorrow morning Serial CBC Repeat amylase and lipase in the morning along with CMP LFTs at the moment normal Thank you very much for the opportunity to participate in the care of this patient Time Spent With Patient Time: Total time spent is greater than 50% in coordination of care (as documented) at patient's floor/unit and/or counseling patient:
[2024-10-15] VITALS (9 sets, daily range): BP systolic 101–133; BP diastolic 54–80; PULSE 69–84; RESP 14–18; TEMP 36.1–36.6; O2SAT 96–99; BMI 26.9; BMI 26.7
[2024-10-15] MEDS: RINGERS LACTATED 1000 ML 1,000 ML 150 ML IV ×2 (00:56→09:15)
[2024-10-15] MEDS: MG HYD/AL HYD/SIME (Maalox Reg) SUSP 30 ML UDC 15 ML PO ×4 (06:12→23:46)
[2024-10-15] MEDS: SUCRALFATE SUSP 1 GM/10 ML UDC PO ×4 (06:12→20:31)
[2024-10-15] MEDS: LEVOTHYROXINE SODIUM 25 MCG TABLET 50 MCG PO (06:12)
[2024-10-15] MEDS: HYDROmorphone INJ 2 MG/ML VIAL 1 MG IVP ×4 (06:23→20:32)
[2024-10-15 06:24] LABS: Basophils # (Auto) 0.0 Thou/mm3 (0.0-0.2); Basophils % (Auto) 1 % (0-2.5); Eosinophils # (Auto) 0.1 Thou/mm3 (0.0-0.5); Eosinophils % (Auto) 1 % (0-10); Hematocrit 32.2 % (36.0-46.0); Hemoglobin 10.5 g/dL (12.0-16.0); Immature Granulocytes Auto 0.02 Thou/mm3 (0.00-0.00); Lymphocytes # (Auto) 1.9 Thou/mm3 (1.0-4.8); Lymphocytes % (Auto) 36 % (10-50); Mean Corpuscular HGB Conc 32.6 g/dl (31.0-37.0); Mean Corpuscular Hemoglobin 31.3 pg (25.0-35.0); Mean Corpuscular Volume 96 fL (80-100); Monocytes # (Auto) 0.6 Thou/mm3 (0.0-0.8); Monocytes % (Auto) 10 % (0-12); Neutrophils # (Auto) 2.7 Thou/mm3 (1.8-7.7); Neutrophils % (Auto) 51 % (37-80); Nucleated Red Blood Cell # 0.00 Thou/mm3 (0.00-0.00); Nucleated Red Blood Cell % 0 /100 WBC (0); Platelet Count 228 Thou/mm3 (140-440); RDW Standard Deviation 58.1 fL (36.4-46.3); Red Blood Count 3.36 Miln/mm3 (4.00-5.20); White Blood Count 5.3 Thou/mm3 (3.6-11.0)
[2024-10-15 07:19] LABS: Alanine Aminotransferase 18 U/L (10-49); Albumin, Serum 3.0 gm/dL (3.5-5.0); Albumin/Globulin Ratio 1.6 (1.2-2.2); Alkaline Phosphatase 48 U/L (46-116); Anion Gap 7 (7-16); Aspartate Amino Transferase 10 U/L (0-34); BUN/Creatinine Ratio 14 Ratio (12-20); Bilirubin,Total < 0.2 mg/dL (0.3-1.2); Blood Urea Nitrogen 7 mg/dL (9-23); Calcium 9.4 mg/dL (8.3-10.6); Calcium (Corrected) 10.2 mg/dL (8.5-10.1); Carbon Dioxide 25.7 mMol/L (20.0-31.0); Chloride 111 mMol/L (98-107); Creatinine (Component) 0.5 mg/dL (0.6-1.3); Estimated Creatinine Clearance 147.6 mL/min (>60); Globulin 1.9 gm/dL (2.3-3.5); Glucose 93 mg/dL (74-106); Magnesium 2.2 mg/dL (1.6-2.6); Osmolality,Calculated 284 (275-295); Phosphorous 2.9 mg/dL (2.4-5.1); Potassium 4.3 mMol/L (3.4-5.1); Sodium 144 mMol/L (136-145); Total Protein 4.9 gm/dL (5.7-8.2); eGFR > 60 See Note
[2024-10-15] MEDS: LITHIUM CARB 150 MG CAPSULE 300 MG PO (09:17)
[2024-10-15] MEDS: ENOXAPARIN SOD INJ 40 MG/0.4 ML SYRINGE SC (09:17)
[2024-10-15] MEDS: TOPIRAMATE 100 MG TABLET PO ×2 (09:17→20:31)
[2024-10-15] MEDS: POLYETHYLENE GLYCOL 17 GM PACKET PO (09:17)
--- NOTE | 2024-10-15 10:23 | ESPR_ITS ---
<Statement entered by Deonna Mcmahon MD - 10/15/24 19:37> I have reviewed the note and agree with the resident's assessment & plan with exceptions as below. I have personally reviewed labs, imaging, home meds/prior records, examined the patient, formulated and discussed management plan with the IM team. Pt examined at bedside today. Pt continues to improve and tolerate PO. Will advance diet with PUD diet. General surgery seen pt, does not recommend anything surgical at this time. Pt found to have slightly elevated corrected Calcium at 10.2, will order PTH and Vitamin D, and curbside Endo. This could be also related to [place] use. Continuing multi-modal analgesia, repeat hematology and chemistry in AM. Anticipate d/c within next 24-48 hours. Deonna Mcmahon, PGY-2 Internal Medicine Documentation for date of: 10/15/24 Subjective Subjective Interval history: Patient seen at bedside. No acute overnight events. Ongoing abdominal pain radiating to the back, which resolved with Dilaudid use as needed. No vomiting episodes, no diarrheal episodes, no shortness of breath. Exam Vital Signs Temp Pulse Resp BP Pulse Ox O2 Del Method O2 Flow Rate 97.5 F 71 17 133/80 H 99 Room Air 2 10/15/24 08:00 10/15/24 08:00 10/15/24 08:00 10/15/24 08:00 10/15/24 08:00 10/15/24 08:00 10/13/24 22:37 Narrative Exam General: A/O x3, no acute distress, crutches nearby Eyes: PERRLA, EOMI. Anicteric. Ears: No ear pain, no ear discharge, Hearing intact. Nose: No nasal discharge. Mouth/Throat: Moist mucous membranes, no redness, no lesions. Neck: Neck supple, non-tender, no cervical lymphadenopathy. Lungs: GAEB, No accessory muscle use. No crackles or adventitious sounds. Cardio: Normal S1/S2, regular rhythm, no murmurs, no JVD Abdomen: Soft, no distention, tenderness to the epigastric region, no guarding. Extremities: Symmetrical, no significant deformities, +1 bilat pitting peripheral edema , non-tender Skin: No rashes, no lesions, warm to touch. Neuro: No aphasia, Blind at baseline, no facial asymmetry, moving all 4 limbs well. Psych: Cooperative, no flight of ideas Objective Labs 10/15/24 05:51 10/15/24 05:51 Labs: Laboratory Results - last 24 hr 10/15/24 05:51 WBC 5.3 RBC 3.36 L Hgb 10.5 L Hct 32.2 L MCV 96 MCH 31.3 MCHC 32.6 RDW Std Deviation 58.1 H Plt Count 228 D Neut % (Auto) 51 Lymph % (Auto) 36 [place] % (Auto) 10 Eos % (Auto) 1 Baso % (Auto) 1 Neut # (Auto) 2.7 Lymph # (Auto) 1.9 [place] # (Auto) 0.6 Eos # (Auto) 0.1 Baso # (Auto) 0.0 Immature Gran # (Auto) 0.02 H Absolute Nucleated RBC 0.00 Immature Gran % 0 Nucleated RBC % 0 Sodium 144 Potassium 4.3 D Chloride 111 H Carbon Dioxide 25.7 Anion Gap 7 BUN 7 L Creatinine 0.5 L Estim Creat Clear Calc 147.6 eGFR > 60 BUN/Creatinine Ratio 14 Glucose 93 Calculated Osmolality 284 Calcium 9.4 Corrected Calcium 10.2 H Phosphorus 2.9 Magnesium 2.2 Total Bilirubin < 0.2 L AST 10 ALT 18 Alkaline Phosphatase 48 Total Protein 4.9 L Albumin 3.0 L Globulin 1.9 L Albumin/Globulin Ratio 1.6 Quality Measures Quality Measures VTE prophylaxis Assessment & Plan Assessment Current Active Medications: Generic Name Dose Route Start Last Admin Trade Name Freq PRN Reason Stop Dose Admin Acetaminophen 650 mg 10/12/24 18:45 Acetaminophen 325 Mg Tablet PO 11/11/24 18:44 Q6H PRN PAIN SCALE 1-3 (mild Al Hydrox/Mg Hydrox/Simethicone 15 ml 10/14/24 00:00 10/15/24 06:12 Mg Hyd/Al Hyd/Ivory (Maalox Reg) Susp 30 Ml Udc PO 11/13/24 00:00 15 ml Q6HR BEATRIZ Administration Albuterol/Ipratropium 3 ml 10/12/24 19:06 Albuterol/Ipratropium (Duoneb) Rt [place] 3 Ml Nebu INH 11/12/24 00:59 Q6HRRT PRN sob/wheezing Enoxaparin Sodium 40 mg 10/13/24 09:00 10/15/24 09:17 Enoxaparin Sod Inj 40 Mg/0.4 Ml Syringe SC 10/27/24 08:59 40 mg QDAY BEATRIZ Administration Hydromorphone HCl 1 mg 10/12/24 19:17 10/15/24 06:23 Hydromorphone Inj 2 Mg/Ml Vial IVP 10/17/24 19:13 1 mg Q4HR PRN Administration PAIN SCALE 4-10(Mod-Sev) Lactated Ringer's 1,000 mls @ 100 mls/hr 10/15/24 10:18 Lactated Ringers IV 11/14/24 10:17 .Q10H BEATRIZ Levothyroxine Sodium 50 mcg 10/15/24 06:00 10/15/24 06:12 Levothyroxine Sodium 25 Mcg Tablet PO 11/14/24 05:59 50 mcg ACBR BEATRIZ Administration [place] Carbonate 300 mg 10/14/24 09:00 10/15/24 09:17 [place] Carb 150 Mg Capsule PO 11/13/24 08:59 300 mg DAILY BEATRIZ Administration Lurasidone HCl 80 mg 10/15/24 21:00 Lurasidone Hcl 20 Mg Tablet (Non-Formulary) PO 11/14/24 20:59 HS BEATRIZ Protocol Ondansetron HCl 4 mg 10/12/24 18:58 10/13/24 19:29 Ondansetron Inj 2 Mg/Ml Inj 2 Ml IVP 11/11/24 18:57 4 mg Q6H PRN Administration NAUSEA OR VOMITING Protocol Pantoprazole Sodium 40 mg 10/12/24 19:30 10/15/24 09:17 Pantoprazole Inj 40 Mg Vial IVP 11/11/24 19:29 40 mg QDAY BEATRIZ Administration Polyethylene Glycol 17 gm 10/14/24 17:30 10/15/24 09:17 Polyethylene Glycol 17 Gm Packet PO 11/13/24 17:29 17 gm QDAY BEATRIZ Administration Sucralfate 1 gm 10/14/24 06:00 10/15/24 06:12 Sucralfate Susp 1 Gm/10 Ml Udc PO 11/13/24 05:59 1 gm QID BEATRIZ Administration Topiramate 100 mg 10/14/24 09:00 10/15/24 09:17 Topiramate 100 Mg Tablet PO 11/13/24 08:59 100 mg BID BEATRIZ Administration Plan Assessment: A 44-year-old female with significant psychiatric history for bipolar disorder, depression/anxiety, schizophrenia, night terrors presents to the emergency department with a two-month history of persistent, severe epigastric abdominal pain, accompanied by nausea, vomiting, and diarrhea. Patient has been admitted for workup of active peptic ulcer disease/pancreatitis. #Intractable Nausea/Vomiting 2/2 #Peptic Ulcer Disease #Suspected Pancreatitis Causes of PUD include H. pylori, NSAID use, smoking, EtOH use, Stress, Mukesh-Wyatt syndrome Causes of pancreatitis gallstones, alcohol, hypertriglyceridemia Patient has had epigastric pain for the past 2 months, that has not gotten better, but also has not gotten worse. She feels that the pain is not pain is not being well-managed. CT scan of the abdomen/pelvis: Active peptic disease involving the duodenum. Suspicious for pancreatitis. Consider MRCP follow-up. Small bowel ileus EGD 10/13/2024: Gastritis (Biopsies performed in the gastric antrum and in the cardia) Non-bleeding duodenal ulcer with a clean ulcer base (Chu Class III). Abdominal x-ray 10/14/2024: Mild small bowel ileus, no obstruction, moderate stool throughout the colon Dr. Lopez assessed patient and does not believe patient has pancreatitis, edema around the head of pancreas and duodenal bulb likely from active peptic ulcer disease and then pancreatitis. Plan ? Await pathology results ? IV fluids lactated Ringer's 150 mL an hour ? Increased Pantoprazole to 40 mg IV BID ? Hydromorphone 1 mg IV every 4 hours as needed ? Check lipid panel in a.m. ? Zofran as needed #Mild Primary Hyperparathyroidism PTH 61.2 Ca 10.2 - mild elevation Phos Vit D 49.2 (normal sufficency) Calcium on high end, PTH on higher end of assay, vit D and kidney function normal Plan - Outpatient F/U for further investigation with imaging #Biliary colic #?Cholecystitis Less suspicion for cholangitis at this time as patient does not have elevation in total bilirubin, ALP or liver enzymes. [place] sign positive No fever. Vital signs within normal limit. White blood cell count 8.2 Plan ? Right upper quadrant ultrasound for tomorrow ? Dr. Cooley consulted?may do endoscopy ? N.p.o. currently #Right hip pain Hip x-ray 10/14/2024: Minimal bilateral hip osteoarthritis, no fracture or dislocation ? Monitor ? Treat pain as necessary Constipation ? MiraLAX 17 g daily #Hypothyroidism Patient's usual dose of levothyroxine is 50 mcg p.o. daily TSH 10.24, free T4 0.91 ? Switch to levothyroxine p.o. 50 mcg daily as per home med #Bipolar disorder [place] level <0.1 ? Resumed lithium carbonate 300 mg daily #Depression/anxiety #Schizophrenia ? Resumed lurasidone 80 mg daily ? Resume topiramate 100 mg twice daily Health Maintenance: Diet: Full diabetic diet GI prophylaxis: Pantoprazole 40 mg daily DVT prophylaxis: Enoxaparin 40 mg subcu daily Antibiotics: None CODE STATUS: Full Disposition: Telemetry Case discussed with my attending Dr. Man, and senior resident, Dr. Lisandro Huang MD PGY-1 Attending Provider Attestation/Addendum I attest that I was physically present for the evaluation, physical examination, lab and imaging review of the patient with the residents. I discussed the case with the residents and agree with the findings and plans of care as documented above. At bedside today, patient continues to complain of abdominal pain, and is receiving analgesics [id number]. She denies any nausea or vomiting. Had 2 bowel movements. General surgery was consulted for possible need of surgical intervention regarding her duodenal ulcer. Surgery recommended to continue with medical management, no surgical intervention indicated at this time, appreciate recommendations. Continues to be on IV Protonix, sucralfate and analgesic regimen. Noted to have elevated calcium chronically, inappropriately normal PTH and vitamin D, patient may need further outpatient workup. Continues to be on IV fluid, we will slowly advance her diet. Gustavo Man MD
[2024-10-15 11:02] LABS: Parathyroid Hormone Intact 61.2 pg/ml (18.5-88.0)
[2024-10-15 11:35] LABS: Vitamin D 25 Hydroxy Total 49.2 ng/mL (7.3-40.2)
[2024-10-15] MEDS: RINGERS LACTATED 1000 ML 1,000 ML 100 ML IV ×2 (11:53→19:52)
--- NOTE | 2024-10-15 13:00 | PD.SURCONS ---
HPI Consult details Consult date: 10/15/24 Reason for consultation narrative: Duodenal ulcer History of present illness: 44-year-old female with history of psychiatric disorder with admitted with abdominal pain with nausea and vomiting. She has been seen in the emergency department on many occasions in the past for similar symptoms, she has been giving ibuprofen and meloxicam. CT scan revealed active peptic disease involving the duodenum with some inflammatory changes. Patient was evaluated by Dr. Cooley who performed an EGD that revealed an approximate 30 mm nonbleeding duodenal ulcer. Patient was started on Protonix and Carafate. She has been tolerating clear liquids and her hemoglobin has remained stable. Review of Systems Constitutional Constitutional: Denies chills and Denies fever(s) Cardiovascular Cardiovascular: Denies chest pain Respiratory Respiratory: Denies cough Gastrointestinal Gastrointestinal: Reports abdominal pain, Reports nausea and Reports vomiting Hematologic/Lymphatic Hematologic/Lymphatic: Denies easy bleeding and Denies easy bruising Past Medical History Surgical History OTHER SURGICAL HX: Social History SMOKING STATUS: Current every day smoker SUBSTANCE USE: does not use ALCOHOL: Never Meds Home Medications and Allergies Home Medications ?Medication ?Instructions ?Recorded ?Confirmed ?Type quetiapine 300 mg tablet 300 mg PO QDAY 07/04/21 07/04/21 History topiramate 100 mg tablet 100 mg PO BID 07/04/21 10/13/24 History diphenhydramine HCl 25 mg capsule 25 mg PO BID 10/13/24 10/13/24 History (Banophen) gabapentin 100 mg capsule 100 mg PO HS 10/13/24 10/13/24 History levothyroxine 50 mcg tablet 50 mcg PO DAILY 10/13/24 10/13/24 History lithium carbonate 300 mg capsule 300 mg PO DAILY 10/13/24 10/13/24 History lurasidone 80 mg tablet 80 mg PO .qEVENING 10/13/24 10/13/24 History paroxetine HCl 20 mg tablet 20 mg PO HS 10/13/24 10/13/24 History prazosin 2 mg capsule 1 mg PO HS 10/13/24 10/13/24 History Allergies Allergy/AdvReac Type Severity Reaction Status Date / Time amoxicillin Allergy Severe RASH TO Verified 09/22/24 11:22 ARMPITS Exam Vital Signs Temp Pulse Resp BP Pulse Ox O2 Del Method O2 Flow Rate 97.9 F 80 14 118/76 96 Room Air 2 10/15/24 12:00 07/18/25 12:00 10/15/24 12:00 10/15/24 12:00 10/15/24 12:00 10/15/24 12:00 10/13/24 22:37 Constitutional Constitutional: no acute distress Routine Abdominal Exam Comments: Abdomen is soft and nondistended. She has tenderness to deep palpation epigastric area, no rebound tenderness or peritonitis at this time Results Results: Laboratory Laboratory results: results reviewed Results: Imaging Imaging narrative: CT scan of abdomen pelvis images reviewed, radiologist interpretation noted Assessment & Plan Problem List (1) Peptic ulcer disease: Status: Acute Additional Assessment Additional comments: Patient does not have pancreatitis, edema around the head of pancreas and duodenal bulb is from active peptic ulcer disease and then pancreatitis Plan Continue Carafate, increase Protonix to twice daily. Patient is tolerating liquid diet and hemoglobin has remained stable. May advance diet per Dr. Cooley's recommendation. No indications for surgical intervention at this time
--- NOTE | 2024-10-15 14:35 | PD.RESPRO ---
Documentation for date of: 10/15/24 Subjective Subjective Interval history: Patient states she is still having pain, to the same level as before; she also states that she is eating and drinking, but is not having bowel movements. States that last bowel movement was 2 days ago. Per nursing, patient reports 10 out of 10 pain that improved to 8 out of 10 with [place]. Exam Vital Signs Temp Pulse Resp BP Pulse Ox O2 Del Method O2 Flow Rate 97.9 F 80 14 118/76 96 Room Air 2 10/15/24 12:00 10/15/24 12:00 10/15/24 12:00 10/15/24 12:00 10/15/24 12:00 10/15/24 12:00 10/13/24 22:37 Routine Abdominal Exam Abdominal: Present soft Comments: Patient says she feels pain wherever palpation occurs Objective Labs 10/15/24 05:51 10/15/24 05:51 Labs: Laboratory Results - last 24 hr 10/15/24 05:51 WBC 5.3 RBC 3.36 L Hgb 10.5 L Hct 32.2 L MCV 96 MCH 31.3 MCHC 32.6 RDW Std Deviation 58.1 H Plt Count 228 D Neut % (Auto) 51 Lymph % (Auto) 36 [place] % (Auto) 10 Eos % (Auto) 1 Baso % (Auto) 1 Neut # (Auto) 2.7 Lymph # (Auto) 1.9 [place] # (Auto) 0.6 Eos # (Auto) 0.1 Baso # (Auto) 0.0 Immature Gran # (Auto) 0.02 H Absolute Nucleated RBC 0.00 Immature Gran % 0 Nucleated RBC % 0 Sodium 144 Potassium 4.3 D Chloride 111 H Carbon Dioxide 25.7 Anion Gap 7 BUN 7 L Creatinine 0.5 L Estim Creat Clear Calc 147.6 eGFR > 60 BUN/Creatinine Ratio 14 Glucose 93 Calculated Osmolality 284 Calcium 9.4 Corrected Calcium 10.2 H Phosphorus 2.9 Magnesium 2.2 Total Bilirubin < 0.2 L AST 10 ALT 18 Alkaline Phosphatase 48 Total Protein 4.9 L Albumin 3.0 L Globulin 1.9 L Albumin/Globulin Ratio 1.6 25-OH Vitamin D Total 49.2 H PTH Intact 61.2 Quality Measures Quality Measures VTE prophylaxis Assessment & Plan Assessment Current Active Medications: Generic Name Dose Route Start Last Admin Trade Name Freq PRN Reason Stop Dose Admin Acetaminophen 650 mg 10/12/24 18:45 Acetaminophen 325 Mg Tablet PO 11/11/24 18:44 Q6H PRN PAIN SCALE 1-3 (mild Al Hydrox/Mg Hydrox/Simethicone 15 ml 10/14/24 00:00 10/15/24 12:01 Mg Hyd/Al Hyd/Ivory (Maalox Reg) Susp 30 Ml Udc PO 11/13/24 00:00 15 ml Q6HR BEATRIZ Administration Albuterol/Ipratropium 3 ml 10/12/24 19:06 Albuterol/Ipratropium (Duoneb) Rt [place] 3 Ml Nebu INH 11/12/24 00:59 Q6HRRT PRN sob/wheezing Enoxaparin Sodium 40 mg 10/13/24 09:00 10/15/24 09:17 Enoxaparin Sod Inj 40 Mg/0.4 Ml Syringe SC 10/27/24 08:59 40 mg QDAY BEATRIZ Administration Hydromorphone HCl 1 mg 10/12/24 19:17 10/15/24 12:01 Hydromorphone Inj 2 Mg/Ml Vial IVP 10/17/24 19:13 1 mg Q4HR PRN Administration PAIN SCALE 4-10(Mod-Sev) Lactated Ringer's 1,000 mls @ 100 mls/hr 10/15/24 10:18 10/15/24 11:53 Lactated Ringers IV 11/14/24 10:17 100 mls/hr .Q10H BEATRIZ Administration Levothyroxine Sodium 50 mcg 10/15/24 06:00 10/15/24 06:12 Levothyroxine Sodium 25 Mcg Tablet PO 11/14/24 05:59 50 mcg ACBR BEATRIZ Administration [place] Carbonate 300 mg 10/14/24 09:00 10/15/24 09:17 [place] Carb 150 Mg Capsule PO 11/13/24 08:59 300 mg DAILY BEATRIZ Administration Lurasidone HCl 80 mg 10/15/24 21:00 Lurasidone Hcl 20 Mg Tablet (Non-Formulary) PO 11/14/24 20:59 HS BEATRIZ Protocol Ondansetron HCl 4 mg 10/12/24 18:58 10/13/24 19:29 Ondansetron Inj 2 Mg/Ml Inj 2 Ml IVP 11/11/24 18:57 4 mg Q6H PRN Administration NAUSEA OR VOMITING Protocol Pantoprazole Sodium 40 mg 10/15/24 21:00 Pantoprazole Inj 40 Mg Vial IV 11/14/24 20:59 BID BEATRIZ Polyethylene Glycol 17 gm 10/14/24 17:30 10/15/24 09:17 Polyethylene Glycol 17 Gm Packet PO 11/13/24 17:29 17 gm QDAY BEATRIZ Administration Sucralfate 1 gm 10/14/24 06:00 10/15/24 12:01 Sucralfate Susp 1 Gm/10 Ml Udc PO 11/13/24 05:59 1 gm QID BEATRIZ Administration Topiramate 100 mg 10/14/24 09:00 10/15/24 09:17 Topiramate 100 Mg Tablet PO 11/13/24 08:59 100 mg BID BEATRIZ Administration Plan Patient is a 44-year-old female with chief complaint of abdominal pain (epigastric and right upper quadrant). #Peptic ulcer disease Nonbleeding duodenal ulcer with clean ulcer base found in first portion of duodenum (30 mm maximal dimension) found on EGD. Surgery consulted; they stated that patient was not a surgical candidate at this time. Hemoglobin is stable (10.5 from 10.8). Significant stool impaction on KUB. Plan: Clear liquid diet, GoLytely 4L #Hypomagnesemia, Diarrhea, Hypothyroidism, Bipolar disorder, Depression/anxiety, Schizophrenia Plan: Per primary team Attending Provider Attestation/Addendum Patient evaluated along with the internal medicine resident KUB reviewed Shows mild ileus but stool impaction in the right colon GoLytely prep And reevaluation in 24 hours Clear liquid diet
--- NOTE | 2024-10-15 16:11 | PC.SS ---
Follow up note: Patient requested short stay at SNF. Lives alone. Patient worked with PT today and they recommended SNF short term. PASRR completed and inquiry sent off.
--- NOTE | 2024-10-15 17:24 | PC.PT ---
Patient is safe to continue using the bedside commode with 1 staff assist and her 1 crutch. RN made aware.
[2024-10-15] MEDS: NA SU/NAHCO3/KC/PEG (Golytely) 4,000 ML BTL 4000 ML PO (19:51)
[2024-10-15] MEDS: LURASIDONE HCL 20 MG 80 MG PO (20:31)
[2024-10-16] VITALS (9 sets, daily range): BP systolic 105–123; BP diastolic 69–78; PULSE 59–91; RESP 14–20; TEMP 36.1–36.7; O2SAT 93–100
[2024-10-16] MEDS: HYDROmorphone INJ 2 MG/ML VIAL 1 MG IVP ×3 (00:31→08:59)
--- NOTE | 2024-10-16 00:48 | PC.NURSE ---
report given to Oralia GUTIERREZ MS.
[2024-10-16 06:01] LABS: Basophils # (Auto) 0.0 Thou/mm3 (0.0-0.2); Basophils % (Auto) 1 % (0-2.5); Eosinophils # (Auto) 0.1 Thou/mm3 (0.0-0.5); Eosinophils % (Auto) 2 % (0-10); Hematocrit 35.8 % (36.0-46.0); Hemoglobin 11.3 g/dL (12.0-16.0); Immature Granulocytes Auto 0.02 Thou/mm3 (0.00-0.00); Lymphocytes # (Auto) 2.4 Thou/mm3 (1.0-4.8); Lymphocytes % (Auto) 42 % (10-50); Mean Corpuscular HGB Conc 31.6 g/dl (31.0-37.0); Mean Corpuscular Hemoglobin 31.6 pg (25.0-35.0); Mean Corpuscular Volume 100 fL (80-100); Monocytes # (Auto) 0.4 Thou/mm3 (0.0-0.8); Monocytes % (Auto) 8 % (0-12); Neutrophils # (Auto) 2.7 Thou/mm3 (1.8-7.7); Neutrophils % (Auto) 47 % (37-80); Nucleated Red Blood Cell # 0.00 Thou/mm3 (0.00-0.00); Nucleated Red Blood Cell % 0 /100 WBC (0); Platelet Count 251 Thou/mm3 (140-440); RDW Standard Deviation 59.9 fL (36.4-46.3); Red Blood Count 3.58 Miln/mm3 (4.00-5.20); White Blood Count 5.7 Thou/mm3 (3.6-11.0)
[2024-10-16] MEDS: SUCRALFATE SUSP 1 GM/10 ML UDC PO ×4 (06:06→20:42)
[2024-10-16] MEDS: RINGERS LACTATED 1000 ML 1,000 ML 100 ML IV ×2 (06:06→19:45)
[2024-10-16] MEDS: MG HYD/AL HYD/SIME (Maalox Reg) SUSP 30 ML UDC 15 ML PO ×4 (06:06→23:43)
[2024-10-16] MEDS: LEVOTHYROXINE SODIUM 25 MCG TABLET 50 MCG PO (06:06)
[2024-10-16 06:33] LABS: Alanine Aminotransferase 17 U/L (10-49); Albumin, Serum 3.4 gm/dL (3.5-5.0); Albumin/Globulin Ratio 1.7 (1.2-2.2); Alkaline Phosphatase 52 U/L (46-116); Anion Gap 10 (7-16); Aspartate Amino Transferase 13 U/L (0-34); BUN/Creatinine Ratio 16 Ratio (12-20); Bilirubin,Total 0.2 mg/dL (0.3-1.2); Blood Urea Nitrogen 8 mg/dL (9-23); Calcium 9.9 mg/dL (8.3-10.6); Calcium (Corrected) 10.4 mg/dL (8.5-10.1); Carbon Dioxide 24.0 mMol/L (20.0-31.0); Chloride 109 mMol/L (98-107); Creatinine (Component) 0.5 mg/dL (0.6-1.3); Estimated Creatinine Clearance 147.6 mL/min (>60); Globulin 2.0 gm/dL (2.3-3.5); Glucose 114 mg/dL (74-106); Magnesium 1.8 mg/dL (1.6-2.6); Osmolality,Calculated 284 (275-295); Phosphorous 2.9 mg/dL (2.4-5.1); Potassium 4.3 mMol/L (3.4-5.1); Sodium 143 mMol/L (136-145); Total Protein 5.4 gm/dL (5.7-8.2); eGFR > 60 See Note
[2024-10-16] MEDS: LITHIUM CARB 150 MG CAPSULE 300 MG PO (08:37)
[2024-10-16] MEDS: TOPIRAMATE 100 MG TABLET PO ×2 (08:37→20:42)
[2024-10-16] MEDS: ENOXAPARIN SOD INJ 40 MG/0.4 ML SYRINGE SC (08:38)
[2024-10-16] MEDS: POLYETHYLENE GLYCOL 17 GM PACKET PO (08:38)
[2024-10-16] MEDS: HYDROcodone/APAP 5/325 TABLET 1 TAB PO ×3 (13:20→22:12)
--- NOTE | 2024-10-16 13:53 | ESPR_ITS ---
Documentation for date of: 10/16/24 Subjective Subjective Interval history: Patient seen at bedside. No acute overnight events. Patient has ongoing abdominal pain that has not changed since being in hospital, is a chronic issue. Patient also is endorsing bilateral arm pain bilateral thigh pain, bilateral foot pain. Of note, patient has a history of diagnosis of fibromyalgia. Patient had a bowel movement today. Exam Vital Signs Temp Pulse Resp BP Pulse Ox O2 Del Method O2 Flow Rate 97.8 F 91 18 106/69 97 Room Air 2 10/16/24 08:00 10/16/24 12:00 10/16/24 08:00 10/16/24 08:00 10/16/24 08:00 10/16/24 08:00 10/13/24 22:37 Narrative Exam General: A/O x3, no acute distress Eyes: PERRLA, EOMI. Anicteric. Ears: No ear pain, no ear discharge, Hearing intact. Nose: No nasal discharge. Mouth/Throat: Moist mucous membranes, no redness, no lesions. Neck: Neck supple, non-tender, no cervical lymphadenopathy. Lungs: GAEB, No accessory muscle use. No crackles or adventitious sounds. Cardio: Normal S1/S2, regular rhythm, no murmurs Abdomen: Soft, no distention, tenderness to the epigastric region, no guarding. Extremities: Symmetrical, no significant deformities, +1 bilat pitting peripheral edema , bilateral tenderness to arms, thighs, feet. Skin: No rashes, no lesions, warm to touch. Neuro: No aphasia, no facial asymmetry, moving all 4 limbs well. Psych: Cooperative, no flight of ideas Objective Labs 10/17/24 04:00 10/17/24 04:00 Labs: Laboratory Results - last 24 hr 10/16/24 04:47 WBC 5.7 RBC 3.58 L Hgb 11.3 L Hct 35.8 L MCV 100 MCH 31.6 MCHC 31.6 RDW Std Deviation 59.9 H Plt Count 251 Neut % (Auto) 47 Lymph % (Auto) 42 [place] % (Auto) 8 Eos % (Auto) 2 Baso % (Auto) 1 Neut # (Auto) 2.7 Lymph # (Auto) 2.4 [place] # (Auto) 0.4 Eos # (Auto) 0.1 Baso # (Auto) 0.0 Immature Gran # (Auto) 0.02 H Absolute Nucleated RBC 0.00 Immature Gran % 0 Nucleated RBC % 0 Sodium 143 Potassium 4.3 Chloride 109 H Carbon Dioxide 24.0 Anion Gap 10 BUN 8 L Creatinine 0.5 L Estim Creat Clear Calc 147.6 eGFR > 60 BUN/Creatinine Ratio 16 Glucose 114 H Calculated Osmolality 284 Calcium 9.9 Corrected Calcium 10.4 H Phosphorus 2.9 Magnesium 1.8 Total Bilirubin 0.2 L AST 13 ALT 17 Alkaline Phosphatase 52 Total Protein 5.4 L Albumin 3.4 L Globulin 2.0 L Albumin/Globulin Ratio 1.7 Quality Measures Quality Measures VTE prophylaxis Assessment & Plan Assessment Current Active Medications: Generic Name Dose Route Start Last Admin Trade Name Freq PRN Reason Stop Dose Admin Acetaminophen 650 mg 10/12/24 18:45 Acetaminophen 325 Mg Tablet PO 11/11/24 18:44 Q6H PRN PAIN SCALE 1-3 (mild Hydrocodone Bitart/Acetaminophen 1 tab 10/16/24 12:17 10/16/24 13:20 Hydrocodone/Apap 5/325 Tablet PO 10/21/24 12:16 1 tab Q4HR PRN Administration Pain 4-7 or breakthrough Al Hydrox/Mg Hydrox/Simethicone 15 ml 10/14/24 00:00 10/16/24 11:58 Mg Hyd/Al Hyd/Ivory (Maalox Reg) Susp 30 Ml Udc PO 11/13/24 00:00 15 ml Q6HR BEATRIZ Administration Albuterol/Ipratropium 3 ml 10/12/24 19:06 Albuterol/Ipratropium (Duoneb) Rt Holly 3 Ml Nebu INH 11/12/24 00:59 Q6HRRT PRN sob/wheezing Enoxaparin Sodium 40 mg 10/13/24 09:00 10/16/24 08:38 Enoxaparin Sod Inj 40 Mg/0.4 Ml Syringe SC 10/27/24 08:59 40 mg QDAY BEATRIZ Administration Gabapentin 200 mg 10/16/24 21:00 Gabapentin 100 Mg Capsule PO 11/15/24 20:59 HS BEATRIZ Lactated Ringer's 1,000 mls @ 100 mls/hr 10/15/24 10:18 10/16/24 06:06 Lactated Ringers IV 11/14/24 10:17 100 mls/hr .Q10H BEATRIZ Administration Levothyroxine Sodium 50 mcg 10/15/24 06:00 10/16/24 06:06 Levothyroxine Sodium 25 Mcg Tablet PO 11/14/24 05:59 50 mcg ACBR BEATRIZ Administration [place] Carbonate 300 mg 10/14/24 09:00 10/16/24 08:37 [place] Carb 150 Mg Capsule PO 11/13/24 08:59 300 mg DAILY BEATRIZ Administration Lurasidone HCl 80 mg 10/15/24 21:00 10/15/24 20:31 Lurasidone Hcl 20 Mg Tablet (Non-Formulary) PO 11/14/24 20:59 80 mg HS BEATRIZ Administration Protocol Ondansetron HCl 4 mg 10/12/24 18:58 10/13/24 19:29 Ondansetron Inj 2 Mg/Ml Inj 2 Ml IVP 11/11/24 18:57 4 mg Q6H PRN Administration NAUSEA OR VOMITING Protocol Pantoprazole Sodium 40 mg 10/15/24 21:00 10/16/24 08:37 Pantoprazole Inj 40 Mg Vial IV 11/14/24 20:59 40 mg BID BEATRIZ Administration Polyethylene Glycol 17 gm 10/14/24 17:30 10/16/24 08:38 Polyethylene Glycol 17 Gm Packet PO 11/13/24 17:29 17 gm QDAY BEATRIZ Administration Sucralfate 1 gm 10/14/24 06:00 10/16/24 11:58 Sucralfate Susp 1 Gm/10 Ml Udc PO 11/13/24 05:59 1 gm QID BEATRIZ Administration Topiramate 100 mg 10/14/24 09:00 10/16/24 08:37 Topiramate 100 Mg Tablet PO 11/13/24 08:59 100 mg BID BEATRIZ Administration Plan Assessment: A 44-year-old female with significant psychiatric history for bipolar disorder, depression/anxiety, schizophrenia, night terrors presents to the emergency department with a two-month history of persistent, severe epigastric abdominal pain, accompanied by nausea, vomiting, and diarrhea. Patient has been admitted for workup of active peptic ulcer disease/pancreatitis. #Intractable Nausea/Vomiting 2/2 #Peptic Ulcer Disease #Suspected Pancreatitis Causes of PUD include H. pylori, NSAID use, smoking, EtOH use, Stress, Mukesh-Wyatt syndrome Causes of pancreatitis gallstones, alcohol, hypertriglyceridemia Patient has had epigastric pain for the past 2 months, that has not gotten better, but also has not gotten worse. She feels that the pain is not pain is not being well-managed. CT scan of the abdomen/pelvis: Active peptic disease involving the duodenum. Suspicious for pancreatitis. Consider MRCP follow-up. Small bowel ileus EGD 10/13/2024: Stomach (antrum): Reactive gastropathy. Negative for intestinal metaplasia, dysplasia, malignancy, and H. Pylori. Stomach (cardia): Mild chronic inactive gastritis with necroinflammatory debris. Negative for intestinal metaplasia, dysplasia, malignancy, and H. Pylori. Duodenum: Acute duodenitis with necroinflammatory debris. Positive for fungal elements by GMS stain. Negative for Celiac disease, dysplasia, malignancy, and H. Pylori. Abdominal x-ray 10/14/2024: Mild small bowel ileus, no obstruction, moderate stool throughout the colon Dr. Lopez assessed patient and does not believe patient has pancreatitis, edema around the head of pancreas and duodenal bulb likely from active peptic ulcer disease. Plan ? IV fluids lactated Ringer's 100 mL an hour ? Pantoprazole to 40 mg IV BID ? Hydromorphone 1 mg IV every 4 hours as needed ? Zofran as needed Constipation Has not had a BM in a few days ? MiraLAX 17 g daily ?GoLytely #Fibromyalgia ? chronic Patient not a good historian Patient's current bilateral arm pain, thigh pain, feet pain likely related ? Added gabapentin 200 mg qHS ? If not resolving may consider other medications #Mild Primary Hyperparathyroidism PTH 61.2 Ca 10.2 - mild elevation Phos Vit D 49.2 (normal sufficency) Calcium on high end, PTH on higher end of assay, vit D and kidney function normal Plan - Outpatient F/U for further investigation with imaging #Biliary colic #No cholelithiasis #Cholecystitis ruled out Less suspicion for cholangitis at this time as patient does not have elevation in total bilirubin, ALP or liver enzymes. [place] sign positive No fever. Vital signs within normal limit. White blood cell count 5.7 Right upper quadrant ultrasound: negative for cholelithiasis, normal common bile duct ?Monitor #Right hip pain Hip x-ray 10/14/2024: Minimal bilateral hip osteoarthritis, no fracture or dislocation ? Monitor ? Treat pain as necessary #Hypothyroidism Patient's usual dose of levothyroxine is 50 mcg p.o. daily TSH 10.24, free T4 0.91 ? levothyroxine p.o. 50 mcg daily as per home med #Bipolar disorder [place] level <0.1 ? Resumed lithium carbonate 300 mg daily #Depression/anxiety #Schizophrenia ? Resumed lurasidone 80 mg daily ? Resume topiramate 100 mg twice daily Health Maintenance: Diet: Full diabetic diet GI prophylaxis: Pantoprazole 40 mg daily DVT prophylaxis: Enoxaparin 40 mg subcu daily Antibiotics: None CODE STATUS: Full Case discussed with my attending Dr. Magda Huang MD PGY-1 Attending Provider Attestation/Addendum I attest that I was physically present for the evaluation, physical examination, lab and imaging review of the patient with the residents. I discussed the case with the residents and agree with the findings and plans of care as documented above. At bedside today, patient appears comfortable. Continues to complain of abdominal pain and pain in her foot. Patient was started on GoLytely for stool impaction. Continues to be on IV hydration but patient has been able to tolerate diet as well. We will monitor closely, once patient has enough oral intake, we will discontinue fluid. if patient is able to havesufficient bowel movement and continues to be stable, will plan for discharge tomorrow. Gustavo Man MD
--- NOTE | 2024-10-16 18:44 | PD.IMPROG ---
Documentation for date of: 10/16/24 Subjective Subjective Interval history: Patient evaluated Still has abdominal pain Hemoglobin hematocrit stable Gastric biopsies are negative for Helicobacter pylori Ulcer biopsies are negative for any malignancy but necrotic debris and also some fungal elements KUB had shown stool impaction was started on GoLytely Exam Vital Signs Temp Pulse Resp BP Pulse Ox O2 Del Method O2 Flow Rate 97.1 F 69 19 123/78 97 Room Air 2 10/16/24 16:00 10/16/24 16:00 10/16/24 16:00 10/16/24 16:00 10/16/24 16:00 10/16/24 16:00 10/13/24 22:37 Objective Labs 10/17/24 04:00 10/17/24 04:00 Labs: Laboratory Results - last 24 hr 10/16/24 04:47 WBC 5.7 RBC 3.58 L Hgb 11.3 L Hct 35.8 L MCV 100 MCH 31.6 MCHC 31.6 RDW Std Deviation 59.9 H Plt Count 251 Neut % (Auto) 47 Lymph % (Auto) 42 [place] % (Auto) 8 Eos % (Auto) 2 Baso % (Auto) 1 Neut # (Auto) 2.7 Lymph # (Auto) 2.4 [place] # (Auto) 0.4 Eos # (Auto) 0.1 Baso # (Auto) 0.0 Immature Gran # (Auto) 0.02 H Absolute Nucleated RBC 0.00 Immature Gran % 0 Nucleated RBC % 0 Sodium 143 Potassium 4.3 Chloride 109 H Carbon Dioxide 24.0 Anion Gap 10 BUN 8 L Creatinine 0.5 L Estim Creat Clear Calc 147.6 eGFR > 60 BUN/Creatinine Ratio 16 Glucose 114 H Calculated Osmolality 284 Calcium 9.9 Corrected Calcium 10.4 H Phosphorus 2.9 Magnesium 1.8 Total Bilirubin 0.2 L AST 13 ALT 17 Alkaline Phosphatase 52 Total Protein 5.4 L Albumin 3.4 L Globulin 2.0 L Albumin/Globulin Ratio 1.7 Impressions Impression: Large penetrating ulcer in the duodenum Stable hemoglobin hematocrit Continue current management Assessment & Plan A&P Narrative Pain abdomen epigastric right upper quadrant with abnormal CT scan of the abdomen pelvis showing active peptic ulcer disease and possibility of a pancreatitis Worrisome differential diagnosis include penetrating duodenal ulcer Suggestions Protonix drip at 8 mg/h N.p.o. midnight tonight Consent obtained for fiberoptic esophagogastroduodenoscopy with possible biopsy possible therapeutic intervention under intravenous moderate sedation scheduled for tomorrow morning Serial CBC Repeat amylase and lipase in the morning along with CMP LFTs at the moment normal Thank you very much for the opportunity to participate in the care of this patient Time Spent With Patient Time: Total time spent is greater than 50% in coordination of care (as documented) at patient's floor/unit and/or counseling patient:
[2024-10-16] MEDS: ACETAMINOPHEN 325 MG TABLET 650 MG PO (19:21)
[2024-10-16] MEDS: LURASIDONE HCL 20 MG 80 MG PO (20:42)
[2024-10-16] MEDS: GABAPENTIN 100 MG CAPSULE 200 MG PO (21:10)
[2024-10-16] MEDS: SIMETHICONE 80 MG CHEW PO (21:11)
[2024-10-17] VITALS (11 sets, daily range): BP systolic 98–122; BP diastolic 68–87; PULSE 78–97; RESP 16–19; TEMP 36.1–36.4; O2SAT 95–98; BMI 27.1
[2024-10-17] MEDS: HYDROcodone/APAP 5/325 TABLET 1 TAB PO ×5 (02:13→22:15)
[2024-10-17 05:27] LABS: Basophils # (Auto) 0.0 Thou/mm3 (0.0-0.2); Basophils % (Auto) 1 % (0-2.5); Eosinophils # (Auto) 0.1 Thou/mm3 (0.0-0.5); Eosinophils % (Auto) 2 % (0-10); Hematocrit 37.2 % (36.0-46.0); Hemoglobin 11.9 g/dL (12.0-16.0); Immature Granulocytes Auto 0.02 Thou/mm3 (0.00-0.00); Lymphocytes # (Auto) 2.0 Thou/mm3 (1.0-4.8); Lymphocytes % (Auto) 35 % (10-50); Mean Corpuscular HGB Conc 32.0 g/dl (31.0-37.0); Mean Corpuscular Hemoglobin 31.6 pg (25.0-35.0); Mean Corpuscular Volume 99 fL (80-100); Monocytes # (Auto) 0.5 Thou/mm3 (0.0-0.8); Monocytes % (Auto) 9 % (0-12); Neutrophils # (Auto) 3.1 Thou/mm3 (1.8-7.7); Neutrophils % (Auto) 53 % (37-80); Nucleated Red Blood Cell # 0.00 Thou/mm3 (0.00-0.00); Nucleated Red Blood Cell % 0 /100 WBC (0); Platelet Count 293 Thou/mm3 (140-440); RDW Standard Deviation 56.7 fL (36.4-46.3); Red Blood Count 3.76 Miln/mm3 (4.00-5.20); White Blood Count 5.9 Thou/mm3 (3.6-11.0)
[2024-10-17 05:48] LABS: Alanine Aminotransferase 16 U/L (10-49); Albumin, Serum 3.6 gm/dL (3.5-5.0); Albumin/Globulin Ratio 1.7 (1.2-2.2); Alkaline Phosphatase 55 U/L (46-116); Anion Gap 9 (7-16); Aspartate Amino Transferase 13 U/L (0-34); BUN/Creatinine Ratio 22 Ratio (12-20); Bilirubin,Total 0.2 mg/dL (0.3-1.2); Blood Urea Nitrogen 11 mg/dL (9-23); Calcium 10.1 mg/dL (8.3-10.6); Calcium (Corrected) 10.4 mg/dL (8.5-10.1); Carbon Dioxide 23.6 mMol/L (20.0-31.0); Chloride 110 mMol/L (98-107); Creatinine (Component) 0.5 mg/dL (0.6-1.3); Estimated Creatinine Clearance 147.4 mL/min (>60); Globulin 2.1 gm/dL (2.3-3.5); Glucose 85 mg/dL (74-106); Magnesium 2.1 mg/dL (1.6-2.6); Osmolality,Calculated 283 (275-295); Phosphorous 3.6 mg/dL (2.4-5.1); Potassium 4.6 mMol/L (3.4-5.1); Sodium 143 mMol/L (136-145); Total Protein 5.7 gm/dL (5.7-8.2); eGFR > 60 See Note
[2024-10-17] MEDS: SUCRALFATE SUSP 1 GM/10 ML UDC PO ×4 (06:04→21:48)
[2024-10-17] MEDS: MG HYD/AL HYD/SIME (Maalox Reg) SUSP 30 ML UDC 15 ML PO ×4 (06:04→23:05)
[2024-10-17] MEDS: LEVOTHYROXINE SODIUM 25 MCG TABLET 50 MCG PO (06:16)
[2024-10-17] MEDS: RINGERS LACTATED 1000 ML 1,000 ML 100 ML IV ×2 (06:17→18:07)
[2024-10-17] MEDS: POLYETHYLENE GLYCOL 17 GM PACKET PO (09:33)
[2024-10-17] MEDS: TOPIRAMATE 100 MG TABLET PO ×2 (09:33→21:48)
[2024-10-17] MEDS: ENOXAPARIN SOD INJ 40 MG/0.4 ML SYRINGE SC (09:34)
[2024-10-17] MEDS: LITHIUM CARB 150 MG CAPSULE 300 MG PO (09:34)
--- NOTE | 2024-10-17 10:28 | PC.SS ---
Addendum entered by Vandana Dale 10/17/24 14:29: Insurance auth. needed for SNF. [facility] SNF aware and will initiate 10/18/24. Original Note: Patient informed accepting facility is [facility]. Patient agreed. [facility] also accepted. However, no female beds available at this time.
--- NOTE | 2024-10-17 12:38 | ESDS_ITS ---
Planned Discharge Date 10/17/24 DS: Providers Provider Date of admission: 10/12/24 18:45 Primary care physician: Avinash Patel MD Admitting Provider: Marley Johnson DO Attending Provider on Admission: Gustavo Man MD Consults: 10/12/24 17:49 Consult to Gastroenterology Stat Comment: Consulting Provider: Dalton Cooley 10/13/24 22:29 Consult to General Surgery Routine Comment: Consulting Provider: Noé Lopez 10/14/24 10:07 Referral Physical Therapy Routine Comment: Physician Instructions: Attending Provider on DC: Gustavo Man MD Discharging Provider: Gustavo Man MD DS: Diagnosis Problem List Completed Was Problem List Reviewed/Reconciled?: Yes Hospital Course Hospital Course Hospital course: A 44-year-old female with hypothyroidism, bipolar disorder, depression/anxiety, schizophrenia, and fibromyalgia presents to the emergency department who was admitted to [facility] on October 12, 2024 for pancreatitis and intratable nausea and vomiting. Patient had arrived to the ED with a temperature 98.2?F, Pulse 77 bpm, Respiratory Rate 18 bpm, Blood Pressure 123/81 mmHg, Oxygen Saturation 98% on room air. A CT abdomen and pelvis was performed, revealing early pancreatitis with inflammation at the pancreatic head. CBC, CMP, and lipase levels were all unremarkable. Gastroenterology was consulted (Dr. Cooley), and an endoscopy is being considered. Patient's pain was controlled with morphine. Medicine was consulted patient admitted to the floors. While on the floors, patient received analgesia and IV lactated Ringer's at a high rate for management pancreatitis. Patient also had EGD done by Dr. Cooley which showed gastritis and nonbleeding duodenal ulcer. General surgery, Dr Lopez, was consulted for evaluation further consultation of duodenal ulcer and he had recommended no surgical intervention at this time. Patient was treated with Protonix for further management of ulcer which she is going to continue PPI outpatient for at least 3 months for management of ulcer and gastritis. Patient also had psych medicines resumed while inpatient including lithium and lithium level was tested while inpatient and it was actually below the normal range which can indicate that patient was not taking it. Patient continued to improve, however patient was experiencing some hip pain in which she got imaging for with plain films and it showed hip osteoarthritis in which we had told her to follow-up with her PCP and continue with analgesics. Patient was also found to have corrected calcium that was elevated, PTH and vitamin D were ordered, PTH was low normal and vitamin D levels were elevated. We curbside it endocrine who had suggested patient had primary hyperparathyroidism and recommend patient to follow-up outpatient for evaluation of primary hyperparathyroidism. Patient does also have history of fibromyalgia in which we told her to follow-up outpatient as well. Discharge Instructions: Follow up with PCP within on week of d/c Continue to take meds as prescribed See your angio technologist, Dr. Cooley, to follow up from the hospital on your pathology results from EGD within 1-2 weeks. Address: [facility] [place] [address]. . Call to make an appointment Continue Taking Omeprazole 40 mg for 3 months, take one tablet by mouth every day 30 minutes before breakfast. This is to treat your gastritis Follow up with your Psychiatrist when able in regards to continuing to your psych meds Return to ER if your symptoms worsen or return Continue with Rehab in the SNF Speak with your PCP in regards for evaluation of primary hyperparathyroidism. Your calcium levels were high in the hospital, speak with your PCP if you need to speak with an freelance operator to further evaluate you and if you need surgical intervention with ENT Repeat TSH level in 4-6 weeks as it was slightly elevated in the hospital. Problem List: #Intractable Nausea/Vomiting 2/2 #Peptic Ulcer Disease #Suspected Pancreatitis #Constipation #Fibromyalgia ? chronic #Mild Primary Hyperparathyroidism #Biliary colic #No cholelithiasis #Cholecystitis ruled out #Right hip pain #Subclinical Hypothyroidism #Bipolar disorder #Depression/anxiety #Schizophrenia Discharge summary was reviewed with my attending Dr. Magda Mcmahon, PGY-2 Time Spent with Patient Time attestation: Total time spent providing and/or coordinating discharge services:32 min Time spent: Greater than 30 minutes Exam Vital Signs Temp Pulse Resp BP Pulse Ox O2 Del Method O2 Flow Rate 97.0 F 97 17 103/75 96 Room Air 2 10/17/24 07:39 10/17/24 07:39 10/17/24 07:39 10/17/24 07:39 10/17/24 07:39 10/17/24 07:39 10/13/24 22:37 Narrative Exam General: A/O x3, no acute distress Eyes: PERRLA, EOMI. Anicteric. Ears: No ear pain, no ear discharge, Hearing intact. Nose: No nasal discharge. Mouth/Throat: Moist mucous membranes, no redness, no lesions. Neck: Neck supple, non-tender, no cervical lymphadenopathy. Lungs: GAEB, No accessory muscle use. No crackles or adventitious sounds. Cardio: Normal S1/S2, regular rhythm, no murmurs Abdomen: Soft, no distention, tenderness to the epigastric region, no guarding. Extremities: Symmetrical, no significant deformities, +1 bilat pitting peripheral edema , bilateral tenderness to arms, thighs, feet. Skin: No rashes, no lesions, warm to touch. Neuro: No aphasia, no facial asymmetry, moving all 4 limbs well. Psych: Cooperative, no flight of ideas Discharge Plan Plan Patient Disposition: Xfer Skilled Nsg Fac (SNF) Patient condition on transfer: Stable Care Plan Goals: Discharge Instructions: Follow up with PCP within on week of d/c Continue to take meds as prescribed See your angio technologist, Dr. Cooley, to follow up from the hospital on your pathology results from EGD within 1-2 weeks. Address: [facility] [place] [address]. . Call to make an appointment Continue Taking Omeprazole 40 mg for 3 months, take one tablet by mouth every day 30 minutes before breakfast. This is to treat your gastritis Follow up with your Psychiatrist when able in regards to continuing to your psych meds Return to ER if your symptoms worsen or return Continue with Rehab in the SNF Speak with your PCP in regards for evaluation of primary hyperparathyroidism. Your calcium levels were high in the hospital, speak with your PCP if you need to speak with an freelance operator to further evaluate you and if you need surgical intervention with ENT. Repeat TSH level in 4-6 weeks as it was slightly elevated in the hospital. Prescriptions/Referrals Prescriptions/Med Rec: New hydrocodone-acetaminophen 5-325 mg tablet 1 tab PO Q6H MDD max 4 tabs per day PRN (Reason: pain) Qty: 10 0RF Continued topiramate 100 mg Tablet 100 mg PO BID ondansetron 4 mg tablet,disintegrating 4 mg PO Q8H PRN (Reason: nausea and vomiting) Qty: 10 0RF paroxetine HCl 20 mg tablet 20 mg PO HS Patient Comments: TAKE ONE TABLET BY MOUTH AT BEDTIME prazosin 2 mg capsule 3 mg PO HS Patient Comments: TAKE three CAPSULE BY MOUTH AT BEDTIME levothyroxine 50 mcg tablet 50 mcg PO DAILY Patient Comments: TAKE ONE TABLET BY MOUTH EVERY MORNING FOR THYROID lithium carbonate 300 mg capsule 300 mg PO DAILY Patient Comments: TAKE ONE CAPSULE BY MOUTH TWICE DAILY gabapentin 100 mg capsule 200 mg PO HS Patient Comments: TAKE TWO CAPSULES BY MOUTH AT BEDTIME FOR NERVE PAIN lurasidone 80 mg tablet 80 mg PO .qEVENING Patient Comments: TAKE ONE TABLET BY MOUTH EVERY EVENING omeprazole 40 mg capsule,delayed release(DR/EC) 40 mg PO QDAY Qty: 30 0RF Discontinued tramadol-acetaminophen [Ultracet] 37.5-325 mg tablet 1 tab PO TID PRN (Reason: pain) Qty: 30 0RF diphenhydramine HCl [Banophen] 25 mg capsule 25 mg PO BID Patient Comments: TAKE ONE CAPSULE BY MOUTH TWICE DAILY FOR ALLERGY. famotidine 40 mg tablet 40 mg PO .bedtime Qty: 30 0RF ondansetron 4 mg tablet,disintegrating 4 mg PO TID PRN (Reason: nausea and vomiting) 30 Days Qty: 10 0RF Referrals: Avinash Patel MD [Primary Care Provider] - Patient/Caregiver Discharge Instructions Discharge Activity: activity as tolerated Education Materials: Parathyroid Hormone, Parathyroid Glands, Abdominal Pain, Treating Gastritis, Understanding Gastritis, ED Gastritis (Adult) Print Language: [place] Stand Alone Forms: [facility]ola Award Info., Patient Portal Info Letter Discharge Order Discharge Orders: Discharge (Routine); Ordered 10/17/24 Ordered By: Deonna Mcmahon Quality Discharge Quality Measures VTE prophylaxis (Lovenox) Attestestation MD Attestation I attest that I was physically present for the evaluation, physical examination, lab and imaging review of the patient with the residents. I discussed the case with the residents and agree with the findings and plans of care as documented above. Gustavo Man MD
--- NOTE | 2024-10-17 18:10 | PD.IMPROG ---
Documentation for date of: 10/17/24 Subjective Subjective Interval history: Patient evaluated Good results are GoLytely so far It was done because of abdominal pain and a KUB showed stool impaction Patient never had a colonoscopy For further evaluation of abdominal pain Once patient is clear I have scheduled her for colonoscopy and the consent obtained Exam Vital Signs Temp Pulse Resp BP Pulse Ox O2 Del Method O2 Flow Rate 97.4 F 87 18 117/73 97 Room Air 2 10/17/24 16:00 10/17/24 16:00 10/17/24 16:00 10/17/24 16:00 10/17/24 16:00 10/17/24 16:00 10/13/24 22:37 Objective Labs 10/17/24 04:00 10/17/24 04:00 Labs: Laboratory Results - last 24 hr 10/17/24 04:00 WBC 5.9 RBC 3.76 L Hgb 11.9 L Hct 37.2 MCV 99 MCH 31.6 MCHC 32.0 RDW Std Deviation 56.7 H Plt Count 293 D Neut % (Auto) 53 Lymph % (Auto) 35 [place] % (Auto) 9 Eos % (Auto) 2 Baso % (Auto) 1 Neut # (Auto) 3.1 Lymph # (Auto) 2.0 [place] # (Auto) 0.5 Eos # (Auto) 0.1 Baso # (Auto) 0.0 Immature Gran # (Auto) 0.02 H Absolute Nucleated RBC 0.00 Immature Gran % 0 Nucleated RBC % 0 Sodium 143 Potassium 4.6 Chloride 110 H Carbon Dioxide 23.6 Anion Gap 9 BUN 11 Creatinine 0.5 L Estim Creat Clear Calc 147.4 eGFR > 60 BUN/Creatinine Ratio 22 H Glucose 85 Calculated Osmolality 283 Calcium 10.1 Corrected Calcium 10.4 H Phosphorus 3.6 Magnesium 2.1 Total Bilirubin 0.2 L AST 13 ALT 16 Alkaline Phosphatase 55 Total Protein 5.7 Albumin 3.6 Globulin 2.1 L Albumin/Globulin Ratio 1.7 Impressions Impression: Pain abdomen Stool impaction Continue GoLytely P.o. Additional GoLytely if necessary for the colon to be clean for a colonoscopy tomorrow Assessment & Plan A&P Narrative Pain abdomen epigastric right upper quadrant with abnormal CT scan of the abdomen pelvis showing active peptic ulcer disease and possibility of a pancreatitis Worrisome differential diagnosis include penetrating duodenal ulcer Suggestions Protonix drip at 8 mg/h N.p.o. midnight tonight Consent obtained for fiberoptic esophagogastroduodenoscopy with possible biopsy possible therapeutic intervention under intravenous moderate sedation scheduled for tomorrow morning Serial CBC Repeat amylase and lipase in the morning along with CMP LFTs at the moment normal Thank you very much for the opportunity to participate in the care of this patient Time Spent With Patient Time: Total time spent is greater than 50% in coordination of care (as documented) at patient's floor/unit and/or counseling patient:
--- NOTE | 2024-10-17 20:16 | PC.NURSE ---
Pt refusing to drink Golytley encouraged her tell her that if not drinking will not be able to have colonoscopy pt continues to say I do not want to be awake I need to sleep, after mulitple times educating pt finally agrees and sat up to drink while in room drank two cups. Will continue to encourage to drink
[2024-10-17] MEDS: GABAPENTIN 100 MG CAPSULE 200 MG PO (21:48)
[2024-10-17] MEDS: LURASIDONE HCL 20 MG 80 MG PO (21:48)
[2024-10-17] MEDS: NA SU/NAHCO3/KC/PEG (Golytely) 4,000 ML BTL 4000 ML PO (23:07)
[2024-10-17] MEDS: SIMETHICONE 80 MG CHEW PO (23:07)
[2024-10-18] VITALS (23 sets, daily range): BP systolic 83–137; BP diastolic 52–96; PULSE 65–95; RESP 12–19; TEMP 36.1–36.3; O2SAT 94–100
[2024-10-18] MEDS: HYDROcodone/APAP 5/325 TABLET 1 TAB PO ×4 (03:32→22:48)
[2024-10-18] MEDS: RINGERS LACTATED 1000 ML 1,000 ML 100 ML IV ×3 (03:33→22:49)
--- NOTE | 2024-10-18 04:18 | PC.NURSE ---
Pt requests to have Ami Rubio as her point of contact [phone]
[2024-10-18 05:32] LABS: Basophils # (Auto) 0.0 Thou/mm3 (0.0-0.2); Basophils % (Auto) 0 % (0-2.5); Eosinophils # (Auto) 0.1 Thou/mm3 (0.0-0.5); Eosinophils % (Auto) 2 % (0-10); Hematocrit 37.3 % (36.0-46.0); Hemoglobin 11.8 g/dL (12.0-16.0); Immature Granulocytes Auto 0.03 Thou/mm3 (0.00-0.00); Lymphocytes # (Auto) 2.6 Thou/mm3 (1.0-4.8); Lymphocytes % (Auto) 40 % (10-50); Mean Corpuscular HGB Conc 31.6 g/dl (31.0-37.0); Mean Corpuscular Hemoglobin 31.1 pg (25.0-35.0); Mean Corpuscular Volume 98 fL (80-100); Monocytes # (Auto) 0.5 Thou/mm3 (0.0-0.8); Monocytes % (Auto) 7 % (0-12); Neutrophils # (Auto) 3.3 Thou/mm3 (1.8-7.7); Neutrophils % (Auto) 50 % (37-80); Nucleated Red Blood Cell # 0.00 Thou/mm3 (0.00-0.00); Nucleated Red Blood Cell % 0 /100 WBC (0); Platelet Count 288 Thou/mm3 (140-440); RDW Standard Deviation 56.0 fL (36.4-46.3); Red Blood Count 3.79 Miln/mm3 (4.00-5.20); White Blood Count 6.5 Thou/mm3 (3.6-11.0)
[2024-10-18 05:36] LABS: Alanine Aminotransferase 16 U/L (10-49); Albumin, Serum 3.7 gm/dL (3.5-5.0); Albumin/Globulin Ratio 1.9 (1.2-2.2); Alkaline Phosphatase 52 U/L (46-116); Anion Gap 8 (7-16); Aspartate Amino Transferase 12 U/L (0-34); BUN/Creatinine Ratio 17 Ratio (12-20); Bilirubin,Total 0.2 mg/dL (0.3-1.2); Blood Urea Nitrogen 10 mg/dL (9-23); Calcium 10.0 mg/dL (8.3-10.6); Calcium (Corrected) 10.2 mg/dL (8.5-10.1); Carbon Dioxide 25.8 mMol/L (20.0-31.0); Chloride 110 mMol/L (98-107); Creatinine (Component) 0.6 mg/dL (0.6-1.3); Estimated Creatinine Clearance 123.6 mL/min (>60); Globulin 1.9 gm/dL (2.3-3.5); Glucose 115 mg/dL (74-106); Magnesium 2.1 mg/dL (1.6-2.6); Osmolality,Calculated 286 (275-295); Phosphorous 2.3 mg/dL (2.4-5.1); Potassium 3.8 mMol/L (3.4-5.1); Sodium 144 mMol/L (136-145); Total Protein 5.6 gm/dL (5.7-8.2); eGFR > 60 See Note
[2024-10-18] MEDS: LEVOTHYROXINE SODIUM 25 MCG TABLET 50 MCG PO (05:41)
[2024-10-18] MEDS: MG HYD/AL HYD/SIME (Maalox Reg) SUSP 30 ML UDC 15 ML PO ×3 (05:41→23:47)
[2024-10-18] MEDS: SUCRALFATE SUSP 1 GM/10 ML UDC PO ×3 (05:41→22:47)
[2024-10-18] MEDS: POLYETHYLENE GLYCOL 17 GM PACKET PO (08:29)
[2024-10-18] MEDS: TOPIRAMATE 100 MG TABLET PO ×2 (08:29→22:48)
[2024-10-18] MEDS: LITHIUM CARB 150 MG CAPSULE 300 MG PO (08:29)
[2024-10-18] MEDS: ENOXAPARIN SOD INJ 40 MG/0.4 ML SYRINGE SC (08:33)
--- NOTE | 2024-10-18 09:09 | PC.SS ---
Follow up note: Colonoscopy pending. Once cleared, patient can d/c to [facility] if still accepting by tomorrow.
--- NOTE | 2024-10-18 10:46 | CHAP ---
Patient expressed gratitude for visit and prayer.
[2024-10-18] MEDS: ACETAMINOPHEN 325 MG TABLET 650 MG PO (11:06)
--- NOTE | 2024-10-18 15:21 | PD.RESPRO ---
Documentation for date of: 10/18/24 Subjective Subjective Interval history: Pt examined at bedside. Pt reports she is doing well. She is pending colonoscopy and is wondering when she is going to get it. She has no other complaints at this time. Exam Vital Signs Temp Pulse Resp BP Pulse Ox O2 Del Method O2 Flow Rate 97.0 F 81 16 112/69 98 Room Air 3 10/19/24 11:30 10/19/24 11:30 10/19/24 11:30 10/19/24 11:30 10/19/24 11:30 10/19/24 11:30 10/18/24 19:41 Narrative Exam General: A/O x3, no acute distress Eyes: PERRLA, EOMI. Anicteric. Ears: No ear pain, no ear discharge, Hearing intact. Nose: No nasal discharge. Mouth/Throat: Moist mucous membranes, no redness, no lesions. Neck: Neck supple, non-tender, no cervical lymphadenopathy. Lungs: GAEB, No accessory muscle use. No crackles or adventitious sounds. Cardio: Normal S1/S2, regular rhythm, no murmurs Abdomen: Soft, no distention, tenderness to the epigastric region, no guarding. Extremities: Symmetrical, no significant deformities, +1 bilat pitting peripheral edema , bilateral tenderness to arms, thighs, feet. Skin: No rashes, no lesions, warm to touch. Neuro: No aphasia, no facial asymmetry, moving all 4 limbs well. Psych: Cooperative, no flight of ideas Objective Labs 10/19/24 05:32 10/19/24 05:32 Quality Measures Quality Measures VTE prophylaxis Assessment & Plan Assessment Current Active Medications: Generic Name Dose Route Start Last Admin Trade Name Freq PRN Reason Stop Dose Admin Acetaminophen 650 mg 10/12/24 18:45 Acetaminophen 325 Mg Tablet PO 11/11/24 18:44 Q6H PRN PAIN SCALE 1-3 (mild Hydrocodone Bitart/Acetaminophen 1 tab 10/16/24 12:17 10/16/24 13:20 Hydrocodone/Apap 5/325 Tablet PO 10/21/24 12:16 1 tab Q4HR PRN Administration Pain 4-7 or breakthrough Al Hydrox/Mg Hydrox/Simethicone 15 ml 10/14/24 00:00 10/16/24 11:58 Mg Hyd/Al Hyd/Ivory (Maalox Reg) Susp 30 Ml Udc PO 11/13/24 00:00 15 ml Q6HR BEATRIZ Administration Albuterol/Ipratropium 3 ml 10/12/24 19:06 Albuterol/Ipratropium (Duoneb) Rt Holly 3 Ml Nebu INH 11/12/24 00:59 Q6HRRT PRN sob/wheezing Enoxaparin Sodium 40 mg 10/13/24 09:00 10/16/24 08:38 Enoxaparin Sod Inj 40 Mg/0.4 Ml Syringe SC 10/27/24 08:59 40 mg QDAY BEATRIZ Administration Gabapentin 200 mg 10/16/24 21:00 Gabapentin 100 Mg Capsule PO 11/15/24 20:59 HS BEATRIZ Lactated Ringer's 1,000 mls @ 100 mls/hr 10/15/24 10:18 10/16/24 06:06 Lactated Ringers IV 11/14/24 10:17 100 mls/hr .Q10H BEATRIZ Administration Levothyroxine Sodium 50 mcg 10/15/24 06:00 10/16/24 06:06 Levothyroxine Sodium 25 Mcg Tablet PO 11/14/24 05:59 50 mcg ACBR BEATRIZ Administration [place] Carbonate 300 mg 10/14/24 09:00 10/16/24 08:37 [place] Carb 150 Mg Capsule PO 11/13/24 08:59 300 mg DAILY BEATRIZ Administration Lurasidone HCl 80 mg 10/15/24 21:00 10/15/24 20:31 Lurasidone Hcl 20 Mg Tablet (Non-Formulary) PO 11/14/24 20:59 80 mg HS BEATRIZ Administration Protocol Ondansetron HCl 4 mg 10/12/24 18:58 10/13/24 19:29 Ondansetron Inj 2 Mg/Ml Inj 2 Ml IVP 11/11/24 18:57 4 mg Q6H PRN Administration NAUSEA OR VOMITING Protocol Pantoprazole Sodium 40 mg 10/15/24 21:00 10/16/24 08:37 Pantoprazole Inj 40 Mg Vial IV 11/14/24 20:59 40 mg BID BEATRIZ Administration Polyethylene Glycol 17 gm 10/14/24 17:30 10/16/24 08:38 Polyethylene Glycol 17 Gm Packet PO 11/13/24 17:29 17 gm QDAY BEATRIZ Administration Sucralfate 1 gm 10/14/24 06:00 10/16/24 11:58 Sucralfate Susp 1 Gm/10 Ml Udc PO 11/13/24 05:59 1 gm QID BEATRIZ Administration Topiramate 100 mg 10/14/24 09:00 10/16/24 08:37 Topiramate 100 Mg Tablet PO 11/13/24 08:59 100 mg BID BEATRIZ Administration Plan Assessment: A 44-year-old female with significant psychiatric history for bipolar disorder, depression/anxiety, schizophrenia, night terrors presents to the emergency department with a two-month history of persistent, severe epigastric abdominal pain, accompanied by nausea, vomiting, and diarrhea. Patient has been admitted for workup of active peptic ulcer disease/pancreatitis. #Intractable Nausea/Vomiting 2/2 #Peptic Ulcer Disease #Suspected Pancreatitis Causes of PUD include H. pylori, NSAID use, smoking, EtOH use, Stress, Mukesh-Wyatt syndrome Causes of pancreatitis gallstones, alcohol, hypertriglyceridemia Patient has had epigastric pain for the past 2 months, that has not gotten better, but also has not gotten worse. She feels that the pain is not pain is not being well-managed. CT scan of the abdomen/pelvis: Active peptic disease involving the duodenum. Suspicious for pancreatitis. Consider MRCP follow-up. Small bowel ileus Pending colonscopy Plan ? NPO ? Pending colonoscopy ? Pantoprazole to 40 mg IV BID ? Hydromorphone 1 mg IV every 4 hours as needed ? Zofran as needed Constipation Finished Bowel prep ? MiraLAX 17 g daily ? Pending colonoscopy #Fibromyalgia ? chronic Patient not a good historian Patient's current bilateral arm pain, thigh pain, feet pain likely related ? Added gabapentin 200 mg qHS ? If not resolving may consider other medications #Mild Primary Hyperparathyroidism PTH 61.2 Ca 10.2 - mild elevation Phos Vit D 49.2 (normal sufficency) Calcium on high end, PTH on higher end of assay, vit D and kidney function normal Plan - Outpatient F/U for further investigation with imaging #Biliary colic #No cholelithiasis #Cholecystitis ruled out Less suspicion for cholangitis at this time as patient does not have elevation in total bilirubin, ALP or liver enzymes. Grullon sign positive No fever. Vital signs within normal limit. White blood cell count 5.7 Right upper quadrant ultrasound: negative for cholelithiasis, normal common bile duct ?Monitor #Right hip pain Hip x-ray 10/14/2024: Minimal bilateral hip osteoarthritis, no fracture or dislocation ? Monitor ? Treat pain as necessary #Hypothyroidism Patient's usual dose of levothyroxine is 50 mcg p.o. daily TSH 10.24, free T4 0.91 ? levothyroxine p.o. 50 mcg daily as per home med #Bipolar disorder [place] level <0.1 ? Resumed lithium carbonate 300 mg daily #Depression/anxiety #Schizophrenia ? Resumed lurasidone 80 mg daily ? Resume topiramate 100 mg twice daily Health Maintenance: Diet: Full diabetic diet GI prophylaxis: Pantoprazole 40 mg daily DVT prophylaxis: Enoxaparin 40 mg subcu daily Antibiotics: None CODE STATUS: Full Case discussed with my attending Dr. Magda Mcmahon, PGY-2 Attending Provider Attestation/Addendum I attest that I was physically present for the evaluation, physical examination, lab and imaging review of the patient with the residents. I discussed the case with the residents and agree with the findings and plans of care as documented above. Gustavo Man MD
--- NOTE | 2024-10-18 15:50 | PC.SS ---
Follow up note: Patient had worked with PT today and ambulated 300 feet. Patient does not qualify for SNF at this time. SS met with patient this afternoon to discuss discharging home. Patient agreeable. Patient states her friend, Johan, will check in on her. Patient verbalized she would like Johan to be her yard person. Patient states she takes the bus but at the time of discharge asked if we can get her a ride home. D/c plan: return home. No barriers at this time.
[2024-10-18] MEDS: GABAPENTIN 100 MG CAPSULE 200 MG PO (22:48)
[2024-10-18] MEDS: LURASIDONE HCL 20 MG 80 MG PO (22:48)
[2024-10-19] VITALS: BP 119/75; PULSE 79; PULSE 91; RESP 14; TEMP 36.1; O2SAT 97
[2024-10-19 04:00] VITALS: BP 103/65; PULSE 80; PULSE 85; RESP 19; TEMP 36.1; O2SAT 96
[2024-10-19 06:13] LABS: Basophils # (Auto) 0.0 Thou/mm3 (0.0-0.2); Basophils % (Auto) 1 % (0-2.5); Eosinophils # (Auto) 0.2 Thou/mm3 (0.0-0.5); Eosinophils % (Auto) 3 % (0-10); Hematocrit 35.0 % (36.0-46.0); Hemoglobin 11.2 g/dL (12.0-16.0); Immature Granulocytes Auto 0.02 Thou/mm3 (0.00-0.00); Lymphocytes # (Auto) 2.4 Thou/mm3 (1.0-4.8); Lymphocytes % (Auto) 37 % (10-50); Mean Corpuscular HGB Conc 32.0 g/dl (31.0-37.0); Mean Corpuscular Hemoglobin 31.2 pg (25.0-35.0); Mean Corpuscular Volume 98 fL (80-100); Monocytes # (Auto) 0.6 Thou/mm3 (0.0-0.8); Monocytes % (Auto) 9 % (0-12); Neutrophils # (Auto) 3.3 Thou/mm3 (1.8-7.7); Neutrophils % (Auto) 51 % (37-80); Nucleated Red Blood Cell # 0.00 Thou/mm3 (0.00-0.00); Nucleated Red Blood Cell % 0 /100 WBC (0); Platelet Count 260 Thou/mm3 (140-440); RDW Standard Deviation 55.3 fL (36.4-46.3); Red Blood Count 3.59 Miln/mm3 (4.00-5.20); White Blood Count 6.5 Thou/mm3 (3.6-11.0)
[2024-10-19] MEDS: HYDROcodone/APAP 5/325 TABLET 1 TAB PO ×2 (06:31→12:30)
[2024-10-19] MEDS: LEVOTHYROXINE SODIUM 25 MCG TABLET 50 MCG PO (06:32)
[2024-10-19] MEDS: MG HYD/AL HYD/SIME (Maalox Reg) SUSP 30 ML UDC 15 ML PO ×2 (06:33→12:29)
[2024-10-19] MEDS: SUCRALFATE SUSP 1 GM/10 ML UDC PO ×2 (06:33→12:29)
[2024-10-19 06:41] LABS: Alanine Aminotransferase 15 U/L (10-49); Albumin, Serum 3.4 gm/dL (3.5-5.0); Albumin/Globulin Ratio 1.8 (1.2-2.2); Alkaline Phosphatase 46 U/L (46-116); Anion Gap 10 (7-16); Aspartate Amino Transferase 13 U/L (0-34); BUN/Creatinine Ratio 10 Ratio (12-20); Bilirubin,Total 0.2 mg/dL (0.3-1.2); Blood Urea Nitrogen 6 mg/dL (9-23); Calcium 9.9 mg/dL (8.3-10.6); Calcium (Corrected) 10.4 mg/dL (8.5-10.1); Carbon Dioxide 21.8 mMol/L (20.0-31.0); Chloride 112 mMol/L (98-107); Creatinine (Component) 0.6 mg/dL (0.6-1.3); Estimated Creatinine Clearance 123.6 mL/min (>60); Globulin 1.9 gm/dL (2.3-3.5); Glucose 110 mg/dL (74-106); Magnesium 1.7 mg/dL (1.6-2.6); Osmolality,Calculated 285 (275-295); Phosphorous 3.8 mg/dL (2.4-5.1); Potassium 4.0 mMol/L (3.4-5.1); Sodium 144 mMol/L (136-145); Total Protein 5.3 gm/dL (5.7-8.2); eGFR > 60 See Note
[2024-10-19 07:00] VITALS: PULSE 75; RESP 16; O2SAT 98
[2024-10-19 07:30] VITALS: BP 103/57; PULSE 79; RESP 16; TEMP 36.1; O2SAT 99
[2024-10-19] MEDS: TOPIRAMATE 100 MG TABLET PO (10:15)
[2024-10-19] MEDS: LITHIUM CARB 150 MG CAPSULE 300 MG PO (10:15)
[2024-10-19] MEDS: ENOXAPARIN SOD INJ 40 MG/0.4 ML SYRINGE SC (10:16)
[2024-10-19] MEDS: POLYETHYLENE GLYCOL 17 GM PACKET PO (10:16)
[2024-10-19] MEDS: ACETAMINOPHEN 325 MG TABLET 650 MG PO (10:26)
[2024-10-19 11:30] VITALS: BP 112/69; PULSE 81; RESP 16; TEMP 36.1; O2SAT 98
--- NOTE | 2024-10-19 12:00 | PC.SS ---
Patient has d/c orders and will d/c home today. Patient will need transport home. Discussed with nursing.
--- NOTE | 2024-10-19 14:14 | PC.NURSE ---
Pt to be discharged; awaiting ride; ss to set up. pts meds were held in pharmacy; meds picked up at handed back to patient.
--- NOTE | 2024-10-19 17:38 | ESDS_ITS ---
Planned Discharge Date 10/19/24 DS: Providers Provider Date of admission: 10/12/24 18:45 Primary care physician: Avinash Patel MD Admitting Provider: Marley Johnson DO Attending Provider on Admission: Ari Colvin MD Consults: 10/12/24 17:49 Consult to Gastroenterology Stat Comment: Consulting Provider: Dalton Cooley 10/13/24 22:29 Consult to General Surgery Routine Comment: Consulting Provider: Noé Lopez 10/14/24 10:07 Referral Physical Therapy Routine Comment: Physician Instructions: Attending Provider on DC: Dr. Ky Gama DO Discharging Provider: Dr. Ky Gama DO DS: Diagnosis Problem List Completed Was Problem List Reviewed/Reconciled?: Yes Hospital Course Hospital Course Hospital course: A 44-year-old female with hypothyroidism, bipolar disorder, depression/anxiety, schizophrenia, and fibromyalgia presents to the emergency department who was admitted to [facility] on October 12, 2024 for pancreatitis and intratable nausea and vomiting. Patient had arrived to the ED with a temperature 98.2?F, Pulse 77 bpm, Respiratory Rate 18 bpm, Blood Pressure 123/81 mmHg, Oxygen Saturation 98% on room air. A CT abdomen and pelvis was performed, revealing early pancreatitis with inflammation at the pancreatic head. CBC, CMP, and lipase levels were all unremarkable. Gastroenterology was consulted (Dr. Cooley), and an endoscopy is being considered. Patient's pain was controlled with morphine. Medicine was consulted patient admitted to the floors. While on the floors, patient received analgesia and IV lactated Ringer's at a high rate for management pancreatitis. Patient also had EGD done by Dr. Cooley which showed gastritis and nonbleeding duodenal ulcer. General surgery, Dr Lopez, was consulted for evaluation further consultation of duodenal ulcer and he had recommended no surgical intervention at this time. Patient was treated with Protonix for further management of ulcer which she is going to continue PPI outpatient for at least 3 months for management of ulcer and gastritis. Colonoscopy was performed showing perianal hemorrhoids along with 1 cm or larger polyp in the rectum which was removed. GI recommended repeat colonoscopy in 5 years. Patient also had psych medicines resumed while inpatient including lithium and lithium level was tested while inpatient and it was actually below the normal range which can indicate that patient was not taking it. Patient continued to improve, however patient was experiencing some hip pain in which she got imaging for with plain films and it showed hip osteoarthritis in which we had told her to follow-up with her PCP and continue with analgesics. Patient was also found to have corrected calcium that was elevated, PTH and vitamin D were ordered, PTH was low normal and vitamin D levels were elevated. We curbside it endocrine who had suggested patient had primary hyperparathyroidism and recommend patient to follow-up outpatient for evaluation of primary hyperparathyroidism. Patient does also have history of fibromyalgia in which we told her to follow-up outpatient as well. Discharge Instructions: Follow up with PCP within on week of d/c Continue to take meds as prescribed See your continuous improvement lead, Dr. Cooley, to follow up from the hospital on your pathology results from EGD within 1-2 weeks. Address: [facility] [place] [id number]. . Call to make an appointment. You will need repeat colonoscopy in 5 years. Continue Taking Omeprazole 40 mg for 3 months, take one tablet by mouth every day 30 minutes before breakfast. This is to treat your gastritis Follow up with your Psychiatrist when able in regards to continuing to your psych meds Return to ER if your symptoms worsen or return Speak with your PCP in regards for evaluation of primary hyperparathyroidism. Your calcium levels were high in the hospital, speak with your PCP if you need to speak with an needle punch operator to further evaluate you and if you need surgical intervention with ENT. Repeat TSH level in 4-6 weeks as it was slightly elevated in the hospital. Problem List: #Intractable Nausea/Vomiting 2/2 #Peptic Ulcer Disease #Suspected Pancreatitis #Constipation #Fibromyalgia ? chronic #Mild Primary Hyperparathyroidism #Biliary colic #No cholelithiasis #Cholecystitis ruled out #Right hip pain #Subclinical Hypothyroidism #Bipolar disorder #Depression/anxiety #Schizophrenia Case was discussed with attending physician. Pao Lazo DO PGY II This document was transcribed using voice recognition technology. Minor inaccuracies may be present. Time Spent with Patient Time attestation: Total time spent providing and/or coordinating discharge services: Time spent: Greater than 30 minutes Exam Vital Signs Temp Pulse Resp BP Pulse Ox O2 Del Method O2 Flow Rate 97.0 F 81 16 112/69 98 Room Air 3 10/19/24 11:30 10/19/24 11:30 10/19/24 11:30 10/19/24 11:30 10/19/24 11:30 10/19/24 11:30 10/18/24 19:41 Narrative Exam General: A/O x3, no acute distress Eyes: PERRLA, EOMI. Anicteric. Ears: No ear pain, no ear discharge, Hearing intact. Nose: No nasal discharge. Mouth/Throat: Moist mucous membranes, no redness, no lesions. Neck: Neck supple, non-tender, no cervical lymphadenopathy. Lungs: GAEB, No accessory muscle use. No crackles or adventitious sounds. Cardio: Normal S1/S2, regular rhythm, no murmurs Abdomen: Soft, no distention, tenderness to the epigastric region, no guarding. Extremities: Symmetrical, no significant deformities, +1 bilat pitting peripheral edema , bilateral tenderness to arms, thighs, feet. Skin: No rashes, no lesions, warm to touch. Neuro: No aphasia, no facial asymmetry, moving all 4 limbs well. Psych: Cooperative, no flight of ideas Discharge Plan Plan Patient Disposition: HOME (Self Care) Patient condition on transfer: Stable Care Plan Goals: Follow up with PCP within on week of d/c Continue to take meds as prescribed See your continuous improvement lead, Dr. Cooley, to follow up from the hospital on your pathology results from EGD within 1-2 weeks. Address: [facility] [place] [address]. . Call to make an appointment. You will need repeat colonoscopy in 5 years. Continue Taking Omeprazole 40 mg for 3 months, take one tablet by mouth every day 30 minutes before breakfast. This is to treat your gastritis Follow up with your Psychiatrist when able in regards to continuing to your psych meds Return to ER if your symptoms worsen or return Speak with your PCP in regards for evaluation of primary hyperparathyroidism. Your calcium levels were high in the hospital, speak with your PCP if you need to speak with an needle punch operator to further evaluate you and if you need surgical intervention with ENT. Repeat TSH level in 4-6 weeks as it was slightly elevated in the hospital. Prescriptions/Referrals Prescriptions/Med Rec: New hydrocodone-acetaminophen 5-325 mg tablet 1 tab PO Q6H MDD max 4 tabs per day PRN (Reason: pain) Qty: 10 0RF Continued topiramate 100 mg Tablet 100 mg PO BID ondansetron 4 mg tablet,disintegrating 4 mg PO Q8H PRN (Reason: nausea and vomiting) Qty: 10 0RF paroxetine HCl 20 mg tablet 20 mg PO HS Patient Comments: TAKE ONE TABLET BY MOUTH AT BEDTIME prazosin 2 mg capsule 3 mg PO HS Patient Comments: TAKE three CAPSULE BY MOUTH AT BEDTIME levothyroxine 50 mcg tablet 50 mcg PO DAILY Patient Comments: TAKE ONE TABLET BY MOUTH EVERY MORNING FOR THYROID lithium carbonate 300 mg capsule 300 mg PO DAILY Patient Comments: TAKE ONE CAPSULE BY MOUTH TWICE DAILY gabapentin 100 mg capsule 200 mg PO HS Patient Comments: TAKE TWO CAPSULES BY MOUTH AT BEDTIME FOR NERVE PAIN lurasidone 80 mg tablet 80 mg PO .qEVENING Patient Comments: TAKE ONE TABLET BY MOUTH EVERY EVENING omeprazole 40 mg capsule,delayed release(DR/EC) 40 mg PO QDAY Qty: 30 0RF Discontinued tramadol-acetaminophen [Ultracet] 37.5-325 mg tablet 1 tab PO TID PRN (Reason: pain) Qty: 30 0RF diphenhydramine HCl [Banophen] 25 mg capsule 25 mg PO BID Patient Comments: TAKE ONE CAPSULE BY MOUTH TWICE DAILY FOR ALLERGY. famotidine 40 mg tablet 40 mg PO .bedtime Qty: 30 0RF ondansetron 4 mg tablet,disintegrating 4 mg PO TID PRN (Reason: nausea and vomiting) 30 Days Qty: 10 0RF Referrals: Avinash Patel MD [Primary Care Provider] - Patient/Caregiver Discharge Instructions Discharge Activity: as per physical therapy and activity as tolerated Education Materials: Parathyroid Hormone, Parathyroid Glands, Abdominal Pain, Treating Gastritis, Understanding Gastritis, ED Gastritis (Adult) Print Language: Maldivian Stand Alone Forms: [facility] Award Info., Patient Portal Info Letter Discharge Order Discharge Orders: Discharge (Routine); Ordered 10/19/24 Ordered By: Pao Lazo Quality Discharge Quality Measures VTE prophylaxis Attestestation Attestation I have discussed and was present for the essential components of the discharge history, physical examination, diagnosis, and discharge treatment plan with the resident. I agree with the patient's discharge care as documented by the resident and amended herein by me. Omi Gama, . The patient understood all discharge instructions, all questions were answered satisfactorily. The patient was instructed to return to the Emergency Department is symptoms worsened or persisted. The patient was stable, afebrile, tolerating p.o. intake and ambulatory at time of discharge home. Additionally, the patient was tolerating diet well with no issues. Pain much improved since admission. Although this document has been carefully reviewed, there may still be some phonetic and other typographical errors. These errors are purely grammatical due to imperfections in the software program and should not be construed in any way to compromise the substance of the patient's medical care during this visit.
--- NOTE | 2024-10-19 22:52 | ESPR_ITS ---
Documentation for date of: 10/19/24 Subjective Subjective Interval history: Late entry for the note Case discussed with internal medicine team Okay to discharge patient home to be followed by the PCP Repeat colonoscopy in 5 years Exam Vital Signs Temp Pulse Resp BP Pulse Ox O2 Del Method O2 Flow Rate 97.0 F 81 16 112/69 98 Room Air 3 10/19/24 11:30 10/19/24 11:30 10/19/24 11:30 10/19/24 11:30 10/19/24 11:30 10/19/24 11:30 10/18/24 19:41 Objective Labs 10/19/24 05:32 10/19/24 05:32 Labs: Laboratory Results - last 24 hr 10/19/24 05:32 WBC 6.5 RBC 3.59 L Hgb 11.2 L Hct 35.0 L MCV 98 MCH 31.2 MCHC 32.0 RDW Std Deviation 55.3 H Plt Count 260 Neut % (Auto) 51 Lymph % (Auto) 37 [place] % (Auto) 9 Eos % (Auto) 3 Baso % (Auto) 1 Neut # (Auto) 3.3 Lymph # (Auto) 2.4 [place] # (Auto) 0.6 Eos # (Auto) 0.2 Baso # (Auto) 0.0 Immature Gran # (Auto) 0.02 H Absolute Nucleated RBC 0.00 Immature Gran % 0 Nucleated RBC % 0 Sodium 144 Potassium 4.0 Chloride 112 H Carbon Dioxide 21.8 Anion Gap 10 BUN 6 L Creatinine 0.6 Estim Creat Clear Calc 123.6 eGFR > 60 BUN/Creatinine Ratio 10 L Glucose 110 H Calculated Osmolality 285 Calcium 9.9 Corrected Calcium 10.4 H Phosphorus 3.8 Magnesium 1.7 Total Bilirubin 0.2 L AST 13 ALT 15 Alkaline Phosphatase 46 Total Protein 5.3 L Albumin 3.4 L Globulin 1.9 L Albumin/Globulin Ratio 1.8 Impressions Impression: Rectal polyp status post endoscopic resection Pathology pending Okay to discharge patient to be followed by the PCP Assessment & Plan A&P Narrative Pain abdomen epigastric right upper quadrant with abnormal CT scan of the abdomen pelvis showing active peptic ulcer disease and possibility of a pancreatitis Worrisome differential diagnosis include penetrating duodenal ulcer Suggestions Protonix drip at 8 mg/h N.p.o. midnight tonight Consent obtained for fiberoptic esophagogastroduodenoscopy with possible biopsy possible therapeutic intervention under intravenous moderate sedation scheduled for tomorrow morning Serial CBC Repeat amylase and lipase in the morning along with CMP LFTs at the moment normal Thank you very much for the opportunity to participate in the care of this patient Time Spent With Patient Time: Total time spent is greater than 50% in coordination of care (as documented) at patient's floor/unit and/or counseling patient:
== END 2024-10-19 14:27 | disposition home or self-care (01) | DRG 241 ==
LOC: SERX 17:29 → SERHOLD 19:33 → S2NX 10-13 00:17 → S3NX 10-16 01:02
PROVIDERS: Physician Assistant Medical; Specialist; Admitting Provider Internal Medicine; Emergency Provider Emergency Medicine; PCP Family Medicine; Visit Provider Internal Medicine
PROC: 0DB48ZX Excision of Esophagogastric Junction, Via Natural or Artificial Opening Endoscopic, Diagnostic (ICD-10-PCS; CPT 43239; principal; 2024-10-13 15:30)
PROC: 0DJD8ZZ Inspection of Lower Intestinal Tract, Via Natural or Artificial Opening Endoscopic (ICD-10-PCS; CPT 45378; principal; 2024-10-18 16:30)
DX: K26.9 Duodenal ulcer, unspecified as acute or chronic, without hemorrhage or perforation (principal); F31.9 Bipolar disorder, unspecified; F20.9 Schizophrenia, unspecified; F51.4 Sleep terrors [night terrors]; R07.9 Chest pain, unspecified; F41.9 Anxiety disorder, unspecified; E03.8 Other specified hypothyroidism; E21.0 Primary hyperparathyroidism; E78.1 Pure hyperglyceridemia; F17.200 Nicotine dependence, unspecified, uncomplicated; K29.60 Other gastritis without bleeding; K29.80 Duodenitis without bleeding; K31.89 Other diseases of stomach and duodenum; K56.7 Ileus, unspecified; K62.1 Rectal polyp; K64.9 Unspecified hemorrhoids; M79.7 Fibromyalgia; K85.90 Acute pancreatitis without necrosis or infection, unspecified; M16.11 Unilateral primary osteoarthritis, right hip; Z79.890 Hormone replacement therapy; Z79.899 Other long term (current) drug therapy; Z88.0 Allergy status to penicillin
CPT/HCPCS: 36415; 73501; 74018; 74177; 76700; 80053; 80061; 80178; 81001; 82150; 82306; 83036; 83690; 83735; 83970; 84100; 84439; 84443; 84484; 84703; 85025; 85610; 87081; 93005; 93225; 94664; 96361; 96374; 96375; 96376; 97162; A4649; J0131; J1171; J1200; J1650; J2250; J2270; J2405; J2470; J3010; J3475; J3490; J7120; Q9967; A9270

== ENCOUNTER 2025-01-06 22:09 | Emergency (ER) | payer MEDICAID, SELFPAY ==
[2025-01-06 22:15] VITALS: BMI 25.0
[2025-01-06 23:15] VITALS: BP 151/89; PULSE 88; RESP 20; TEMP 36.9; O2SAT 99
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
--- NOTE | 2025-01-07 00:57 | PC.NURSE ---
ERNESTO BRITTON 327 SPEAKING WITH PT
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
--- NOTE | 2025-01-07 02:08 | PC.NURSE ---
NA FROM [facility]
--- NOTE | 2025-01-07 02:16 | PC.NURSE ---
N/A FROM [facility]. ILDA
== END 2025-01-07 02:17 | disposition home or self-care (01) ==
PROVIDERS: Emergency Provider Emergency Medicine; PCP Family Medicine
DX: S13.4XXA Sprain of ligaments of cervical spine, initial encounter (principal); R07.9 Chest pain, unspecified; Y04.2XXA Assault by strike against or bumped into by another person, initial encounter
CPT/HCPCS: 71045; 72040; 99283; A9270

== ENCOUNTER 2025-01-26 12:00 | Emergency (ER) | payer MEDICAID, SELFPAY ==
[2025-01-26 12:00] VITALS: BMI 25.8
[2025-01-26 12:10] VITALS: BP 107/75; PULSE 92; RESP 20; TEMP 37.2; O2SAT 97
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
== END 2025-01-26 14:10 | disposition home or self-care (01) ==
LOC: SERX 13:16
PROVIDERS: Emergency Provider Emergency Medicine
DX: S92.901A Unspecified fracture of right foot, initial encounter for closed fracture (principal); S93.609A Unspecified sprain of unspecified foot, initial encounter; Z20.2 Contact with and (suspected) exposure to infections with a predominantly sexual mode of transmission; X50.0XXA Overexertion from strenuous movement or load, initial encounter
CPT/HCPCS: 99281; A9270

== ENCOUNTER 2025-02-25 03:19 | Emergency (ER) | payer MEDICAID, SELFPAY ==
[2025-02-25 03:21] VITALS: PULSE 89; O2SAT 98; BMI 25.0
--- NOTE | 2025-02-25 03:24 | PD.EDHAND ---
Upper Extremity Injury RME/HPI General Chief Complaint: Hand/Wrist Problems Stated Complaint: HAND/FOOT PAIN Time Seen by Provider: 02/25/25 03:38 Arrival date/time: 02/25/25 03:19 RME / HPI RME / HPI narrative: See [facility] for Dr. Colon's HPI Documentation. Related Data Home Medications ?Medication ?Instructions ?Recorded ?Confirmed topiramate 100 mg tablet 100 mg PO BID 07/04/21 10/13/24 gabapentin 100 mg capsule 200 mg PO HS 10/13/24 10/16/24 levothyroxine 50 mcg tablet 50 mcg PO DAILY 10/13/24 10/13/24 lithium carbonate 300 mg capsule 300 mg PO DAILY 10/13/24 10/13/24 lurasidone 80 mg tablet 80 mg PO .qEVENING 10/13/24 10/13/24 paroxetine HCl 20 mg tablet 20 mg PO HS 10/13/24 10/16/24 prazosin 2 mg capsule 3 mg PO HS 10/13/24 10/16/24 Previous Rx's ?Medication ?Instructions ?Recorded ondansetron 4 mg disintegrating 4 mg PO Q8H PRN nausea and 09/06/24 tablet vomiting #10 tabs omeprazole 40 mg capsule,delayed 40 mg PO QDAY #30 caps 09/16/24 release hydrocodone 5 mg-acetaminophen 325 1 tab PO Q6H PRN pain #10 tabs 10/12/24 mg tablet cyclobenzaprine 5 mg tablet 5 mg PO BID PRN muscle spasm #10 01/07/25 tabs naproxen 250 mg tablet 250 mg PO BID PRN pain #10 tabs 01/07/25 Allergies Allergy/AdvReac Type Severity Reaction Status Date / Time amoxicillin Allergy Severe RASH TO Verified 01/26/25 12:04 ARMPITS Review of Systems Review of Systems Systems Reviewed: All systems reviewed, normal except as documented Past Medical History Past Medical History NEUROLOGIC: Positive Transient Ischemic Attacks (TIA) CARDIAC: Positive Hypercholesterolemia MUSCULOSKELETAL: Positive Musculoskeletal Disorders and Fibromyalgia PSYCHO/SOCIAL: Positive Schizophrenia, Recreational Drug Use, Bipolar Disorder, Depression, Anxiety and Behavior Problems Social History SMOKING STATUS: Current some day smoker SUBSTANCE USE: methamphetamine SUBSTANCE LAST USED: days (ago) (1) ED Exam Narrative Physical exam: See MDM for Dr. Colon's Physical Exam Documentation. Course Quality Measures none Orders Category Date Time Status XR foot comp BI min 3V Stat Exams 02/25/25 03:33 Taken XR hand BI 2V Stat Exams 02/25/25 03:33 Taken Acetaminophen Stat Lab 02/25/25 03:33 Ordered Alcohol, Blood Medical Stat Lab 02/25/25 03:33 Ordered Bilirubin,Direct Stat Lab 02/25/25 03:33 Ordered CBC Stat Lab 02/25/25 03:37 Ordered CK [Creatine Kinase] Stat Lab 02/25/25 03:33 Ordered CMP [Comprehensive Metabolic Panel] Stat Lab 02/25/25 03:33 Ordered CRP [C-Reactive Protein] Stat Lab 02/25/25 03:33 Ordered Drug Screen,Urine Stat Lab 02/25/25 03:34 Ordered ESR [Sed Rate (ESR)] Stat Lab 02/25/25 03:37 Ordered HCG,Qualitative Serum Stat Lab 02/25/25 03:33 Ordered Lactate (Lactic Acid) Stat Lab 02/25/25 03:37 Ordered Lipase Stat Lab 02/25/25 03:33 Ordered Magnesium Stat Lab 02/25/25 03:33 Ordered Procalcitonin Stat Lab 02/25/25 03:33 Ordered Salicylate Stat Lab 02/25/25 03:33 Ordered TSH [Thyroid Stimulating Hormone] Stat Lab 02/25/25 03:33 Ordered Troponin I Stat Lab 02/25/25 03:33 Ordered UA, C/S IF [Urinalysis, C/S if Indicated] Stat Lab 02/25/25 03:38 Ordered Uric Acid Stat Lab 02/25/25 03:33 Ordered VBG [Venous Blood Gas] Stat Lab 02/25/25 03:38 Ordered ALPRazoLAM [Xanax] Med 02/25/25 03:27 Discontinued 1 mg PO X1 ONE Vital Signs Vital signs: Vital Signs Temperature 97.8 F 02/25/25 03:36 Pulse Rate 90 02/25/25 03:36 Respiratory Rate 20 02/25/25 03:36 Blood Pressure 111/61 02/25/25 03:36 Pulse Oximetry (%) 97 02/25/25 03:36 Oxygen Delivery Method Room Air 02/25/25 03:36 Extremity Injury MDM Narrative MDM Narrative:: This section includes all my notes and documentations, including HPI, PE, and ED course. Ethan Colon MD HPI: 44 y/o female with Hx of Schizophrenia, Recreational Drug Use, Bipolar Disorder, Depression, and Anxiety here requesting help for her bilateral hand pain and bilateral foot pain. Admits to using methamphetamine. She describes severe tingling pain. She reports no obvious injury. Uncertain of exacerbating factors or relieving factors. No other complaints. ROS: All negative except as documented in HPI. Physical Exam: General: Alert and oriented. Appears intoxicated from methamphetamine. With continuous yelling and gyrating and movement with no obvious purpose. Eyes: Conjunctivae and lids clear. EOMI. PERRL. ENT: No nasal congestion. Neck: Supple. Heart: RRR. Lungs: No respiratory distress. Good air movement. No rhonchi, wheezing, rales. Abdomen: Soft and nontender. Skin: Warm and dry. Neuro: Alert and oriented X 3. Cranial Nerves II-XII grossly intact. No peripheral motor deficits. Musculoskeletal: All major joints and bones are not tender with no limited ROM. I reviewed EMS notes. I ordered oral Xanax 0.5 mg and x-rays and blood/urine tests. At 6 AM on 02/25/2025, the care of the patient was transferred to Dr. Grijalva. Ethan Colon MD Patient data External records reviewed:: [facility] previous records (Reviewed prior ED records from 01/26/25. Patient was seen for Acute foot pain. ) and EMS form Clinical information provided by:: patient and EMS Social determinants that could affect healthcare access:: substance use (Methamphetamine) Patient has the following chronic illnesses:: TIA, Hypercholesterolemia, Fibromyalgia, Schizophrenia, Recreational Drug Use, Bipolar Disorder, Depression, Anxiety and Behavior Problems How is presenting disease/condition affected by chronic disease/condition?: exacerbated by Evaluation data The following diagnostics were reviewed and interpreted by me:: lab results and radiology exam(s) Lab and/or radiology exams considered but not ordered:: None Interpretation Summary: Complete diagnostic tests are pending. Medications / Prescriptions Medications or Prescriptions considered but not ordered:: None Medication administrations:: Medication Administration History Discontinued Medications Alprazolam (Alprazolam 0.25 Mg Tablet) 1 mg PO X1 ONE Stop: 02/25/25 03:28 Last Admin: 02/25/25 04:28 Dose: 1 mg Documented By: JHOANA Collier 1 mg Consultations Consultation(s) initiated? (list below): No Diagnosis Upper Extremity Injury Differential Diagnosis: sprain and strain of wrist, fracture of wrist, finger sprain, dislocation of finger, fracture of hand and other (Methamphetamine intoxication) Most likely diagnosis given after review of the tests above:: Complete diagnostic tests are pending. Admission Indicated Admission indicated?: not indicated Explain why admission is indicated or not indicated:: Complete diagnostic tests are pending. Admission Request Was there a request for admission?: No Disposition Plan Disposition Plan: other (specify) (At 6 AM on 02/25/2025, the care of the patient was transferred to Dr. Grijalva. ) Discharge Plan Prescriptions/Referrals Prescriptions/Med Rec: No Action topiramate 100 mg Tablet 100 mg PO BID ondansetron 4 mg tablet,disintegrating 4 mg PO Q8H PRN (Reason: nausea and vomiting) Qty: 10 0RF hydrocodone-acetaminophen 5-325 mg tablet 1 tab PO Q6H MDD max 4 tabs per day PRN (Reason: pain) Qty: 10 0RF paroxetine HCl 20 mg tablet 20 mg PO HS Patient Comments: TAKE ONE TABLET BY MOUTH AT BEDTIME prazosin 2 mg capsule 3 mg PO HS Patient Comments: TAKE three CAPSULE BY MOUTH AT BEDTIME levothyroxine 50 mcg tablet 50 mcg PO DAILY Patient Comments: TAKE ONE TABLET BY MOUTH EVERY MORNING FOR THYROID lithium carbonate 300 mg capsule 300 mg PO DAILY Patient Comments: TAKE ONE CAPSULE BY MOUTH TWICE DAILY gabapentin 100 mg capsule 200 mg PO HS Patient Comments: TAKE TWO CAPSULES BY MOUTH AT BEDTIME FOR NERVE PAIN lurasidone 80 mg tablet 80 mg PO .qEVENING Patient Comments: TAKE ONE TABLET BY MOUTH EVERY EVENING omeprazole 40 mg capsule,delayed release(DR/EC) 40 mg PO QDAY Qty: 30 0RF naproxen 250 mg tablet 250 mg PO BID PRN (Reason: pain) Qty: 10 0RF cyclobenzaprine 5 mg tablet 5 mg PO BID PRN (Reason: muscle spasm) Qty: 10 0RF Referrals: No Primary/Family,Physician [Primary Care Provider] - In 1 week Problem List Clinical Impression: Bilateral hand pain, Bilateral foot pain, Methamphetamine intoxication Patient/Caregiver Discharge Instructions Print Language: Albanian
--- NOTE | 2025-02-25 03:33 | XR_ITS ---
Examination: Bilateral hands, 6 views. Technique: AP, Oblique, Lateral each hand total 6 views Date and time of exam: February 25, 2025, 0344 hours INDICATIONS: Bilateral hand pain beginning today Findings: No fracture or dislocation involving either hand No cortical bone erosion No foreign bodies Negative for avascular necrosis IMPRESSION: No fracture or dislocation involving either hand
--- NOTE | 2025-02-25 03:33 | XR_ITS ---
Examination: Foot bilateral, 6 views Technique: AP, oblique, lateral views each foot total 6 views Date and time of exam: February 25, 2025, 0344 hours INDICATIONS: Bilateral foot pain today FINDINGS: Ununited old fracture at the proximal aspect right fifth metatarsal No left foot fracture No foreign body No cortical bone destruction IMPRESSION: Old ununited fracture at the proximal aspect right fifth metatarsal
[2025-02-25 03:36] VITALS: BP 111/61; PULSE 90; RESP 20; TEMP 36.6; O2SAT 97
[2025-02-25 05:59] LABS: Base Excess, Venous 0 (-3-3); O2 Saturation, Venous 92 % (96-97); PCO2, Venous 44 mmHg (36-56); PO2, Venous 61 mmHg (15-58); pH, Venous 7.38 (7.33-7.66)
[2025-02-25 06:00] LABS: Lactate (Lactic Acid) 0.7 mMol/L (0.4-2.0)
[2025-02-25 06:07] LABS: Basophils # (Auto) 0.0 Thou/mm3 (0.0-0.2); Basophils % (Auto) 1 % (0-2.5); Eosinophils # (Auto) 0.2 Thou/mm3 (0.0-0.5); Eosinophils % (Auto) 2 % (0-10); Hematocrit 36.9 % (36.0-46.0); Hemoglobin 11.9 g/dL (12.0-16.0); Immature Granulocytes Auto 0.05 Thou/mm3 (0.00-0.00); Lymphocytes # (Auto) 1.7 Thou/mm3 (1.0-4.8); Lymphocytes % (Auto) 20 % (10-50); Mean Corpuscular HGB Conc 32.2 g/dl (31.0-37.0); Mean Corpuscular Hemoglobin 28.5 pg (25.0-35.0); Mean Corpuscular Volume 89 fL (80-100); Monocytes # (Auto) 0.7 Thou/mm3 (0.0-0.8); Monocytes % (Auto) 8 % (0-12); Neutrophils # (Auto) 6.0 Thou/mm3 (1.8-7.7); Neutrophils % (Auto) 70 % (37-80); Nucleated Red Blood Cell # 0.00 Thou/mm3 (0.00-0.00); Nucleated Red Blood Cell % 0 /100 WBC (0); Platelet Count 313 Thou/mm3 (140-440); RDW Standard Deviation 43.7 fL (36.4-46.3); Red Blood Count 4.17 Miln/mm3 (4.00-5.20); White Blood Count 8.6 Thou/mm3 (3.6-11.0)
[2025-02-25 06:14] LABS: Sed Rate (ESR) 22 mm/hr (0-20)
[2025-02-25 06:32] LABS: Acetaminophen < 2.0 mcg/mL (10.0-20.0); Alanine Aminotransferase 15 U/L (10-49); Albumin, Serum 4.4 gm/dL (3.5-5.0); Albumin/Globulin Ratio 1.9 (1.2-2.2); Alcohol, Blood Medical < 3.0 mg/dL (0-10.0); Alkaline Phosphatase 67 U/L (46-116); Anion Gap 7 (7-16); Aspartate Amino Transferase 21 U/L (0-34); BUN/Creatinine Ratio 18 Ratio (12-20); Bilirubin,Direct < 0.1 mg/dL (0.0-0.3); Bilirubin,Total 0.3 mg/dL (0.3-1.2); Blood Urea Nitrogen 11 mg/dL (9-23); C-Reactive Protein < 0.5 mg/dL (0.0-0.9); Calcium 10.0 mg/dL (8.3-10.6); Calcium (Corrected) 10.0 mg/dL (8.5-10.1); Carbon Dioxide 24.3 mMol/L (20.0-31.0); Chloride 109 mMol/L (98-107); Creatine Kinase 151 U/L (34-171); Creatinine (Component) 0.6 mg/dL (0.6-1.3); Estimated Creatinine Clearance 115.1 mL/min (>60); Globulin 2.3 gm/dL (2.3-3.5); Glucose 97 mg/dL (74-106); Lipase 54 U/L (12-53); Magnesium 2.1 mg/dL (1.6-2.6); Osmolality,Calculated 278 (275-295); Potassium 4.3 mMol/L (3.4-5.1); Procalcitonin < 0.04 ng/ml (0.0-0.49); Salicylate < 3.0 mg/dL; Sodium 140 mMol/L (136-145); Thyroid Stimulating Hormone 2.72 uIU/mL (0.55-4.78); Total Protein 6.7 gm/dL (5.7-8.2); Troponin I < 0.002 ng/mL (0.0-0.045); Uric Acid 3.6 mg/dL (3.1-7.8); eGFR > 60 See Note
[2025-02-25 06:36] LABS: HCG,Qualitative Serum Negative
--- NOTE | 2025-02-25 07:58 | EDNOTE_ITS ---
Upper Extremity Injury RME/HPI General Chief Complaint: Hand/Wrist Problems Stated Complaint: HAND/FOOT PAIN Time Seen by Provider: 02/25/25 03:38 Source: patient Arrival date/time: 02/25/25 03:19 44-year-old female with a history of hypothyroidism, methamphetamine abuse, presents to the emergency room with a chief complaint of bilateral hand and foot pain x 1 week Mode of arrival: ambulatory Limitations: no limitations RME / HPI RME / HPI narrative: See [facility] for Dr. Colon's HPI Documentation. Related Data Home Medications ?Medication ?Instructions ?Recorded ?Confirmed topiramate 100 mg tablet 100 mg PO BID 07/04/2110/13 gabapentin 100 mg capsule 200 mg PO HS 10/13/24 levothyroxine 50 mcg tablet 50 mcg PO DAILY 10/13/24 0 10/13/24 lithium carbonate 300 mg capsule 300 mg PO DAILY 10/1310/13/24 lurasidone 80 mg tablet 80 mg PO .qEVENING 10/13/24 10/13/24 paroxetine HCl 20 mg tablet 20 mg PO HS 10/13/2410/16 prazosin 2 mg capsule 3 mg PO HS 10/13/24 10/16/24 Previous Rx's ?Medication ?Instructions ?Recorded ondansetron 4 mg disintegrating 4 mg PO Q8H PRN nausea and 09/06/24 tablet vomiting #10 tabs omeprazole 40 mg capsule,delayed 40 mg PO QDAY #30 cap s 09/16/24 release hydrocodone 5 mg-acetaminophen 325 1 tab PO Q6H PRN pa in #10 tabs 10/12/24 mg tablet cyclobenzaprine 5 mg tablet 5 mg PO BID PRN muscle spa sm #10 01/07/25 tabs naproxen 250 mg tablet 250 mg PO BID PRN pain #10 t abs 01/07/25 Allergies Allergy/AdvReac Type Severity Reaction Status Date / Time amoxicillin Allergy Severe RASH TO Verified 01/26/25 12:04 ARMPITS Review of Systems Review of Systems Systems Reviewed: All systems reviewed, normal except as documented Constitutional Constitutional: Reports system reviewed and no additional complaints, except as documented, Denies fatigue, Denies fever(s), Denies headache(s) and Denies weakness Eyes Eyes: Reports system reviewed and no additional complaints, except as documented, Denies blurry vision and Denies change in vision ENT Ears, Nose, Mouth, and Throat: Reports system reviewed and no additional complaints, except as documented, Denies otalgia, Denies headache(s), Denies nasal congestion, Denies throat swelling and Denies vertigo Cardiovascular Cardiovascular: Reports system reviewed and no additional complaints, except as documented, Denies chest pain, Denies dyspnea and Denies dyspnea on exertion Respiratory Respiratory: Reports system reviewed and no additional complaints, except as documented, Denies chest congestion, Denies cough, Denies dyspnea, Denies dyspnea on exertion and Denies wheezing Gastrointestinal Gastrointestinal: Reports system reviewed and no additional complaints, except as documented, Denies abdominal pain, Denies cramping, Denies nausea and Denies vomiting Genitourinary Genitourinary: Reports system reviewed and no additional complaints, except as documented Musculoskeletal Musculoskeletal: Reports system reviewed and no additional complaints, except as documented, Reports abnormal gait, Reports arthralgias, Denies back pain, Reports joint swelling and Reports stiffness Integumentary/Breasts Skin/Breast: Reports system reviewed and no additional complaints, except as documented and Denies wounds Neurologic Neurologic: Reports system reviewed and no additional complaints, except as documented, Reports abnormal gait, Denies confusion, Denies headache(s), Denies lack of coordination, Denies vertigo and Denies weakness Psychiatric Psychiatric: Reports system reviewed and no additional complaints, except as documented, Denies anxiety, Denies confusion, Denies depression, Denies paranoia, Denies suicidal ideation and Denies tactile hallucinations Endocrine Endocrine: Reports system reviewed and no additional complaints, except as documented and Denies fatigue Hematologic/Lymphatic Hematologic/Lymphatic: Reports system reviewed and no additional complaints, except as documented and Denies lymphadenopathy Allergic/Immunologic Allergic/Immunologic: Reports system reviewed and no additional complaints, except as documented, Denies throat swelling, Denies urticaria and Denies wheezing Past Medical History Past Medical History NEUROLOGIC: Positive Transient Ischemic Attacks (TIA); Negative Seizures or Epilepsy CARDIAC: Positive Hypercholesterolemia; Negative Cardiac Disorders or Congestive Heart Failure RESPIRATORY: Negative Chronic Obstructive Pulmonary Disease (COPD) or Asthma GENITOURINARY: Negative Renal Disease MUSCULOSKELETAL: Positive Musculoskeletal Disorders and Fibromyalgia ENDOCRINE: Negative Diabetes Mellitus Type 1 or Diabetes Mellitus Type 2 HEMATOLOGIC: Negative Sickle Cell Disease PSYCHO/SOCIAL: Positive Schizophrenia, Recreational Drug Use, Bipolar Disorder, Depression, Anxiety and Behavior Problems OTHER HISTORY: Negative Blood Transfusions or Anesthesia Reactions Social History SMOKING STATUS: Current some day smoker SUBSTANCE USE: methamphetamine ED Exam General Limitations: Present no limitations General appearance: Present alert and in no apparent distress Head Head exam: Present atraumatic Eye Eye exam: Present normal appearance, PERRL and EOMI ENT ENT exam: Present normal exam, normal oropharynx and mucous membranes moist Neck Neck exam: Present normal inspection, full ROM and trachea midline Chest Chest inspection: Present normal inspection and symmetric chest wall rise Respiratory Respiratory exam: Present normal lung sounds bilaterally Cardiovascular Cardiovascular exam: Present regular rate, normal rhythm and normal heart sounds Abdominal Exam Abdominal exam: Present soft and normal bowel sounds Extremities Exam Extremities exam: Present normal inspection and full ROM Back Exam Back exam: Present normal inspection and full ROM Neurological Exam Neurological exam: Present alert, oriented X3 and CN II-XII intact Psychiatric Psychiatric exam: Present normal affect and normal mood Skin Skin exam: Present warm, dry, intact and normal color Course Quality Measures none Orders Category Date Time Status XR foot comp BI min 3V Stat Exams 02/25/25 03:33 Completed XR hand BI 2V Stat Exams 02/25/25 03:33 Completed Acetaminophen Stat Lab 02/25/25 05:40 Completed Alcohol, Blood Medical Stat Lab 02/25/25 05:40 Completed Bilirubin,Direct Stat Lab 02/25/25 05:40 Completed CBC Stat Lab 02/25/25 05:40 Completed CK [Creatine Kinase] Stat Lab 02/25/25 05:40 Completed CMP [Comprehensive Metabolic Panel] Stat Lab 02/25/25 05:40 Completed CRP [C-Reactive Protein] Stat Lab 02/25/25 05:40 Completed Drug Screen,Urine Stat Lab 02/25/25 03:34 Ordered ESR [Sed Rate (ESR)] Stat Lab 02/25/25 05:40 Completed HCG,Qualitative Serum Stat Lab 02/25/25 05:40 Completed Lactate (Lactic Acid) Stat Lab 02/25/25 05:40 Completed Lipase Stat Lab 02/25/25 05:40 Completed Magnesium Stat Lab 02/25/25 05:40 Completed Procalcitonin Stat Lab 02/25/25 05:40 Completed Salicylate Stat Lab 02/25/25 05:40 Completed TSH [Thyroid Stimulating Hormone] Stat Lab 02/25/25 05:40 Completed Troponin I Stat Lab 02/25/25 05:40 Completed UA, C/S IF [Urinalysis, C/S if Indicated] Stat Lab 02/25/25 03:38 Ordered Uric Acid Stat Lab 02/25/25 05:40 Completed VBG [Venous Blood Gas] Stat Lab 02/25/25 05:40 Completed ALPRazoLAM [Xanax] Med 02/25/25 03:27 Discontinued 1 mg PO X1 ONE Vital Signs Vital signs: Vital Signs Temperature 97.8 F 02/25/25 03:36 Pulse Rate 90 02/25/25 03:36 Respiratory Rate 20 02/25/25 03:36 Blood Pressure 111/61 02/25/25 03:36 Pulse Oximetry (%) 97 02/25/25 03:36 Oxygen Delivery Method Room Air 02/25/25 03:36 Extremity Injury MDM Narrative MDM Narrative:: 44-year-old female with a history of hypothyroidism, methamphetamine abuse, presents to the emergency room with a chief complaint of bilateral hand and foot pain x 1 week Patient is hemodynamically stable and in no apparent distress During my reevaluation the patient still having bilateral hand pain and foot pain. X-rays were completed and were negative for any acute findings. Blood work and urinalysis were within normal limits Patient was discharged and educated to follow-up with primary care provider in the next 24 to 48 hours and return to the emergency room for any evidence of worsening signs or symptoms Patient data External records reviewed:: [facility] previous records Clinical information provided by:: patient Social determinants that could affect healthcare access:: none Patient has the following chronic illnesses:: No chronic illness How is presenting disease/condition affected by chronic disease/condition?: no chronic disease Evaluation data The following diagnostics were reviewed and interpreted by me:: lab results and radiology exam(s) Lab and/or radiology exams considered but not ordered:: Labs and radiology exams considered and ordered Interpretation Summary: X-ray hands-Findings: No fracture or dislocation involving either hand No cortical bone erosion No foreign bodies Negative for avascular necrosis IMPRESSION: No fracture or dislocation involving either hand X-ray foot-FINDINGS: Ununited old fracture at the proximal aspect right fifth metatarsal No left foot fracture No foreign body No cortical bone destruction IMPRESSION: Old ununited fracture at the proximal aspect right fifth metatarsal Medications / Prescriptions Medications or Prescriptions considered but not ordered:: Medication given Medication administrations:: Medication Administration History Discontinued Medications Alprazolam (Alprazolam 0.25 Mg Tablet) 1 mg PO X1 ONE Stop: 02/25/25 03:28 Last Admin: 02/25/25 04:28 Dose: 1 mg Documented By: JHOANA Medication given Consultations Consultation(s) initiated? (list below): No Diagnosis Upper Extremity Injury Differential Diagnosis: fracture of hand and other (Bilateral foot pain/bilateral hand pain/methamphetamine abuse) Most likely diagnosis given after review of the tests above:: Bilateral foot pain/bilateral hand pain/methamphetamine abuse Admission Indicated Admission indicated?: not indicated Admission Request Was there a request for admission?: No Disposition Plan Disposition Plan: Discharge Discharge Attestation Discharge Attestation: The patient and all family members were given an opportunity to ask questions and understood the discharge instructions. Discharge instructions specifically effects, indications for sooner follow up or return to the emergency department, and the expected course of current diagnosis. Patient condition: Stable Discharge Plan Plan Patient Disposition: HOME (Self Care) Discharge Disposition comment: Stable Prescriptions/Referrals Prescriptions/Med Rec: No Action topiramate 100 mg Tablet 100 mg PO BID ondansetron 4 mg tablet,disintegrating 4 mg PO Q8H PRN (Reason: nausea and vomiting) Qty: 10 0RF hydrocodone-acetaminophen 5-325 mg tablet 1 tab PO Q6H MDD max 4 tabs per day PRN (Reason: pain) Qty: 10 0RF paroxetine HCl 20 mg tablet 20 mg PO HS Patient Comments: TAKE ONE TABLET BY MOUTH AT BEDTIME prazosin 2 mg capsule 3 mg PO HS Patient Comments: TAKE three CAPSULE BY MOUTH AT BEDTIME levothyroxine 50 mcg tablet 50 mcg PO DAILY Patient Comments: TAKE ONE TABLET BY MOUTH EVERY MORNING FOR THYROID lithium carbonate 300 mg capsule 300 mg PO DAILY Patient Comments: TAKE ONE CAPSULE BY MOUTH TWICE DAILY gabapentin 100 mg capsule 200 mg PO HS Patient Comments: TAKE TWO CAPSULES BY MOUTH AT BEDTIME FOR NERVE PAIN lurasidone 80 mg tablet 80 mg PO .qEVENING Patient Comments: TAKE ONE TABLET BY MOUTH EVERY EVENING omeprazole 40 mg capsule,delayed release(DR/EC) 40 mg PO QDAY Qty: 30 0RF naproxen 250 mg tablet 250 mg PO BID PRN (Reason: pain) Qty: 10 0RF cyclobenzaprine 5 mg tablet 5 mg PO BID PRN (Reason: muscle spasm) Qty: 10 0RF Referrals: No Primary/Family,Physician [Primary Care Provider] - In 1 week Problem List Clinical Impression: Bilateral hand pain, Bilateral foot pain, Methamphetamine intoxication Patient/Caregiver Discharge Instructions Education Materials: ED Myalgias Additional Instructions: Please follow-up with your primary care provider in the next 24 to 48 hours For any evidence of worsening signs or symptoms return to the emergency room immediately Print Language: Czech Stand Alone Forms: [employer] Award Info., Work/School Release, Patient Portal Info Letter PA/MOLDED PARTS INSPECTOR Supervising Physician PA/MOLDED PARTS INSPECTOR Supervising Physician: Dr. Kraft
--- NOTE | 2025-02-25 08:15 | PC.NURSE ---
Addendum entered by Ashlyn Su RN 02/25/25 08:38: PT CAME BACK FOR D/C PAPERS Original Note: LEFT W/O DISCHARGE PAPERS
== END 2025-02-25 08:16 | disposition home or self-care (01) ==
PROVIDERS: Emergency Medicine; Emergency Provider Emergency Medicine
DX: M79.671 Pain in right foot (principal); M79.672 Pain in left foot; M79.642 Pain in left hand; M79.641 Pain in right hand; F15.129 Other stimulant abuse with intoxication, unspecified
CPT/HCPCS: 36415; 73120; 73130; 73630; 80053; 80307; 80320; 80329; 81001; 82248; 82550; 82803; 83605; 83690; 83735; 84145; 84443; 84484; 84550; 84703; 85025; 85652; 86140; 99283; A9270; G0480